=== PATIENT | female | born 1955 | race Caucasian/White ===

== ENCOUNTER → 2016-09-05 | Outpatient (REF) | payer MEDICARE ==
[~2016-09-05] MED LIST: ACET50TAOT PO; COZA50TA PO; FEXO180T58 PO; FLON1SPR; FLUO20CA9 PO; INSUHUMDS SC; INSULANT SC; LOSA25TA8 PO; METO-207 PO; MONT10TA2 PO; OMEP20CA3 PO; RISP1TAB3 PO; SENN1TAB2 PO; XARE15TA PO
[2016-09-05 18:28] LABS: CREATININE FOR GFR 1.52 MG/DL (0.55-1.02); MEAN CORPUSCULAR HEMOGLOBIN 30.1 pg (27.0-33.0); MEAN CORPUSCULAR HGB CONC 32.6 g/dl (32.0-36.5); MEAN CORPUSCULAR VOLUME 92.5 fl (80.0-96.0); POTASSIUM SERUM 4.3 MEQ/L (3.5-5.1); WHITE BLOOD COUNT 10.7 K/mm3 (4.0-10.0)
== END ==
LOC: M SFHCLERA 10:57
PROVIDERS: ATTEND Family Medicine
DX: R04.0 Epistaxis (principal)

== ENCOUNTER 2016-10-30 09:52 | Emergency (ER) | payer MEDICARE ==
--- NOTE | 2016-10-30 11:39 | EDDOCDS ---
Physician Documentation [facility] Name: Sussy Plaza Age: 61 yrs Sex: Female : 1955 Arrival Date: 10/30/2016 Time: 09:52 Bed Private MD: Jason Vargas MD Disposition: 10/30/16 10:19 Discharged to Home/Self Care. Impression: Cutaneous abscess of groin - right. - Condition is Stable. - Discharge Instructions: Abscess, Heat Therapy, Hypertension. - Prescriptions for Doxycycline Hyclate 100 mg Oral Tablet - take 1 tablet by ORAL route every 12 hours; 20 tablet. - Medication Reconciliation, Local Pharmacy Hours form. - Follow up: Jason Vargas; When: 1 - 2 days; Reason: Recheck today's complaints. Follow up: Emergency Department; When: As needed; Reason: Fever > 102F, Worsening of conditions. - Problem is new. - Symptoms have improved. - Notes: apply warm compresses, take antibiotic as prescribed. call to arrange follow up appointment with your physician for recheck in 48 hrs. return to ER if you develop fevers, vomiting or worsening condition. watch your blood pressure carefully. have it rechecked at your follow up appointment. return to ER if you develop headache, blurry vision or chest pain. avoid high sodium intake Historical: - Allergies: Amoxicillin; Erythromycin; PENICILLINS; SHELLFISH; - Home Meds: 1. Xarelto 15 mg oral tab daily (Last dose: 10/30/2016 08:00) 2. omeprazole 20 mg Oral cpDR 1 cap once daily (Last dose: 10/30/2016 08:00) 3. Risperdal 1 mg Oral tab 1 tab 2 times per day (Last dose: 10/30/2016 08:00) 4. fluoxetine 40 mg oral cap 1 cap once daily (Last dose: 10/30/2016 08:00) 5. montelukast 5 mg oral chew 1 tabs once daily (Last dose: 10/30/2016 08:00) 6. losartan 25 mg oral tab 1 tab once daily (Last dose: 10/30/2016 08:00) 7. Lantus 100 unit/mL Sub-Q soln 60 unit daily (Last dose: 10/29/2016) 8. Humalog 100 unit/mL Sub-Q crtg 5 unit three times a day 50 units this morning (Last dose: 10/30/2016 08:00) - PMHx: Bipolar disorder; Diabetes - NIDDM: controlled; DVT; CHF; Atrial Fib; - PSHx: Tonsillectomy; Aneurysm Repair, Brain; ; - Social history: Smoking status: Patient states was never smoker of tobacco. No barriers to communication noted, The patient speaks fluent Cape Verdean, Speaks appropriately for age. - Family history: Not pertinent. - : The pt / caregiver states he / she is on anticoagulants: Xarelto Home medication list is obtained from the patient. - Exposure Risk Screening:: None identified. Vital Signs: 10/30 09:53 BP 186 / 80; Pulse 86; Resp 18; Temp 98.5(O); Pulse Ox 98% on R/A; Weight 119.75 kg / nb2 264 lbs (R); Height 5 ft. 6 in. (167.64 cm) (R); Pain 0/10; 10:37 BP 198 / 96 RA Sitting (man/lg); Pulse 89; Resp 18; Temp 99.1(O); Pulse Ox 97% on R/A; kpj 11:10 BP 180 / 78; Pulse 72; Resp 18; Temp 97.6(T); Pulse Ox 98% on R/A; ar3 09:53 Body Mass Index 42.61 (119.75 kg, 167.64 cm) nb2 MDM: 10:18 Wound Culture & GS - All Other Sources Ordered. EDMS 10:38 Financial registration complete. mm15 10:59 Vital Signs ordered. ar2 11:05 [facility] Payment Agreement was scanned into [employer] and attached to record. mm15 Signatures: Dispatcher [employer] EDMS Vasiliy Beach PA-C PA-C ar2 Blanca Jiménez RN RN Uriel Estrella mm15 The chart was reviewed and I authenticate all verbal orders and agree with the evaluation and treatment provided.Attachments: 11:05 [facility] Payment Agreement mm15 MTDD
--- NOTE | 2016-10-30 11:40 | EDDOCDS ---
Nurse's Notes [facility] Name: Sussy Plaza Age: 61 yrs Sex: Female : 1955 Arrival Date: 10/30/2016 Time: 09:52 Bed PR2 / Private MD: Jason Vargas MD Diagnosis: Cutaneous abscess of groin-right Presentation: 10/30 09:59 Presenting complaint: Patient states: cyst on right lower abdomen. pt states she dsf noticed it yesterday. Adult Sepsis Screening: The patient does not have new or worsening altered mentation. Patient's respiratory rate is less than 22. Systolic blood pressure is greater than 100. Patient has a qSOFA score of 0- Negative Sepsis Screen. Suicide/Homicide risk assessment- the patient denies having any suicidal and/or homicidal ideations and does not present with any other emotional, behavioral or mental health complaints. Status: Patient is not a student services representative or dependent. Transition of care: patient was not received from another setting of care. 09:59 Acuity: CHACHO Level 4 dsf 09:59 Method Of Arrival: Walkin/Carried/Asstd dsf Triage Assessment: 10:03 General: Appears in no apparent distress, Behavior is appropriate for age, cooperative. dsf Pain: Location: right lower abdominal fold Pain currently is 4 out of 10 on a pain scale. Quality of pain is described as burning, tender. HIV screening NA for this visit Offered previously. Derm: Reports cyst to right lower abdominal fold. Historical: - Allergies: Amoxicillin; Erythromycin; PENICILLINS; SHELLFISH; - Home Meds: 1. Xarelto 15 mg oral tab daily (Last dose: 10/30/2016 08:00) 2. omeprazole 20 mg Oral cpDR 1 cap once daily (Last dose: 10/30/2016 08:00) 3. Risperdal 1 mg Oral tab 1 tab 2 times per day (Last dose: 10/30/2016 08:00) 4. fluoxetine 40 mg oral cap 1 cap once daily (Last dose: 10/30/2016 08:00) 5. montelukast 5 mg oral chew 1 tabs once daily (Last dose: 10/30/2016 08:00) 6. losartan 25 mg oral tab 1 tab once daily (Last dose: 10/30/2016 08:00) 7. Lantus 100 unit/mL Sub-Q soln 60 unit daily (Last dose: 10/29/2016) 8. Humalog 100 unit/mL Sub-Q crtg 5 unit three times a day 50 units this morning (Last dose: 10/30/2016 08:00) - PMHx: Bipolar disorder; Diabetes - NIDDM: controlled; DVT; CHF; Atrial Fib; - PSHx: Tonsillectomy; Aneurysm Repair, Brain; ; - Social history: Smoking status: Patient states was never smoker of tobacco. No barriers to communication noted, The patient speaks fluent Yi, Speaks appropriately for age. - Family history: Not pertinent. - : The pt / caregiver states he / she is on anticoagulants: Xarelto Home medication list is obtained from the patient. - Exposure Risk Screening:: None identified. Screenin:37 Screening information is obtained from the patient. Fall risk: No risks identified. dsf Assistance ADL's: requires no assistance with activities of daily living. Abuse/DV Screen: The patient / caregiver reports he/she is: not in a situation that causes fear, pain or injury. Nutritional screening: No deficits noted. Advance Directives: Currently, there is no health care proxy. home support is adequate. Assessment: 10:40 General: abscess to right lower abdominal fold draining blood and some yellow dsf discharge. Culture obtained and sent . 11:37 General: Appears in no apparent distress, Behavior is appropriate for age, cooperative. dsf Neurological: Level of Consciousness is awake, alert. Cardiovascular: Capillary refill < 3 seconds. Respiratory: Airway is patent Respiratory effort is even, unlabored, Respiratory pattern is regular, symmetrical. Derm: Skin is pink, warm & dry. Vital Signs: 09:53 BP 186 / 80; Pulse 86; Resp 18; Temp 98.5(O); Pulse Ox 98% on R/A; Weight 119.75 kg nb2 (R); Height 5 ft. 6 in. (167.64 cm) (R); Pain 0/10; 10:37 BP 198 / 96 RA Sitting (man/lg); Pulse 89; Resp 18; Temp 99.1(O); Pulse Ox 97% on R/A; kpj 11:10 BP 180 / 78; Pulse 72; Resp 18; Temp 97.6(T); Pulse Ox 98% on R/A; ar3 09:53 Body Mass Index 42.61 (119.75 kg, 167.64 cm) nb2 Vitals: 09:53 Log In Time: October 30, 2016 at 09:40. 2 ED Course: 09:53 Patient visited by Charissa Wade. nb2 09:53 Jason Vargas is Private Physician. nb2 09:53 Patient moved to Waiting nb2 09:57 Patient visited by Charissa Wade. nb2 09:57 Patient moved to Pre RCE nb2 09:59 Triage Initiated dsf 10:04 Vasiliy Beach PA-C is PHCP. ar2 10:04 Arturo Alfaro MD is Attending Physician. ar2 10:04 Patient visited by Vasiliy Beach PA-C. ar2 10:04 Patient moved to Triage 1 dsf 10:19 Jason Vargas is Referral Physician. ar2 10:40 Wound Culture & GS - All Other Sources Sent. ar3 10:44 Patient moved to PR2 / dls 11:01 Patient visited by Blanca Jiménez RN. dsf 11:05 [facility] Payment Agreement was scanned into [employer] and attached to record. mm15 11:10 Patient visited by Dot Durant PCA. ar3 11:37 The patient / caregiver is instructed regarding the plan of care and ED course. dsf 11:37 No IV's were initiated during this patient's visit. No procedures done that require dsf assistance. Order Results: There are currently no results for this order. Outcome: 10:19 Discharge ordered by Provider. ar2 11:37 Discharge Assessment: Patient awake, alert and oriented x 3. No cognitive and/or dsf functional deficits noted. Patient verbalized understanding of disposition instructions. patient administered narcotics - no. The following High Risk Discharge criteria are identified: None. Discharged to home ambulatory. Condition: stable. Discharge instructions given to patient, Instructed on discharge instructions, follow up and referral plans. medication usage, Use of warm compresses to the affected area, Demonstrated understanding of instructions, medications, Pt was receptive of discharge instructions/ teaching. Prescriptions given X 1. No special radiology studies were completed. Property sent home with patient. 11:38 Patient left the ED. dsf Signatures: Kirstin Vega RN RN Marnie Mei RN RN dls Vasiliy Beach, PA-Carmelo PA-C ar2 Dot Durant, STORE KEEPER STORE KEEPER ar3 Blanca Jiménez,RN RN Uriel Estrella mm15 Charissa Wade nb2 MTDD
--- NOTE | 2016-11-01 12:39 | EDDOCDS ---
Nurse's Notes [facility] Name: Sussy Plaza Age: 61 yrs Sex: Female : 1955 Arrival Date: 10/30/2016 Time: 09:52 Bed PR2 / Private MD: Jason Vargas MD Diagnosis: Cutaneous abscess of groin-right Presentation: 10/30 09:59 Presenting complaint: Patient states: cyst on right lower abdomen. pt states she dsf noticed it yesterday. Adult Sepsis Screening: The patient does not have new or worsening altered mentation. Patient's respiratory rate is less than 22. Systolic blood pressure is greater than 100. Patient has a qSOFA score of 0- Negative Sepsis Screen. Suicide/Homicide risk assessment- the patient denies having any suicidal and/or homicidal ideations and does not present with any other emotional, behavioral or mental health complaints. Status: Patient is not a government services professional or dependent. Transition of care: patient was not received from another setting of care. 09:59 Acuity: CHACHO Level 4 dsf 09:59 Method Of Arrival: Walkin/Carried/Asstd dsf Triage Assessment: 10:03 General: Appears in no apparent distress, Behavior is appropriate for age, cooperative. dsf Pain: Location: right lower abdominal fold Pain currently is 4 out of 10 on a pain scale. Quality of pain is described as burning, tender. HIV screening NA for this visit Offered previously. Derm: Reports cyst to right lower abdominal fold. Historical: - Allergies: Amoxicillin; Erythromycin; PENICILLINS; SHELLFISH; - Home Meds: 1. Xarelto 15 mg oral tab daily (Last dose: 10/30/2016 08:00) 2. omeprazole 20 mg Oral cpDR 1 cap once daily (Last dose: 10/30/2016 08:00) 3. Risperdal 1 mg Oral tab 1 tab 2 times per day (Last dose: 10/30/2016 08:00) 4. fluoxetine 40 mg oral cap 1 cap once daily (Last dose: 10/30/2016 08:00) 5. montelukast 5 mg oral chew 1 tabs once daily (Last dose: 10/30/2016 08:00) 6. losartan 25 mg oral tab 1 tab once daily (Last dose: 10/30/2016 08:00) 7. Lantus 100 unit/mL Sub-Q soln 60 unit daily (Last dose: 10/29/2016) 8. Humalog 100 unit/mL Sub-Q crtg 5 unit three times a day 50 units this morning (Last dose: 10/30/2016 08:00) - PMHx: Bipolar disorder; Diabetes - NIDDM: controlled; DVT; CHF; Atrial Fib; - PSHx: Tonsillectomy; Aneurysm Repair, Brain; ; - Social history: Smoking status: Patient states was never smoker of tobacco. No barriers to communication noted, The patient speaks fluent Wolof, Speaks appropriately for age. - Family history: Not pertinent. - : The pt / caregiver states he / she is on anticoagulants: Xarelto Home medication list is obtained from the patient. - Exposure Risk Screening:: None identified. Screenin:37 Screening information is obtained from the patient. Fall risk: No risks identified. dsf Assistance ADL's: requires no assistance with activities of daily living. Abuse/DV Screen: The patient / caregiver reports he/she is: not in a situation that causes fear, pain or injury. Nutritional screening: No deficits noted. Advance Directives: Currently, there is no health care proxy. home support is adequate. Assessment: 10:40 General: abscess to right lower abdominal fold draining blood and some yellow dsf discharge. Culture obtained and sent . 11:37 General: Appears in no apparent distress, Behavior is appropriate for age, cooperative. dsf Neurological: Level of Consciousness is awake, alert. Cardiovascular: Capillary refill < 3 seconds. Respiratory: Airway is patent Respiratory effort is even, unlabored, Respiratory pattern is regular, symmetrical. Derm: Skin is pink, warm & dry. Vital Signs: 09:53 BP 186 / 80; Pulse 86; Resp 18; Temp 98.5(O); Pulse Ox 98% on R/A; Weight 119.75 kg nb2 (R); Height 5 ft. 6 in. (167.64 cm) (R); Pain 0/10; 10:37 BP 198 / 96 RA Sitting (man/lg); Pulse 89; Resp 18; Temp 99.1(O); Pulse Ox 97% on R/A; kpj 11:10 BP 180 / 78; Pulse 72; Resp 18; Temp 97.6(T); Pulse Ox 98% on R/A; ar3 09:53 Body Mass Index 42.61 (119.75 kg, 167.64 cm) nb2 Vitals: 09:53 Log In Time: October 30, 2016 at 09:40. 2 ED Course: 09:53 Patient visited by Charissa Wade. nb2 09:53 Jason Vargas is Private Physician. nb2 09:53 Patient moved to Waiting nb2 09:57 Patient visited by Charissa Wade. nb2 09:57 Patient moved to Pre RCE nb2 09:59 Triage Initiated dsf 10:04 Vasiliy Beach PA-C is PHCP. ar2 10:04 Arturo Alfaro MD is Attending Physician. ar2 10:04 Patient visited by Vasiliy Beach PA-C. ar2 10:04 Patient moved to Triage 1 dsf 10:19 Jason Vargas is Referral Physician. ar2 10:40 Wound Culture & GS - All Other Sources Sent. ar3 10:44 Patient moved to PR dls 11:01 Patient visited by Blanca Jiménez RN. dsf 11:05 [facility] Payment Agreement was scanned into [employer] and attached to record. mm15 11:10 Patient visited by Dot Durant PCA. ar3 11:37 The patient / caregiver is instructed regarding the plan of care and ED course. dsf 11:37 No IV's were initiated during this patient's visit. No procedures done that require dsf assistance. 12:29 Patient name changed from Dorathia\S\\S\Mela\S\ to Dorathia\S\ \S\Mela. EDMS Order Results: Lab Order: Wound Culture & GS - All Other Sources; SPEC'M 10/30/16 10:40 Test: GRAM STAIN; Value: GRAM STAIN RESULT; Status: F Test: GRAM STAIN; Value: NO CELLS SEEN; Status: F Test: GRAM STAIN; Value: NO ORGANISMS SEEN; Status: F Test: WOUND CULTURE; Value: <EXTERNAL COMMENT eCWMed> FULL REPORT IN LAB NOTES (eCW and Medent).; Status: F Test: WOUND CULTURE; Value: ORGANISM 1: STAPHYLOCOCCUS AUREUS; Status: F Test: WOUND CULTURE; Value: STAPHYLOCOCCUS AUREUS; Status: F Test: WOUND CULTURE; Value: QUANTITY OF GROWTH HEAVY; Status: F Test: WOUND CULTURE; Value: GRAM POS SENSI - VITEK 67; Status: F Test: WOUND CULTURE; Value: Method: VIT2; Status: F Test: WOUND CULTURE; Value: TETRACYCLINE <=1 S; Status: F Test: WOUND CULTURE; Value: PENICILLIN G >=0.5 R; Status: F Test: WOUND CULTURE; Value: TRIMETHOPRIM/SULFAMETHOXAZOLE <=10 S; Status: F Test: WOUND CULTURE; Value: ERYTHROMYCIN >=8 R; Status: F Test: WOUND CULTURE; Value: GENTAMICIN <=0.5 S; Status: F Test: WOUND CULTURE; Value: CLINDAMYCIN <=0.25 S; Status: F Test: WOUND CULTURE; Value: OXACILLIN 0.5 S; Status: F Test: WOUND CULTURE; Value: VANCOMYCIN <=0.5 S; Status: F Test: WOUND CULTURE; Value: LINEZOLID (ZYVOX) 2 S; Status: F Outcome: 10:19 Discharge ordered by Provider. ar2 11:37 Discharge Assessment: Patient awake, alert and oriented x 3. No cognitive and/or dsf functional deficits noted. Patient verbalized understanding of disposition instructions. patient administered narcotics - no. The following High Risk Discharge criteria are identified: None. Discharged to home ambulatory. Condition: stable. Discharge instructions given to patient, Instructed on discharge instructions, follow up and referral plans. medication usage, Use of warm compresses to the affected area, Demonstrated understanding of instructions, medications, Pt was receptive of discharge instructions/ teaching. Prescriptions given X 1. No special radiology studies were completed. Property sent home with patient. 11:38 Patient left the ED. dsf Signatures: Dispatcher [employer] EDMI Kirstin Vega RN RN kpj Scott, Debra, RN RN dls Robertshaw, Aaron, PA-C PAAndriy ar2 Dot Durant PCA MUD LOGGER ar3 Blanca Jiménez RN RN dsf McGrath, Marlynn mm15 Charissa Wade nb2 Chart Complete MTDD
--- NOTE | 2016-11-01 12:39 | EDDOCDS ---
Physician Documentation [facility] Name: Sussy Plaza Age: 61 yrs Sex: Female : 1955 Arrival Date: 10/30/2016 Time: 09:52 Bed Private MD: Jason Vargas MD Disposition: 10/30/16 10:19 Discharged to Home/Self Care. Impression: Cutaneous abscess of groin - right. - Condition is Stable. - Discharge Instructions: Abscess, Heat Therapy, Hypertension. - Prescriptions for Doxycycline Hyclate 100 mg Oral Tablet - take 1 tablet by ORAL route every 12 hours; 20 tablet. - Medication Reconciliation, Local Pharmacy Hours form. - Follow up: Jason Vargas; When: 1 - 2 days; Reason: Recheck today's complaints. Follow up: Emergency Department; When: As needed; Reason: Fever > 102F, Worsening of conditions. - Problem is new. - Symptoms have improved. - Notes: apply warm compresses, take antibiotic as prescribed. call to arrange follow up appointment with your physician for recheck in 48 hrs. return to ER if you develop fevers, vomiting or worsening condition. watch your blood pressure carefully. have it rechecked at your follow up appointment. return to ER if you develop headache, blurry vision or chest pain. avoid high sodium intake Historical: - Allergies: Amoxicillin; Erythromycin; PENICILLINS; SHELLFISH; - Home Meds: 1. Xarelto 15 mg oral tab daily (Last dose: 10/30/2016 08:00) 2. omeprazole 20 mg Oral cpDR 1 cap once daily (Last dose: 10/30/2016 08:00) 3. Risperdal 1 mg Oral tab 1 tab 2 times per day (Last dose: 10/30/2016 08:00) 4. fluoxetine 40 mg oral cap 1 cap once daily (Last dose: 10/30/2016 08:00) 5. montelukast 5 mg oral chew 1 tabs once daily (Last dose: 10/30/2016 08:00) 6. losartan 25 mg oral tab 1 tab once daily (Last dose: 10/30/2016 08:00) 7. Lantus 100 unit/mL Sub-Q soln 60 unit daily (Last dose: 10/29/2016) 8. Humalog 100 unit/mL Sub-Q crtg 5 unit three times a day 50 units this morning (Last dose: 10/30/2016 08:00) - PMHx: Bipolar disorder; Diabetes - NIDDM: controlled; DVT; CHF; Atrial Fib; - PSHx: Tonsillectomy; Aneurysm Repair, Brain; ; - Social history: Smoking status: Patient states was never smoker of tobacco. No barriers to communication noted, The patient speaks fluent Faroese, Speaks appropriately for age. - Family history: Not pertinent. - : The pt / caregiver states he / she is on anticoagulants: Xarelto Home medication list is obtained from the patient. - Exposure Risk Screening:: None identified. Vital Signs: 10/30 09:53 BP 186 / 80; Pulse 86; Resp 18; Temp 98.5(O); Pulse Ox 98% on R/A; Weight 119.75 kg / nb2 264 lbs (R); Height 5 ft. 6 in. (167.64 cm) (R); Pain 0/10; 10:37 BP 198 / 96 RA Sitting (man/lg); Pulse 89; Resp 18; Temp 99.1(O); Pulse Ox 97% on R/A; kpj 11:10 BP 180 / 78; Pulse 72; Resp 18; Temp 97.6(T); Pulse Ox 98% on R/A; ar3 09:53 Body Mass Index 42.61 (119.75 kg, 167.64 cm) nb2 MDM: 10:18 Wound Culture & GS - All Other Sources Ordered. EDMS 10:38 Financial registration complete. mm15 10:59 Vital Signs ordered. ar2 11:05 [facility] Payment Agreement was scanned into [employer] and attached to record. mm15 Signatures: Dispatcher [employer] EDMS Vasiliy Beach PA-C PA-C ar2 Blanca Jiménez RN RN Uriel Estrella mm15 The chart was reviewed and I authenticate all verbal orders and agree with the evaluation and treatment provided.Attachments: 11:05 [facility] Payment Agreement mm15 Chart Complete MTDD
--- NOTE | 2016-11-01 12:39 | EDDOCDS ---
Physician Documentation [facility] Name: Sussy Plaza Age: 61 yrs Sex: Female : 1955 Arrival Date: 10/30/2016 Time: 09:52 Bed Private MD: Jason Vargas MD Disposition: 10/30/16 10:19 Discharged to Home/Self Care. Impression: Cutaneous abscess of groin - right. - Condition is Stable. - Discharge Instructions: Abscess, Heat Therapy, Hypertension. - Prescriptions for Doxycycline Hyclate 100 mg Oral Tablet - take 1 tablet by ORAL route every 12 hours; 20 tablet. - Medication Reconciliation, Local Pharmacy Hours form. - Follow up: Jason Vargas; When: 1 - 2 days; Reason: Recheck today's complaints. Follow up: Emergency Department; When: As needed; Reason: Fever > 102F, Worsening of conditions. - Problem is new. - Symptoms have improved. - Notes: apply warm compresses, take antibiotic as prescribed. call to arrange follow up appointment with your physician for recheck in 48 hrs. return to ER if you develop fevers, vomiting or worsening condition. watch your blood pressure carefully. have it rechecked at your follow up appointment. return to ER if you develop headache, blurry vision or chest pain. avoid high sodium intake Historical: - Allergies: Amoxicillin; Erythromycin; PENICILLINS; SHELLFISH; - Home Meds: 1. Xarelto 15 mg oral tab daily (Last dose: 10/30/2016 08:00) 2. omeprazole 20 mg Oral cpDR 1 cap once daily (Last dose: 10/30/2016 08:00) 3. Risperdal 1 mg Oral tab 1 tab 2 times per day (Last dose: 10/30/2016 08:00) 4. fluoxetine 40 mg oral cap 1 cap once daily (Last dose: 10/30/2016 08:00) 5. montelukast 5 mg oral chew 1 tabs once daily (Last dose: 10/30/2016 08:00) 6. losartan 25 mg oral tab 1 tab once daily (Last dose: 10/30/2016 08:00) 7. Lantus 100 unit/mL Sub-Q soln 60 unit daily (Last dose: 10/29/2016) 8. Humalog 100 unit/mL Sub-Q crtg 5 unit three times a day 50 units this morning (Last dose: 10/30/2016 08:00) - PMHx: Bipolar disorder; Diabetes - NIDDM: controlled; DVT; CHF; Atrial Fib; - PSHx: Tonsillectomy; Aneurysm Repair, Brain; ; - Social history: Smoking status: Patient states was never smoker of tobacco. No barriers to communication noted, The patient speaks fluent Tongan, Speaks appropriately for age. - Family history: Not pertinent. - : The pt / caregiver states he / she is on anticoagulants: Xarelto Home medication list is obtained from the patient. - Exposure Risk Screening:: None identified. Vital Signs: 10/30 09:53 BP 186 / 80; Pulse 86; Resp 18; Temp 98.5(O); Pulse Ox 98% on R/A; Weight 119.75 kg / nb2 264 lbs (R); Height 5 ft. 6 in. (167.64 cm) (R); Pain 0/10; 10:37 BP 198 / 96 RA Sitting (man/lg); Pulse 89; Resp 18; Temp 99.1(O); Pulse Ox 97% on R/A; kpj 11:10 BP 180 / 78; Pulse 72; Resp 18; Temp 97.6(T); Pulse Ox 98% on R/A; ar3 09:53 Body Mass Index 42.61 (119.75 kg, 167.64 cm) nb2 MDM: 10:18 Wound Culture & GS - All Other Sources Ordered. EDMS 10:38 Financial registration complete. mm15 10:59 Vital Signs ordered. ar2 11:05 [facility] Payment Agreement was scanned into [employer] and attached to record. mm15 Signatures: Dispatcher [employer] EDMS Vasiliy Beach PA-C PA-C ar2 Blanca Jiménez RN RN Uriel Estrella mm15 The chart was reviewed and I authenticate all verbal orders and agree with the evaluation and treatment provided.Attachments: 11:05 [facility] Payment Agreement mm15 Chart Complete MTDD
--- NOTE | 2016-11-02 10:17 | EDDOCDS ---
Physician Documentation [facility] Name: Sussy Plaza Age: 61 yrs Sex: Female : 1955 Arrival Date: 10/30/2016 Time: 09:52 Bed Private MD: Jason Vargas MD Disposition: 10/30/16 10:19 Discharged to Home/Self Care. Impression: Cutaneous abscess of groin - right. - Condition is Stable. - Discharge Instructions: Abscess, Heat Therapy, Hypertension. - Prescriptions for Doxycycline Hyclate 100 mg Oral Tablet - take 1 tablet by ORAL route every 12 hours; 20 tablet. - Medication Reconciliation, Local Pharmacy Hours form. - Follow up: Jason Vargas; When: 1 - 2 days; Reason: Recheck today's complaints. Follow up: Emergency Department; When: As needed; Reason: Fever > 102F, Worsening of conditions. - Problem is new. - Symptoms have improved. - Notes: apply warm compresses, take antibiotic as prescribed. call to arrange follow up appointment with your physician for recheck in 48 hrs. return to ER if you develop fevers, vomiting or worsening condition. watch your blood pressure carefully. have it rechecked at your follow up appointment. return to ER if you develop headache, blurry vision or chest pain. avoid high sodium intake Historical: - Allergies: Amoxicillin; Erythromycin; PENICILLINS; SHELLFISH; - Home Meds: 1. Xarelto 15 mg oral tab daily (Last dose: 10/30/2016 08:00) 2. omeprazole 20 mg Oral cpDR 1 cap once daily (Last dose: 10/30/2016 08:00) 3. Risperdal 1 mg Oral tab 1 tab 2 times per day (Last dose: 10/30/2016 08:00) 4. fluoxetine 40 mg oral cap 1 cap once daily (Last dose: 10/30/2016 08:00) 5. montelukast 5 mg oral chew 1 tabs once daily (Last dose: 10/30/2016 08:00) 6. losartan 25 mg oral tab 1 tab once daily (Last dose: 10/30/2016 08:00) 7. Lantus 100 unit/mL Sub-Q soln 60 unit daily (Last dose: 10/29/2016) 8. Humalog 100 unit/mL Sub-Q crtg 5 unit three times a day 50 units this morning (Last dose: 10/30/2016 08:00) - PMHx: Bipolar disorder; Diabetes - NIDDM: controlled; DVT; CHF; Atrial Fib; - PSHx: Tonsillectomy; Aneurysm Repair, Brain; ; - Social history: Smoking status: Patient states was never smoker of tobacco. No barriers to communication noted, The patient speaks fluent [place] Of [place], Speaks appropriately for age. - Family history: Not pertinent. - : The pt / caregiver states he / she is on anticoagulants: Xarelto Home medication list is obtained from the patient. - Exposure Risk Screening:: None identified. Vital Signs: 10/30 09:53 BP 186 / 80; Pulse 86; Resp 18; Temp 98.5(O); Pulse Ox 98% on R/A; Weight 119.75 kg / nb2 264 lbs (R); Height 5 ft. 6 in. (167.64 cm) (R); Pain 0/10; 10:37 BP 198 / 96 RA Sitting (man/lg); Pulse 89; Resp 18; Temp 99.1(O); Pulse Ox 97% on R/A; kpj 11:10 BP 180 / 78; Pulse 72; Resp 18; Temp 97.6(T); Pulse Ox 98% on R/A; ar3 09:53 Body Mass Index 42.61 (119.75 kg, 167.64 cm) nb2 MDM: 10:18 Wound Culture & GS - All Other Sources Ordered. EDMS 10:38 Financial registration complete. mm15 10:59 Vital Signs ordered. ar2 11:05 [facility] Payment Agreement was scanned into [employer] and attached to record. mm15 Signatures: Dispatcher [employer] EDMS Vasiliy Beach PA-C PA-C ar2 Blanca Jiménez RN RN Uriel Estrella mm15 The chart was reviewed and I authenticate all verbal orders and agree with the evaluation and treatment provided.Attachments: 11:05 [facility] Payment Agreement mm15 MTDD
--- NOTE | 2016-11-02 10:18 | EDDOCDS ---
Physician Documentation [facility] Name: Sussy Plaza Age: 61 yrs Sex: Female : 1955 Arrival Date: 10/30/2016 Time: 09:52 Bed Private MD: Jason Vargas MD Disposition: 10/30/16 10:19 Discharged to Home/Self Care. Impression: Cutaneous abscess of groin - right. - Condition is Stable. - Discharge Instructions: Abscess, Heat Therapy, Hypertension. - Prescriptions for Doxycycline Hyclate 100 mg Oral Tablet - take 1 tablet by ORAL route every 12 hours; 20 tablet. - Medication Reconciliation, Local Pharmacy Hours form. - Follow up: Jason Vargas; When: 1 - 2 days; Reason: Recheck today's complaints. Follow up: Emergency Department; When: As needed; Reason: Fever > 102F, Worsening of conditions. - Problem is new. - Symptoms have improved. - Notes: apply warm compresses, take antibiotic as prescribed. call to arrange follow up appointment with your physician for recheck in 48 hrs. return to ER if you develop fevers, vomiting or worsening condition. watch your blood pressure carefully. have it rechecked at your follow up appointment. return to ER if you develop headache, blurry vision or chest pain. avoid high sodium intake Historical: - Allergies: Amoxicillin; Erythromycin; PENICILLINS; SHELLFISH; - Home Meds: 1. Xarelto 15 mg oral tab daily (Last dose: 10/30/2016 08:00) 2. omeprazole 20 mg Oral cpDR 1 cap once daily (Last dose: 10/30/2016 08:00) 3. Risperdal 1 mg Oral tab 1 tab 2 times per day (Last dose: 10/30/2016 08:00) 4. fluoxetine 40 mg oral cap 1 cap once daily (Last dose: 10/30/2016 08:00) 5. montelukast 5 mg oral chew 1 tabs once daily (Last dose: 10/30/2016 08:00) 6. losartan 25 mg oral tab 1 tab once daily (Last dose: 10/30/2016 08:00) 7. Lantus 100 unit/mL Sub-Q soln 60 unit daily (Last dose: 10/29/2016) 8. Humalog 100 unit/mL Sub-Q crtg 5 unit three times a day 50 units this morning (Last dose: 10/30/2016 08:00) - PMHx: Bipolar disorder; Diabetes - NIDDM: controlled; DVT; CHF; Atrial Fib; - PSHx: Tonsillectomy; Aneurysm Repair, Brain; ; - Social history: Smoking status: Patient states was never smoker of tobacco. No barriers to communication noted, The patient speaks fluent Maldivian, Speaks appropriately for age. - Family history: Not pertinent. - : The pt / caregiver states he / she is on anticoagulants: Xarelto Home medication list is obtained from the patient. - Exposure Risk Screening:: None identified. Vital Signs: 10/30 09:53 BP 186 / 80; Pulse 86; Resp 18; Temp 98.5(O); Pulse Ox 98% on R/A; Weight 119.75 kg / nb2 264 lbs (R); Height 5 ft. 6 in. (167.64 cm) (R); Pain 0/10; 10:37 BP 198 / 96 RA Sitting (man/lg); Pulse 89; Resp 18; Temp 99.1(O); Pulse Ox 97% on R/A; kpj 11:10 BP 180 / 78; Pulse 72; Resp 18; Temp 97.6(T); Pulse Ox 98% on R/A; ar3 09:53 Body Mass Index 42.61 (119.75 kg, 167.64 cm) nb2 MDM: 10:18 Wound Culture & GS - All Other Sources Ordered. EDMS 10:38 Financial registration complete. mm15 10:59 Vital Signs ordered. ar2 11:05 [facility] Payment Agreement was scanned into [employer] and attached to record. mm15 Signatures: Dispatcher [employer] EDMS Vasiliy Beach PA-C PA-C ar2 Blanca Jiménez RN RN Uriel Estrella mm15 The chart was reviewed and I authenticate all verbal orders and agree with the evaluation and treatment provided.Attachments: 11:05 [facility] Payment Agreement mm15 Chart Complete MTDD
--- NOTE | 2016-11-02 10:18 | EDDOCDS ---
Nurse's Notes [facility] Name: Sussy Plaza Age: 61 yrs Sex: Female : 1955 Arrival Date: 10/30/2016 Time: 09:52 Bed PR2 / Private MD: Jason Vargas MD Diagnosis: Cutaneous abscess of groin-right Presentation: 10/30 09:59 Presenting complaint: Patient states: cyst on right lower abdomen. pt states she dsf noticed it yesterday. Adult Sepsis Screening: The patient does not have new or worsening altered mentation. Patient's respiratory rate is less than 22. Systolic blood pressure is greater than 100. Patient has a qSOFA score of 0- Negative Sepsis Screen. Suicide/Homicide risk assessment- the patient denies having any suicidal and/or homicidal ideations and does not present with any other emotional, behavioral or mental health complaints. Status: Patient is not a representative personal service or dependent. Transition of care: patient was not received from another setting of care. 09:59 Acuity: CHACHO Level 4 dsf 09:59 Method Of Arrival: Walkin/Carried/Asstd dsf Triage Assessment: 10:03 General: Appears in no apparent distress, Behavior is appropriate for age, cooperative. dsf Pain: Location: right lower abdominal fold Pain currently is 4 out of 10 on a pain scale. Quality of pain is described as burning, tender. HIV screening NA for this visit Offered previously. Derm: Reports cyst to right lower abdominal fold. Historical: - Allergies: Amoxicillin; Erythromycin; PENICILLINS; SHELLFISH; - Home Meds: 1. Xarelto 15 mg oral tab daily (Last dose: 10/30/2016 08:00) 2. omeprazole 20 mg Oral cpDR 1 cap once daily (Last dose: 10/30/2016 08:00) 3. Risperdal 1 mg Oral tab 1 tab 2 times per day (Last dose: 10/30/2016 08:00) 4. fluoxetine 40 mg oral cap 1 cap once daily (Last dose: 10/30/2016 08:00) 5. montelukast 5 mg oral chew 1 tabs once daily (Last dose: 10/30/2016 08:00) 6. losartan 25 mg oral tab 1 tab once daily (Last dose: 10/30/2016 08:00) 7. Lantus 100 unit/mL Sub-Q soln 60 unit daily (Last dose: 10/29/2016) 8. Humalog 100 unit/mL Sub-Q crtg 5 unit three times a day 50 units this morning (Last dose: 10/30/2016 08:00) - PMHx: Bipolar disorder; Diabetes - NIDDM: controlled; DVT; CHF; Atrial Fib; - PSHx: Tonsillectomy; Aneurysm Repair, Brain; ; - Social history: Smoking status: Patient states was never smoker of tobacco. No barriers to communication noted, The patient speaks fluent Welsh, Speaks appropriately for age. - Family history: Not pertinent. - : The pt / caregiver states he / she is on anticoagulants: Xarelto Home medication list is obtained from the patient. - Exposure Risk Screening:: None identified. Screenin:37 Screening information is obtained from the patient. Fall risk: No risks identified. dsf Assistance ADL's: requires no assistance with activities of daily living. Abuse/DV Screen: The patient / caregiver reports he/she is: not in a situation that causes fear, pain or injury. Nutritional screening: No deficits noted. Advance Directives: Currently, there is no health care proxy. home support is adequate. Assessment: 10:40 General: abscess to right lower abdominal fold draining blood and some yellow dsf discharge. Culture obtained and sent . 11:37 General: Appears in no apparent distress, Behavior is appropriate for age, cooperative. dsf Neurological: Level of Consciousness is awake, alert. Cardiovascular: Capillary refill < 3 seconds. Respiratory: Airway is patent Respiratory effort is even, unlabored, Respiratory pattern is regular, symmetrical. Derm: Skin is pink, warm & dry. Vital Signs: 09:53 BP 186 / 80; Pulse 86; Resp 18; Temp 98.5(O); Pulse Ox 98% on R/A; Weight 119.75 kg nb2 (R); Height 5 ft. 6 in. (167.64 cm) (R); Pain 0/10; 10:37 BP 198 / 96 RA Sitting (man/lg); Pulse 89; Resp 18; Temp 99.1(O); Pulse Ox 97% on R/A; kpj 11:10 BP 180 / 78; Pulse 72; Resp 18; Temp 97.6(T); Pulse Ox 98% on R/A; ar3 09:53 Body Mass Index 42.61 (119.75 kg, 167.64 cm) nb2 Vitals: 09:53 Log In Time: October 30, 2016 at 09:40. 2 ED Course: 09:53 Patient visited by Charissa Wade. nb2 09:53 Jason Vargas is Private Physician. nb2 09:53 Patient moved to Waiting nb2 09:57 Patient visited by Charissa Wade. nb2 09:57 Patient moved to Pre RCE nb2 09:59 Triage Initiated dsf 10:04 Vasiliy Beach PA-C is PHCP. ar2 10:04 Arturo Alfaro MD is Attending Physician. ar2 10:04 Patient visited by Vasiliy Beach PA-C. ar2 10:04 Patient moved to Triage 1 dsf 10:19 Jason Vargas is Referral Physician. ar2 10:40 Wound Culture & GS - All Other Sources Sent. ar3 10:44 Patient moved to PR dls 11:01 Patient visited by Blanca Jiménez RN. dsf 11:05 [facility] Payment Agreement was scanned into [employer] and attached to record. mm15 11:10 Patient visited by Dot Durant PCA. ar3 11:37 The patient / caregiver is instructed regarding the plan of care and ED course. dsf 11:37 No IV's were initiated during this patient's visit. No procedures done that require dsf assistance. 12:29 Patient name changed from Dorathia\S\\S\Mela\S\ to Dorathia\S\ \S\Mela. EDMS Order Results: Lab Order: Wound Culture & GS - All Other Sources; SPEC'M 10/30/16 10:40 Test: GRAM STAIN; Value: GRAM STAIN RESULT; Status: F Test: GRAM STAIN; Value: NO CELLS SEEN; Status: F Test: GRAM STAIN; Value: NO ORGANISMS SEEN; Status: F Test: WOUND CULTURE; Value: <EXTERNAL COMMENT eCWMed> FULL REPORT IN LAB NOTES (eCW and Medent).; Status: F Test: WOUND CULTURE; Value: ORGANISM 1: STAPHYLOCOCCUS AUREUS; Status: F Test: WOUND CULTURE; Value: STAPHYLOCOCCUS AUREUS; Status: F Test: WOUND CULTURE; Value: QUANTITY OF GROWTH HEAVY; Status: F Test: WOUND CULTURE; Value: GRAM POS SENSI - VITEK 67; Status: F Test: WOUND CULTURE; Value: Method: VIT2; Status: F Test: WOUND CULTURE; Value: TETRACYCLINE <=1 S; Status: F Test: WOUND CULTURE; Value: PENICILLIN G >=0.5 R; Status: F Test: WOUND CULTURE; Value: TRIMETHOPRIM/SULFAMETHOXAZOLE <=10 S; Status: F Test: WOUND CULTURE; Value: ERYTHROMYCIN >=8 R; Status: F Test: WOUND CULTURE; Value: GENTAMICIN <=0.5 S; Status: F Test: WOUND CULTURE; Value: CLINDAMYCIN <=0.25 S; Status: F Test: WOUND CULTURE; Value: OXACILLIN 0.5 S; Status: F Test: WOUND CULTURE; Value: VANCOMYCIN <=0.5 S; Status: F Test: WOUND CULTURE; Value: LINEZOLID (ZYVOX) 2 S; Status: F Outcome: 10:19 Discharge ordered by Provider. ar2 11:37 Discharge Assessment: Patient awake, alert and oriented x 3. No cognitive and/or dsf functional deficits noted. Patient verbalized understanding of disposition instructions. patient administered narcotics - no. The following High Risk Discharge criteria are identified: None. Discharged to home ambulatory. Condition: stable. Discharge instructions given to patient, Instructed on discharge instructions, follow up and referral plans. medication usage, Use of warm compresses to the affected area, Demonstrated understanding of instructions, medications, Pt was receptive of discharge instructions/ teaching. Prescriptions given X 1. No special radiology studies were completed. Property sent home with patient. 11:38 Patient left the ED. dsf Addendum: 11/02/2016 10:16 Narrative: Urine culture results reviewed with Dr. Dobbs and no change in treatment kcs needed. Signatures: Dispatcher [employer] Ashlee Hi RN RN Kirstin Clarke RN RN kpj Scott, Debra, RN RN dls Robertshaw, Aaron, PA-C PA-C ar2 Dot Durant PCA LONG TERM ar3 Blanca Jiménez RN RN dsf Uriel Calvillo mm15 Charissa Wade2 Chart Complete MTDD
--- NOTE | 2016-11-02 10:18 | EDDOCDS ---
Physician Documentation [facility] Name: Sussy Plaza Age: 61 yrs Sex: Female : 1955 Arrival Date: 10/30/2016 Time: 09:52 Bed Private MD: Jason Vargas MD Disposition: 10/30/16 10:19 Discharged to Home/Self Care. Impression: Cutaneous abscess of groin - right. - Condition is Stable. - Discharge Instructions: Abscess, Heat Therapy, Hypertension. - Prescriptions for Doxycycline Hyclate 100 mg Oral Tablet - take 1 tablet by ORAL route every 12 hours; 20 tablet. - Medication Reconciliation, Local Pharmacy Hours form. - Follow up: Jason Vargas; When: 1 - 2 days; Reason: Recheck today's complaints. Follow up: Emergency Department; When: As needed; Reason: Fever > 102F, Worsening of conditions. - Problem is new. - Symptoms have improved. - Notes: apply warm compresses, take antibiotic as prescribed. call to arrange follow up appointment with your physician for recheck in 48 hrs. return to ER if you develop fevers, vomiting or worsening condition. watch your blood pressure carefully. have it rechecked at your follow up appointment. return to ER if you develop headache, blurry vision or chest pain. avoid high sodium intake Historical: - Allergies: Amoxicillin; Erythromycin; PENICILLINS; SHELLFISH; - Home Meds: 1. Xarelto 15 mg oral tab daily (Last dose: 10/30/2016 08:00) 2. omeprazole 20 mg Oral cpDR 1 cap once daily (Last dose: 10/30/2016 08:00) 3. Risperdal 1 mg Oral tab 1 tab 2 times per day (Last dose: 10/30/2016 08:00) 4. fluoxetine 40 mg oral cap 1 cap once daily (Last dose: 10/30/2016 08:00) 5. montelukast 5 mg oral chew 1 tabs once daily (Last dose: 10/30/2016 08:00) 6. losartan 25 mg oral tab 1 tab once daily (Last dose: 10/30/2016 08:00) 7. Lantus 100 unit/mL Sub-Q soln 60 unit daily (Last dose: 10/29/2016) 8. Humalog 100 unit/mL Sub-Q crtg 5 unit three times a day 50 units this morning (Last dose: 10/30/2016 08:00) - PMHx: Bipolar disorder; Diabetes - NIDDM: controlled; DVT; CHF; Atrial Fib; - PSHx: Tonsillectomy; Aneurysm Repair, Brain; ; - Social history: Smoking status: Patient states was never smoker of tobacco. No barriers to communication noted, The patient speaks fluent Brazilian, Speaks appropriately for age. - Family history: Not pertinent. - : The pt / caregiver states he / she is on anticoagulants: Xarelto Home medication list is obtained from the patient. - Exposure Risk Screening:: None identified. Vital Signs: 10/30 09:53 BP 186 / 80; Pulse 86; Resp 18; Temp 98.5(O); Pulse Ox 98% on R/A; Weight 119.75 kg / nb2 264 lbs (R); Height 5 ft. 6 in. (167.64 cm) (R); Pain 0/10; 10:37 BP 198 / 96 RA Sitting (man/lg); Pulse 89; Resp 18; Temp 99.1(O); Pulse Ox 97% on R/A; kpj 11:10 BP 180 / 78; Pulse 72; Resp 18; Temp 97.6(T); Pulse Ox 98% on R/A; ar3 09:53 Body Mass Index 42.61 (119.75 kg, 167.64 cm) nb2 MDM: 10:18 Wound Culture & GS - All Other Sources Ordered. EDMS 10:38 Financial registration complete. mm15 10:59 Vital Signs ordered. ar2 11:05 [facility] Payment Agreement was scanned into [employer] and attached to record. mm15 Signatures: Dispatcher [employer] EDMS Vasiliy Beach PA-C PA-C ar2 Blanca Jiménez RN RN Uriel Estrella mm15 The chart was reviewed and I authenticate all verbal orders and agree with the evaluation and treatment provided.Attachments: 11:05 [facility] Payment Agreement mm15 Chart Complete MTDD
--- NOTE | 2016-11-02 10:30 | EDDOCDS ---
Physician Documentation [facility] Name: Sussy Plaza Age: 61 yrs Sex: Female : 1955 Arrival Date: 10/30/2016 Time: 09:52 Bed Private MD: Jason Vargas MD Disposition: 10/30/16 10:19 Discharged to Home/Self Care. Impression: Cutaneous abscess of groin - right. - Condition is Stable. - Discharge Instructions: Abscess, Heat Therapy, Hypertension. - Prescriptions for Doxycycline Hyclate 100 mg Oral Tablet - take 1 tablet by ORAL route every 12 hours; 20 tablet. - Medication Reconciliation, Local Pharmacy Hours form. - Follow up: Jason Vargas; When: 1 - 2 days; Reason: Recheck today's complaints. Follow up: Emergency Department; When: As needed; Reason: Fever > 102F, Worsening of conditions. - Problem is new. - Symptoms have improved. - Notes: apply warm compresses, take antibiotic as prescribed. call to arrange follow up appointment with your physician for recheck in 48 hrs. return to ER if you develop fevers, vomiting or worsening condition. watch your blood pressure carefully. have it rechecked at your follow up appointment. return to ER if you develop headache, blurry vision or chest pain. avoid high sodium intake Historical: - Allergies: Amoxicillin; Erythromycin; PENICILLINS; SHELLFISH; - Home Meds: 1. Xarelto 15 mg oral tab daily (Last dose: 10/30/2016 08:00) 2. omeprazole 20 mg Oral cpDR 1 cap once daily (Last dose: 10/30/2016 08:00) 3. Risperdal 1 mg Oral tab 1 tab 2 times per day (Last dose: 10/30/2016 08:00) 4. fluoxetine 40 mg oral cap 1 cap once daily (Last dose: 10/30/2016 08:00) 5. montelukast 5 mg oral chew 1 tabs once daily (Last dose: 10/30/2016 08:00) 6. losartan 25 mg oral tab 1 tab once daily (Last dose: 10/30/2016 08:00) 7. Lantus 100 unit/mL Sub-Q soln 60 unit daily (Last dose: 10/29/2016) 8. Humalog 100 unit/mL Sub-Q crtg 5 unit three times a day 50 units this morning (Last dose: 10/30/2016 08:00) - PMHx: Bipolar disorder; Diabetes - NIDDM: controlled; DVT; CHF; Atrial Fib; - PSHx: Tonsillectomy; Aneurysm Repair, Brain; ; - Social history: Smoking status: Patient states was never smoker of tobacco. No barriers to communication noted, The patient speaks fluent Monegasque, Speaks appropriately for age. - Family history: Not pertinent. - : The pt / caregiver states he / she is on anticoagulants: Xarelto Home medication list is obtained from the patient. - Exposure Risk Screening:: None identified. Vital Signs: 10/30 09:53 BP 186 / 80; Pulse 86; Resp 18; Temp 98.5(O); Pulse Ox 98% on R/A; Weight 119.75 kg / nb2 264 lbs (R); Height 5 ft. 6 in. (167.64 cm) (R); Pain 0/10; 10:37 BP 198 / 96 RA Sitting (man/lg); Pulse 89; Resp 18; Temp 99.1(O); Pulse Ox 97% on R/A; kpj 11:10 BP 180 / 78; Pulse 72; Resp 18; Temp 97.6(T); Pulse Ox 98% on R/A; ar3 09:53 Body Mass Index 42.61 (119.75 kg, 167.64 cm) nb2 MDM: 10:18 Wound Culture & GS - All Other Sources Ordered. EDMS 10:38 Financial registration complete. mm15 10:59 Vital Signs ordered. ar2 11:05 [facility] Payment Agreement was scanned into [employer] and attached to record. mm15 Signatures: Dispatcher [employer] EDMS Vasiliy Beach PA-C PA-C ar2 Blanca Jiménez RN RN Uriel Estrella mm15 The chart was reviewed and I authenticate all verbal orders and agree with the evaluation and treatment provided.Attachments: 11:05 [facility] Payment Agreement mm15 Chart Complete MTDD
--- NOTE | 2016-11-02 10:30 | EDDOCDS ---
Physician Documentation [facility] Name: Sussy Plaza Age: 61 yrs Sex: Female : 1955 Arrival Date: 10/30/2016 Time: 09:52 Bed Private MD: Jason Vargas MD Disposition: 10/30/16 10:19 Discharged to Home/Self Care. Impression: Cutaneous abscess of groin - right. - Condition is Stable. - Discharge Instructions: Abscess, Heat Therapy, Hypertension. - Prescriptions for Doxycycline Hyclate 100 mg Oral Tablet - take 1 tablet by ORAL route every 12 hours; 20 tablet. - Medication Reconciliation, Local Pharmacy Hours form. - Follow up: Jason Vargas; When: 1 - 2 days; Reason: Recheck today's complaints. Follow up: Emergency Department; When: As needed; Reason: Fever > 102F, Worsening of conditions. - Problem is new. - Symptoms have improved. - Notes: apply warm compresses, take antibiotic as prescribed. call to arrange follow up appointment with your physician for recheck in 48 hrs. return to ER if you develop fevers, vomiting or worsening condition. watch your blood pressure carefully. have it rechecked at your follow up appointment. return to ER if you develop headache, blurry vision or chest pain. avoid high sodium intake Historical: - Allergies: Amoxicillin; Erythromycin; PENICILLINS; SHELLFISH; - Home Meds: 1. Xarelto 15 mg oral tab daily (Last dose: 10/30/2016 08:00) 2. omeprazole 20 mg Oral cpDR 1 cap once daily (Last dose: 10/30/2016 08:00) 3. Risperdal 1 mg Oral tab 1 tab 2 times per day (Last dose: 10/30/2016 08:00) 4. fluoxetine 40 mg oral cap 1 cap once daily (Last dose: 10/30/2016 08:00) 5. montelukast 5 mg oral chew 1 tabs once daily (Last dose: 10/30/2016 08:00) 6. losartan 25 mg oral tab 1 tab once daily (Last dose: 10/30/2016 08:00) 7. Lantus 100 unit/mL Sub-Q soln 60 unit daily (Last dose: 10/29/2016) 8. Humalog 100 unit/mL Sub-Q crtg 5 unit three times a day 50 units this morning (Last dose: 10/30/2016 08:00) - PMHx: Bipolar disorder; Diabetes - NIDDM: controlled; DVT; CHF; Atrial Fib; - PSHx: Tonsillectomy; Aneurysm Repair, Brain; ; - Social history: Smoking status: Patient states was never smoker of tobacco. No barriers to communication noted, The patient speaks fluent Jamaican, Speaks appropriately for age. - Family history: Not pertinent. - : The pt / caregiver states he / she is on anticoagulants: Xarelto Home medication list is obtained from the patient. - Exposure Risk Screening:: None identified. Vital Signs: 10/30 09:53 BP 186 / 80; Pulse 86; Resp 18; Temp 98.5(O); Pulse Ox 98% on R/A; Weight 119.75 kg / nb2 264 lbs (R); Height 5 ft. 6 in. (167.64 cm) (R); Pain 0/10; 10:37 BP 198 / 96 RA Sitting (man/lg); Pulse 89; Resp 18; Temp 99.1(O); Pulse Ox 97% on R/A; kpj 11:10 BP 180 / 78; Pulse 72; Resp 18; Temp 97.6(T); Pulse Ox 98% on R/A; ar3 09:53 Body Mass Index 42.61 (119.75 kg, 167.64 cm) nb2 MDM: 10:18 Wound Culture & GS - All Other Sources Ordered. EDMS 10:38 Financial registration complete. mm15 10:59 Vital Signs ordered. ar2 11:05 [facility] Payment Agreement was scanned into Instant [employer] and attached to record. mm15 Signatures: Dispatcher [employer] EDMS Vasiliy Beach PA-C PA-C ar2 Blanca Jiménez RN RN Uriel Estrella mm15 The chart was reviewed and I authenticate all verbal orders and agree with the evaluation and treatment provided.Attachments: 11:05 [facility] Payment Agreement mm15 Chart Complete MTDD
--- NOTE | 2016-11-02 10:31 | EDDOCDS ---
Nurse's Notes [facility] Name: Sussy Plaza Age: 61 yrs Sex: Female : 1955 Arrival Date: 10/30/2016 Time: 09:52 Bed PR2 / Private MD: Jason Vargas MD Diagnosis: Cutaneous abscess of groin-right Presentation: 10/30 09:59 Presenting complaint: Patient states: cyst on right lower abdomen. pt states she dsf noticed it yesterday. Adult Sepsis Screening: The patient does not have new or worsening altered mentation. Patient's respiratory rate is less than 22. Systolic blood pressure is greater than 100. Patient has a qSOFA score of 0- Negative Sepsis Screen. Suicide/Homicide risk assessment- the patient denies having any suicidal and/or homicidal ideations and does not present with any other emotional, behavioral or mental health complaints. Status: Patient is not a chief service dispatcher or dependent. Transition of care: patient was not received from another setting of care. 09:59 Acuity: CHACHO Level 4 dsf 09:59 Method Of Arrival: Walkin/Carried/Asstd dsf Triage Assessment: 10:03 General: Appears in no apparent distress, Behavior is appropriate for age, cooperative. dsf Pain: Location: right lower abdominal fold Pain currently is 4 out of 10 on a pain scale. Quality of pain is described as burning, tender. HIV screening NA for this visit Offered previously. Derm: Reports cyst to right lower abdominal fold. Historical: - Allergies: Amoxicillin; Erythromycin; PENICILLINS; SHELLFISH; - Home Meds: 1. Xarelto 15 mg oral tab daily (Last dose: 10/30/2016 08:00) 2. omeprazole 20 mg Oral cpDR 1 cap once daily (Last dose: 10/30/2016 08:00) 3. Risperdal 1 mg Oral tab 1 tab 2 times per day (Last dose: 10/30/2016 08:00) 4. fluoxetine 40 mg oral cap 1 cap once daily (Last dose: 10/30/2016 08:00) 5. montelukast 5 mg oral chew 1 tabs once daily (Last dose: 10/30/2016 08:00) 6. losartan 25 mg oral tab 1 tab once daily (Last dose: 10/30/2016 08:00) 7. Lantus 100 unit/mL Sub-Q soln 60 unit daily (Last dose: 10/29/2016) 8. Humalog 100 unit/mL Sub-Q crtg 5 unit three times a day 50 units this morning (Last dose: 10/30/2016 08:00) - PMHx: Bipolar disorder; Diabetes - NIDDM: controlled; DVT; CHF; Atrial Fib; - PSHx: Tonsillectomy; Aneurysm Repair, Brain; ; - Social history: Smoking status: Patient states was never smoker of tobacco. No barriers to communication noted, The patient speaks fluent Sami, Speaks appropriately for age. - Family history: Not pertinent. - : The pt / caregiver states he / she is on anticoagulants: Xarelto Home medication list is obtained from the patient. - Exposure Risk Screening:: None identified. Screenin:37 Screening information is obtained from the patient. Fall risk: No risks identified. dsf Assistance ADL's: requires no assistance with activities of daily living. Abuse/DV Screen: The patient / caregiver reports he/she is: not in a situation that causes fear, pain or injury. Nutritional screening: No deficits noted. Advance Directives: Currently, there is no health care proxy. home support is adequate. Assessment: 10:40 General: abscess to right lower abdominal fold draining blood and some yellow dsf discharge. Culture obtained and sent . 11:37 General: Appears in no apparent distress, Behavior is appropriate for age, cooperative. dsf Neurological: Level of Consciousness is awake, alert. Cardiovascular: Capillary refill < 3 seconds. Respiratory: Airway is patent Respiratory effort is even, unlabored, Respiratory pattern is regular, symmetrical. Derm: Skin is pink, warm & dry. Vital Signs: 09:53 BP 186 / 80; Pulse 86; Resp 18; Temp 98.5(O); Pulse Ox 98% on R/A; Weight 119.75 kg nb2 (R); Height 5 ft. 6 in. (167.64 cm) (R); Pain 0/10; 10:37 BP 198 / 96 RA Sitting (man/lg); Pulse 89; Resp 18; Temp 99.1(O); Pulse Ox 97% on R/A; kpj 11:10 BP 180 / 78; Pulse 72; Resp 18; Temp 97.6(T); Pulse Ox 98% on R/A; ar3 09:53 Body Mass Index 42.61 (119.75 kg, 167.64 cm) nb2 Vitals: 09:53 Log In Time: October 30, 2016 at 09:40. 2 ED Course: 09:53 Patient visited by Charissa Wade. nb2 09:53 Jason Vragas is Private Physician. nb2 09:53 Patient moved to Waiting nb2 09:57 Patient visited by Charissa Wade. nb2 09:57 Patient moved to Pre RCE nb2 09:59 Triage Initiated dsf 10:04 Vasiliy Beach PA-C is PHCP. ar2 10:04 Arturo Alfaro MD is Attending Physician. ar2 10:04 Patient visited by Vasiliy Beach PA-C. ar2 10:04 Patient moved to Triage 1 dsf 10:19 Jason Vargas is Referral Physician. ar2 10:40 Wound Culture & GS - All Other Sources Sent. ar3 10:44 Patient moved to PR dls 11:01 Patient visited by Blanca Jiménez RN. dsf 11:05 [facility] Payment Agreement was scanned into [employer] and attached to record. mm15 11:10 Patient visited by Dot Durant PCA. ar3 11:37 The patient / caregiver is instructed regarding the plan of care and ED course. dsf 11:37 No IV's were initiated during this patient's visit. No procedures done that require dsf assistance. 12:29 Patient name changed from Dorathia\S\\S\Mela\S\ to Dorathia\S\ \S\Mela. EDMS Order Results: Lab Order: Wound Culture & GS - All Other Sources; SPEC'M 10/30/16 10:40 Test: GRAM STAIN; Value: GRAM STAIN RESULT; Status: F Test: GRAM STAIN; Value: NO CELLS SEEN; Status: F Test: GRAM STAIN; Value: NO ORGANISMS SEEN; Status: F Test: WOUND CULTURE; Value: <EXTERNAL COMMENT eCWMed> FULL REPORT IN LAB NOTES (eCW and Medent).; Status: F Test: WOUND CULTURE; Value: ORGANISM 1: STAPHYLOCOCCUS AUREUS; Status: F Test: WOUND CULTURE; Value: STAPHYLOCOCCUS AUREUS; Status: F Test: WOUND CULTURE; Value: QUANTITY OF GROWTH HEAVY; Status: F Test: WOUND CULTURE; Value: GRAM POS SENSI - VITEK 67; Status: F Test: WOUND CULTURE; Value: Method: VIT2; Status: F Test: WOUND CULTURE; Value: TETRACYCLINE <=1 S; Status: F Test: WOUND CULTURE; Value: PENICILLIN G >=0.5 R; Status: F Test: WOUND CULTURE; Value: TRIMETHOPRIM/SULFAMETHOXAZOLE <=10 S; Status: F Test: WOUND CULTURE; Value: ERYTHROMYCIN >=8 R; Status: F Test: WOUND CULTURE; Value: GENTAMICIN <=0.5 S; Status: F Test: WOUND CULTURE; Value: CLINDAMYCIN <=0.25 S; Status: F Test: WOUND CULTURE; Value: OXACILLIN 0.5 S; Status: F Test: WOUND CULTURE; Value: VANCOMYCIN <=0.5 S; Status: F Test: WOUND CULTURE; Value: LINEZOLID (ZYVOX) 2 S; Status: F Outcome: 10:19 Discharge ordered by Provider. ar2 11:37 Discharge Assessment: Patient awake, alert and oriented x 3. No cognitive and/or dsf functional deficits noted. Patient verbalized understanding of disposition instructions. patient administered narcotics - no. The following High Risk Discharge criteria are identified: None. Discharged to home ambulatory. Condition: stable. Discharge instructions given to patient, Instructed on discharge instructions, follow up and referral plans. medication usage, Use of warm compresses to the affected area, Demonstrated understanding of instructions, medications, Pt was receptive of discharge instructions/ teaching. Prescriptions given X 1. No special radiology studies were completed. Property sent home with patient. 11:38 Patient left the ED. dsf Addendum: 11/02/2016 10:16 Narrative: Urine culture results reviewed with Dr. Dobbs and no change in treatment kcs needed. Signatures: Dispatcher [employer] Ashlee Hi RN RN Kirstin Clarke RN RN kpj Scott, Debra, RN RN dls Robertshaw, Aaron, PA-C PA-C ar2 Dot Durant PCA SECURE SOFTWARE ASSESSOR ar3 Blanca Jiménez RN RN dsf Uriel Calvillo mm15 Charissa Wade2 Chart Complete MTDD
== END 2016-10-30 11:38 | disposition home or self-care (01) ==
LOC: M ED 09:52
DX: L02.214 Cutaneous abscess of groin (principal); I10 Essential (primary) hypertension; F31.9 Bipolar disorder, unspecified; E11.9 Type 2 diabetes mellitus without complications; I50.9 Heart failure, unspecified; I48.91 Unspecified atrial fibrillation; Z86.73 Personal history of transient ischemic attack (TIA), and cerebral infarction without residual deficits; Z79.01 Long term (current) use of anticoagulants; Z79.4 Long term (current) use of insulin; Z79.899 Other long term (current) drug therapy; Z88.0 Allergy status to penicillin; Z88.1 Allergy status to other antibiotic agents; Z91.013 Allergy to seafood

== ENCOUNTER → 2016-11-02 | Outpatient (CLI) | payer MEDICARE ==
[~2016-11-02] MED LIST changes: +DOXY-278 PO
--- NOTE | 2016-11-02 11:47 | REP ---
RIGHT HIP: Three views of the right hip are performed. There is no evidence of acute fracture or dislocation. There are mild degenerative changes, with mild joint space narrowing, subchondral sclerosis, and spurring. IMPRESSION: Mild degenerative changes, right hip. Signed by Dany Downey MD 11/02/2016 03:54 P
--- NOTE | 2016-11-02 11:49 | REP ---
RIGHT FEMUR: AP and lateral views of the right femur are performed and demonstrate no evidence of acute fracture or dislocation. There are mild degenerative changes at the right hip as well as at the right knee joint with mild joint space narrowing, subchondral sclerosis and spurring. IMPRESSION: Mild degenerative changes right hip and knee joints. No other significant abnormal detected. Signed by Dany Downey MD 11/02/2016 03:54 P
== END ==
LOC: M LRY 10:15
PROVIDERS: ATTEND Family Medicine
DX: M25.551 Pain in right hip (principal)

== ENCOUNTER 2016-11-03 12:21 | Emergency (ER) | payer MEDICARE ==
[~2016-11-03] VITALS: Ht 167.6 cm; Wt 108.9 kg
[~2016-11-03 12:21] MED LIST changes: -DOXY-278 PO
[2016-11-03 12:22] VITALS: BP 224/90
[2016-11-03] MEDS ORDERED: INSULANT SC (12:52)
[2016-11-03] MEDS ORDERED: DOXY-278 PO (12:52)
[2016-11-03] MEDS ORDERED: ACETAMINOPHEN 325 MG/10.15 ML UDC PO ONE (14:15)
[2016-11-03] MEDS ORDERED: ACETAMINOPHEN SUSP 160 MG/5 ML UDC As Ordered ONE (14:32)
[2016-11-03] MEDS ORDERED: ACETAMINOPHEN SUSP 160 MG/5 ML UDC PO ONE (14:45)
[2016-11-03] MEDS ORDERED: NS 1,000 ML IV ONE (15:00)
--- NOTE | 2016-11-03 15:43 | REP ---
CT HEAD WITHOUT CONTRAST: HISTORY: Blurred vision left eye. The patient is status post right frontotemporal craniotomy. Aneurysm clip is present in the right sylvian fissure. There is dilatation of the sylvian fissure and cortical sulci of the anterior right temporal lobe. This represents encephalomalacia. There is no intraparenchymal hemorrhage, mass or midline shift. The ventricular system and cortical sulci as well as subarachnoid space in the posterior fossa are dilated consistent with minimal volume loss. There is no extracerebral collection. The visualized sinuses are clear. IMPRESSION: 1. Right temporal lobe encephalomalacia. 2. Minimal volume loss. Signed by Franck Hernandez MD 11/03/2016 03:47 P
[2016-11-03 15:48] LABS: VENOUS BASE EXCESS 2.1 (-2.0-2.0); VENOUS O2 SATURATION 85.2 % (60.0-80.0); VENOUS PARTIAL PRESSURE CO2 51.7 mmHg (38.0-50.0); VENOUS TOTAL CO2 30.1 MEQ/L (24.0-28.0)
[2016-11-03 15:49] LABS: BASO # 0.1 K/mm3 (0.0-0.2); BASO % 0.8 % (0.0-1.0); EOS # 0.2 K/mm3 (0.0-0.50); EOS % 2.3 % (0.0-3.0); LARGE UNSTAINED CELL # 0.2 K/mm3 (0.0-0.4); LARGE UNSTAINED CELL % 1.9 % (0.0-4.0); LYMPH # 2.5 K/mm3 (1.5-4.5); LYMPH % 22.1 % (24.0-44.0); MEAN CORPUSCULAR HEMOGLOBIN 30.2 pg (27.0-33.0); MEAN CORPUSCULAR HGB CONC 32.8 g/dl (32.0-36.5); MEAN CORPUSCULAR VOLUME 91.9 fl (80.0-96.0); MONO # 0.8 K/mm3 (0.0-0.8); MONO % 7.7 % (0.0-5.0); NEUTROPHILS # 6.6 K/mm3 (1.8-7.7); NEUTROPHILS % 65.2 % (36.0-66.0); PLATELET COUNT, AUTOMATED 319 k/mm3 (150-450); RED CELL DISTRIBUTION WIDTH 13.3 % (11.5-14.5); WHITE BLOOD COUNT 10.2 K/mm3 (4.0-10.0)
[2016-11-03 16:17] LABS: ALBUMIN 2.9 GM/DL (3.2-5.2); ALBUMIN/GLOBULIN RATIO 0.71 (1.00-1.93); ALKALINE PHOSPHATASE 170 U/L (45-117); ALT/SGPT 20 U/L (12-78); ANION GAP 11 MEQ/L (8-16); AST/SGOT 8 U/L (15-37); BILIRUBIN,DIRECT < 0.1 MG/DL (0.0-0.2); BILIRUBIN,TOTAL 0.3 MG/DL (0.2-1.0); BLOOD UREA NITROGEN 21 MG/DL (7-18); CALCIUM LEVEL 10.1 MG/DL (8.8-10.2); CARBON DIOXIDE LEVEL 28 MEQ/L (21-32); CHLORIDE LEVEL 98 MEQ/L (98-107); CREATININE FOR GFR 1.62 MG/DL (0.55-1.02); GLOMERULAR FILTRATION RATE 34.3 (>45); GLUCOSE, FASTING 218 MG/DL (80-110); POTASSIUM SERUM 4.1 MEQ/L (3.5-5.1); SODIUM LEVEL 137 MEQ/L (136-145)
[2016-11-03 16:29] LABS: OSMOLALITY SERUM 294 MOSM/KG (280-301)
--- NOTE | 2016-11-04 12:25 | ECGEPIP ---
Stationary ECG Study [facility] - ED Test Date: 2016-11-03 Pat Name: GAL COOMBS Department: Room: - Gender: F Ambulance Officer: abhinav : 1955 Requested By: BELINDA RUIZ PA-C. Order Number: [id number] Reading MD: Мария Wilburn Measurements Intervals [place] Rate: 84 P: 26 MO: 180 QRS: 12 QRSD: 101 T: 55 QT: 368 QTc: 437 Interpretive Statements SINUS RHYTHM SIMILAR 08/08/16 Electronically Signed On 11-04-2016 12:25:11 EST by Мария Wilburn
== END 2016-11-03 17:44 | disposition home or self-care (01) ==
LOC: M ED 15:51
DX: L03.314 Cellulitis of groin (principal); E11.65 Type 2 diabetes mellitus with hyperglycemia; E11.21 Type 2 diabetes mellitus with diabetic nephropathy; E11.22 Type 2 diabetes mellitus with diabetic chronic kidney disease; N18.9 Chronic kidney disease, unspecified; M32.9 Systemic lupus erythematosus, unspecified; F31.9 Bipolar disorder, unspecified; F41.9 Anxiety disorder, unspecified; L08.9 Local infection of the skin and subcutaneous tissue, unspecified; G47.9 Sleep disorder, unspecified; Z86.79 Personal history of other diseases of the circulatory system; Z79.899 Other long term (current) drug therapy; Z79.4 Long term (current) use of insulin; Z79.01 Long term (current) use of anticoagulants; Z88.0 Allergy status to penicillin; Z88.1 Allergy status to other antibiotic agents; Z91.013 Allergy to seafood

== ENCOUNTER → 2016-11-10 | Outpatient (CLI) | payer MEDICARE ==
[~2016-11-10] MED LIST changes: +DOXY-278 PO
--- NOTE | 2016-11-10 18:39 | REP ---
RIGHT FEMUR: REASON: Pain. COMPARISON: 11/02/2016 Today's examination shows no change from the prior examination. It should be stated that not all of the right femur was included on the three images of the right femur provided to review. Two lateral and one AP. IMPRESSION: Limited exam showing no fracture or significant change from the prior exam. Signed by Grant Koch DO 11/10/2016 07:04 P
--- NOTE | 2016-11-10 18:41 | REP ---
RIGHT HIP, TWO VIEWS: REASON: Pain. PRIORS: None. AP and frog lateral views of the right hip include the proximal femur to complete the right femur exam. Degenerative change is seen involving the hip. There is no acute fracture or dislocation. Signed by Grant Koch DO 11/10/2016 07:04 P
--- NOTE | 2016-11-10 18:42 | REP ---
RIGHT TIBIA FIBULA: REASON: Leg pain. No priors no trauma. The bones appear demineralized. There is no acute fracture or destructive osseous lesion. Degenerative changes are seen involving the knee and ankle. Signed by Grant Koch DO 11/10/2016 07:04 P
--- NOTE | 2016-11-13 12:42 | REP ---
REASON FOR EXAM: Pain. No priors for comparison. Five views of the right knee show tricompartmental marginal osteophytosis and tricompartmental narrowing, however, it should be stated that the examination was performed in a suboptimal fashion as the knee was not centered to the radiographic beam. This can cause exaggerated medial and lateral compartmental narrowing. There is no evidence of an acute fracture or dislocation. IMPRESSION: Chronic changes and limitations as described above. Signed by Grant Koch DO 11/13/2016 04:40 P
== END ==
LOC: M LRY 16:45
PROVIDERS: ATTEND Nurse Practitioner Family
DX: M79.604 Pain in right leg (principal)

== ENCOUNTER 2016-11-25 17:56 | Emergency (ER) | payer MEDICARE, MEDICAID ==
[~2016-11-25] VITALS: Ht 167.6 cm; Wt 127.0 kg
[2016-11-25] MEDS ORDERED: cloNIDine 0.2 MG TAB PO ONE (19:00)
[2016-11-25] MEDS ORDERED: traMADol 50 MG TAB PO ONE (19:15)
[2016-11-25] MEDS ORDERED: cloNIDine 0.1 MG TAB PO ONE (19:30)
[2016-11-25 19:43] VITALS: BP 184/84
[2016-11-25 20:11] LABS: BASO # 0.1 K/mm3 (0.0-0.2); BASO % 0.6 % (0.0-1.0); EOS # 0.4 K/mm3 (0.0-0.50); EOS % 4.1 % (0.0-3.0); LARGE UNSTAINED CELL # 0.2 K/mm3 (0.0-0.4); LARGE UNSTAINED CELL % 1.9 % (0.0-4.0); LYMPH % 22.1 % (24.0-44.0); MEAN CORPUSCULAR HEMOGLOBIN 29.1 pg (27.0-33.0); MEAN CORPUSCULAR HGB CONC 32.3 g/dl (32.0-36.5); MEAN CORPUSCULAR VOLUME 90.2 fl (80.0-96.0); MONO # 0.8 K/mm3 (0.0-0.8); MONO % 8.9 % (0.0-5.0); NEUTROPHILS # 5.5 K/mm3 (1.8-7.7); NEUTROPHILS % 62.5 % (36.0-66.0); PLATELET COUNT, AUTOMATED 319 k/mm3 (150-450); RED CELL DISTRIBUTION WIDTH 13.4 % (11.5-14.5); WHITE BLOOD COUNT 8.8 K/mm3 (4.0-10.0)
[2016-11-25 20:28] LABS: CALCIUM LEVEL 9.8 MG/DL (8.8-10.2); CREATININE FOR GFR 1.37 MG/DL (0.55-1.02); GLOMERULAR FILTRATION RATE 41.6 (>45); POTASSIUM SERUM 3.9 MEQ/L (3.5-5.1)
[2016-11-25 21:08] VITALS: BP 173/81
== END 2016-11-25 21:09 | disposition home or self-care (01) ==
LOC: M ED 19:11
DX: R04.0 Epistaxis (principal); E11.9 Type 2 diabetes mellitus without complications; D68.62 Lupus anticoagulant syndrome; F41.9 Anxiety disorder, unspecified; Z79.899 Other long term (current) drug therapy; Z79.4 Long term (current) use of insulin; Z79.01 Long term (current) use of anticoagulants; Z88.0 Allergy status to penicillin; Z88.1 Allergy status to other antibiotic agents; Z91.013 Allergy to seafood

== ENCOUNTER → 2016-12-06 | Outpatient (REF) | payer MEDICARE ==
[2016-12-06 11:22] LABS: MEAN CORPUSCULAR HEMOGLOBIN 28.8 pg (27.0-33.0); MEAN CORPUSCULAR HGB CONC 31.1 g/dl (32.0-36.5); MEAN CORPUSCULAR VOLUME 92.5 fl (80.0-96.0); RED CELL DISTRIBUTION WIDTH 13.5 % (11.5-14.5); WHITE BLOOD COUNT 7.5 K/mm3 (4.0-10.0)
[2016-12-06 12:03] LABS: ALBUMIN 3.3 GM/DL (3.2-5.2); ALBUMIN/GLOBULIN RATIO 0.89 (1.00-1.93); BILIRUBIN,TOTAL 0.4 MG/DL (0.2-1.0); CALCIUM LEVEL 10.2 MG/DL (8.8-10.2); CREATININE FOR GFR 1.49 MG/DL (0.55-1.02); GLOMERULAR FILTRATION RATE 37.7 (>45); POTASSIUM SERUM 4.2 MEQ/L (3.5-5.1)
== END ==
LOC: M SFHCLERA 08:45
PROVIDERS: ATTEND Family Medicine
DX: R04.0 Epistaxis (principal)

== ENCOUNTER 2017-01-18 04:22 | Inpatient (IN) | payer MEDICARE, MEDICAID ==
[~2017-01-18] VITALS: Ht 170.2 cm; Wt 118.3 kg
[2017-01-18] MEDS ORDERED: MORPHINE 2 MG/ML 1ML SYRINGE IV PRN (04:45)
[2017-01-18] MEDS ORDERED: ONDANSETRON 4MG/2ML VIAL (J2405) IV PRN (04:45)
[2017-01-18] MEDS ORDERED: GLUCOSE 4 GM CHEW TABLET PO PRN (04:45)
[2017-01-18] MEDS ORDERED: BISACODYL 5 MG TAB PO PRN (04:45)
[2017-01-18] MEDS ORDERED: DEXTROSE 50% 50 ML SYRINGE IV PRN (04:45)
[2017-01-18] MEDS ORDERED: GLUCAGON FOR INJ 1 MG VIAL (J1610) SC PRN (04:45)
[2017-01-18] MEDS ORDERED: PERCOCET 5MG/325MG TAB PO PRN (04:45)
[2017-01-18] MEDS ORDERED: MORPHINE 4 MG/ML 1ML SYRINGE IV ONE (05:00)
[2017-01-18] MEDS ORDERED: amLODIPine 5 MG TAB PO ONE ×2 (05:00→06:00)
--- NOTE | 2017-01-18 05:20 | REPUSA ---
CLINICAL HISTORY: Abdominal pain. TECHNIQUE: Realtime sonographic images were obtained in multiple projections. COMMENTS: The liver is of normal size, parenchyma demonstrates increased echogenicity. No discrete hepatic mass is seen. There is no intra or extrahepatic biliary ductal dilatation. CBD measures 5.4 mm. The gallbladder is physiologically distended without evidence of calculi. The gallbladder wall is not thickened measurin g 2.9 mm and there is no pericholecystic fluid. There is no abdominal ascites. The right kidney measures 11x4.1x4.5 cm, free of hydronephrosis. Echogenic foci are noted in the righ t kidney suggestive of calcified tiny nonobstructing stones versus vascular calcifications. IMPRESSION: Echogenic foci of the right kidney. Nonobstructing nephrolithiasis versus calcified vessels. Thank you for your kind referral of this patient.
[2017-01-18] MEDS: NS 1,000 ML IV SCH ×2 (05:34→14:36)
[2017-01-18] MEDS ORDERED: OMEP40CA2 PO (05:40)
[2017-01-18] MEDS ORDERED: LOSA50TA20 PO (05:40)
[2017-01-18] MEDS ORDERED: PREG25CA PO (05:40)
[2017-01-18] MEDS ORDERED: PROZ40CA PO (05:41)
[2017-01-18] MEDS: METOPROLOL TART 25 MG TABLET PO SCH ×3 (06:00→18:12)
[2017-01-18] MEDS ORDERED: PERCOCET 5MG/325MG TAB PO ONE (06:00)
[2017-01-18 06:12] LABS: MEAN CORPUSCULAR HEMOGLOBIN 29.6 pg (27.0-33.0); MEAN CORPUSCULAR HGB CONC 32.5 g/dl (32.0-36.5); MEAN CORPUSCULAR VOLUME 91.1 fl (80.0-96.0); PLATELET COUNT, AUTOMATED 235 k/mm3 (150-450); RED CELL DISTRIBUTION WIDTH 13.9 % (11.5-14.5); WHITE BLOOD COUNT 15.1 K/mm3 (4.0-10.0)
[2017-01-18 06:15] VITALS: BP 142/78
[2017-01-18 06:16] LABS: INR 1.73
--- NOTE | 2017-01-18 06:30 | ECGEPIP ---
Stationary ECG Study [facility] Test Date: 2017-01-18 Pat Name: GAL COOMBS Department: Room: - Gender: F Returned Item Clerk: DAVID : 1955 Requested By: YOUSUF Hackett Order Number: [id number] Reading MD: Anastacia Guerrero Measurements Intervals [place] Rate: 99 P: 9 TN: 173 QRS: 1 QRSD: 88 T: 34 QT: 338 QTc: 435 Interpretive Statements SINUS RHYTHM WITH OCCASIONAL SUPRAVENTRICULAR PREMATURE COMPLEXES [facility] C/W/11/17 Electronically Signed On 01-18-2017 6:30:18 EDT by Anastacia Guerrero
[2017-01-18 06:32] LABS: ERYTHROCYTE SEDIMENTATION RATE 47 mm/hr (0-30)
[2017-01-18 06:40] LABS: ALBUMIN 2.8 GM/DL (3.2-5.2); ALBUMIN/GLOBULIN RATIO 0.76 (1.00-1.93); ALT/SGPT 262 U/L (12-78); AMYLASE 1170 U/L (25-115); ANION GAP 10 MEQ/L (8-16); AST/SGOT 328 U/L (15-37); BILIRUBIN,TOTAL 3.8 MG/DL (0.2-1.0); BLOOD UREA NITROGEN 15 MG/DL (7-18); CALCIUM LEVEL 9.5 MG/DL (8.8-10.2); CARBON DIOXIDE LEVEL 25 MEQ/L (21-32); CHLORIDE LEVEL 98 MEQ/L (98-107); CHOLESTEROL LEVEL 136 MG/DL (<200); CREATININE FOR GFR 1.71 MG/DL (0.55-1.02); GLOMERULAR FILTRATION RATE 32.2 (>45); GLUCOSE, FASTING 385 MG/DL (80-110); MAGNESIUM LEVEL 2.1 MG/DL (1.8-2.4); POTASSIUM SERUM 4.6 MEQ/L (3.5-5.1); SODIUM LEVEL 133 MEQ/L (136-145); TOTAL PROTEIN 6.5 GM/DL (6.4-8.2); TRIGLYCERIDES LEVEL 115 MG/DL (<150)
[2017-01-18] MEDS ORDERED: LEVALBUTEROL 1.25 MG/0.5 ML CONCENTRATE NEB INH PRN (06:45)
[2017-01-18] MEDS ORDERED: LEVALBUTEROL 1.25 MG/0.5 ML CONCENTRATE NEB NEB ONE (06:45)
[2017-01-18] MEDS ORDERED: ALBUTEROL SULFATE 2.5 MG/0.5 ML INH NEB SOLN NEB PRN (06:45)
[2017-01-18 06:50] LABS: BANDS 2 % (< 11)
[2017-01-18 06:54] LABS: ALKALINE PHOSPHATASE 192 U/L (45-117)
[2017-01-18] MEDS ORDERED: HumaLOG INSULIN (NovoLOG) PER UNIT SC SCH ×2 (07:30→21:00)
[2017-01-18] MEDS ORDERED: ALBUTEROL SULFATE 2.5 MG/0.5 ML INH NEB SOLN NEB SCH (08:00)
--- NOTE | 2017-01-18 08:40 | REP ---
Clinical: Chest and abdominal pain . Comparison: 08/05/2016 . Technique: AP and lateral. Findings: The mediastinum and cardiac silhouette are normal. The lung cartwright are clear and without acute consolidation, effusion, or pneumothorax. The skeletal structures are intact and normal. Impression: 1. No acute cardiopulmonary process. Signed by Andrey Westfall MD 01/18/2017 08:31 A
--- NOTE | 2017-01-18 08:45 | REP ---
Clinical: Edema. Technique: Downey scale and color Doppler evaluation using linear high frequency transducer. Findings: Ultrasound examination of the right and left lower extremity deep venous structures from the common femoral vein to the popliteal vein demonstrates normal compressibility flow and wave patterns in response to respiration and augmentation. There is no evidence for deep venous thrombosis. Along the medial aspect of the left popliteal fossa is a complex fluid collection measuring 5.1 x 2.4 x 2.0 cm which may reflect complex Min's cyst. Along the lateral aspect of the right popliteal fossa is evidence for subcutaneous edema with two complex fluid collections measuring 1.9 x 0.7 x 1.0 cm and 1.1 x 0.5 x 0.6 cm. Incidental note is made of right groin lymph node measuring 2.1 x 0.6 x 1.2 cm along with partial duplication to the right mid superficial femoral vein. Impression: 1. No evidence for deep venous thrombosis. 2. Subcutaneous edema noted along with two ill-defined complex fluid collections in the right popliteal fossa and forming abscess/phlegmon cannot be excluded. 3. 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 Signed by Andrey Westfall MD 01/18/2017 08:37 A
[2017-01-18 08:47] VITALS: BP 155/86
[2017-01-18] MEDS: FLUoxetine 20 MG CAP PO SCH (09:53)
[2017-01-18] MEDS: PANTOPRAZOLE 40MG INJ (PROTONIX) (C9113) IV SCH (09:55)
[2017-01-18] MEDS: risperiDONE 1 MG TAB PO SCH ×2 (09:55→20:53)
[2017-01-18] MEDS: PREGABALIN 25 MG CAP (LYRICA) PO SCH ×2 (10:00→21:01)
[2017-01-18] MEDS: cloNIDine HCL 0.2 MG/24 HR PATCH TOP SCH (10:49)
--- NOTE | 2017-01-18 11:50 | REP ---
Ventilation-perfusion lung scan: History: Shortness of breath. History of DVT. Question pulmonary embolism. Comparison is made with today's chest x-ray. Technique: 1.0 mCi of technetium-99m DTPA is utilized as an aerosol for the ventilation study. This is followed by an intravenous injection of 5.5 mCi technetium 99m MAA for the perfusion study. Eight planar images are acquired for each of the two components of the exam. Scintigraphic findings: There is central bronchial deposition of inspired aerosol tracer bilaterally consistent with some degree of chronic obstructive airways disease. There is a perfusion defect visible on the RPO view in the right upper lobe distribution which is not matched by a corresponding ventilation defect. This is only seen on this single RPO view. No other perfusion defect is appreciated on the perfusion scan images. Impression: Single ventilation-perfusion mismatch in the periphery of the right upper lobe one view only. Otherwise negative perfusion scan. Low probability scan by revised PIOPED criteria. Signed by Matthew Lujan MD 01/18/2017 01:16 P
[2017-01-18 12:00] VITALS: BP 143/79
[2017-01-18] MEDS: HumaLOG INSULIN (NovoLOG) PER UNIT SC SCH ×2 (12:39→18:12)
--- NOTE | 2017-01-18 12:47 | ECGEPIP ---
Stationary ECG Study [facility] Test Date: 2017-01-18 Pat Name: GAL COOMBS Department: Room: [place] [address] Gender: F Director Of Procurement: AZAR : 1955 Requested By: YOUSUF Hackett Order Number: [id number] Reading MD: Anastacia Guerrero Measurements Intervals [place] Rate: 83 P: 18 HI: 189 QRS: 7 QRSD: 85 T: 32 QT: 356 QTc: 420 Interpretive Statements SINUS RHYTHM PACS ABSENT C/W 01/18/17 EARLIER Electronically Signed On 01-18-2017 12:47:45 EDT by Anastacia Guerrero
[2017-01-18 16:00] VITALS: BP 142/80
[2017-01-18 20:17] VITALS: BP 131/77
[2017-01-18] MEDS: MONTELUKAST 10 MG TAB PO SCH (20:53)
[2017-01-18] MEDS ORDERED: LEVEMIR (INSULIN DETEMIR) 1 UNITS/0.01ML SC SCH (21:00)
[2017-01-18] MEDS: SODIUM CHLORIDE NASAL 0.65% SPRAY BTL (OCEAN) SCH (21:01)
--- NOTE | 2017-01-18 22:24 | HPE ---
DATE OF ADMISSION: 01/18/2017 PRIMARY CARE PHYSICIAN: Dr. Jason Vargas MD. CHIEF COMPLAINT: Epigastric abdominal pain. HISTORY OF PRESENT ILLNESS: This is a 61-year-old female with history of type 2 diabetes, right lower extremity deep venous thrombosis (DVT), brain aneurysm with clipping 2012, bipolar disorder, manic depressive disorder, lupus, questionable chronic obstructive pulmonary disease (COPD), congestive heart failure (CHF), panic attacks, reflux disease, atrial fibrillation, right ankle fracture with rehabilitation 2016, on chronic Xarelto, presents to [facility] Emergency Room brought in by family with a four-hour history of midepigastric abdominal pain while watching television, accompanied with several episodes of nonbilious, nonprojectile vomiting, persistent nausea. The patient denies any radiation to the back. Rates this as 10 with no exacerbating or ameliorating factors. Denies any fevers, chills or any prior episode. Evaluation included CT abdomen and pelvis which showed minimal pancreatitis. No calcified gallstones. White count was normal. Urinalysis was unremarkable for urinary tract infection (UTI). Lipase level was 21,000 with total bilirubin of 2.0, AST 472, ALT of 210. She was given intravenous morphine, gastrointestinal (GI) cocktail and Zofran and was transferred from [facility] Room to [facility] for pancreatitis and possible GI consultation. The patient otherwise denied any chest pain, pressure, tightness, palpitations, lightheadedness. Decreased appetite due to severe pain and persistent nausea and vomiting. No weight loss or weight gain. No fever or chills. Denies diarrhea, constipation, dysuria, urgency, frequency. Hospitalist service was called for admission for pancreatitis. Further evaluation with ultrasound of the gallbladder. PAST MEDICAL HISTORY: 1. Atrial fibrillation. 2. DVT right lower extremity. 3. Bipolar disorder. 4. Type 2 diabetes. 5. Brain aneurysm 2013, with clipping. 6. Manic depressive disorder. 7. Lupus. 8. Questionable COPD. 9. CHF. 10. Panic attacks. 11. Reflux. 12. Hypertension. 13. Chronic pain. 14. Chronic kidney disease stage III, baseline creatinine of 1.3 to 1.6. PAST SURGICAL HISTORY: 1. Brain aneurysm clipping 2012. 2. Tonsillectomy age 25. 3. Bartholin cyst removal. 4. Tubal ligation. HOME MEDICATIONS: - Lantus insulin 60 units at bedtime - Senokot Plus 8.6/50 one tablet at bedtime as needed - Tylenol 1 gram as needed every six - Flonase one spray daily - omeprazole 40 mg daily - fexofenadine 180 mg daily - fluoxetine 20 mg every morning - Risperdal one tablet twice a day 1 mg - Prozac 40 mg every morning - Xarelto 15 mg daily - montelukast 5 mg at bedtime - losartan 50 mg daily - Lyrica 25 mg twice a day ALLERGIES: 1. PENICILLINS 2. AMOXICILLIN 3. ERYTHROMYCIN 4. SHELLFISH-DERIVED PRODUCTS SOCIAL HISTORY: Denies alcohol or drug use. Never smoked. Resides with her daughter, grandchild, and son-in-law. Retired. Uses two cups of caffeinated beverages. Ninth grade education. Lives in her daughter's home. FAMILY HISTORY: Denies. REVIEW OF SYSTEMS: 12-point system negative aside from positive findings in history of present illness. PHYSICAL EXAMINATION: VITAL SIGNS: Temperature 99.7, pulse 100, respiratory rate 22, blood pressure 177/77, 94% on two liters nasal cannula. GENERAL: She is awake, alert, and oriented times three. HEENT: Extraocular muscles intact. NECK: Appears to be no jugular venous distention, no thyromegaly, no cervical lymphadenopathy. Neck is supple. Full range of motion. HEART: S1, S2. Sinus rhythm. No murmurs, rubs, or gallops. LUNGS: Clear to auscultation. No wheezes, rales, or rhonchi. ABDOMEN: Positive bowel sounds. Soft. Tender in the mid-epigastric area. No rebound, guarding. Negative Alejandre sign. No hepatomegaly. BACK: No costovertebral angle tenderness. EXTREMITIES: No cyanosis or clubbing. IMAGING: EKG at [facility] January 17, 2017, at 1942: No acute ischemia. Sinus rhythm. Ventricular rate of 93. Normal P axis. Normal QRS complex. Chest x-ray at [facility]: No acute disease, but slightly widened mediastinum. Normal lung markings. Normal heart size. No infiltrate, no fracture , no bony lesions. CT abdomen and pelvis at [facility] without intravenous (IV) contrast: Unremarkable liver. Slight motion artifact in the upper abdomen and margins of the gallbladder are somewhat indistinct. No calcified stones. No ductal dilatation. Slight induration around the pancreatic head. Fat around the pancreatic body and tail is within normal. No ductal dilatation. Unremarkable spleen. No splenomegaly. Unremarkable adrenals, kidneys and ureters. No obstructing stones or hydronephrosis. No obstruction in the stomach and bowel with no mucosal thickening. Normal appendix. Bladder unremarkable with no stones. Facet arthropathy of the lower lumbar spine. No acute fracture or dislocation. Minimal fat-filled umbilical hernia. No abdominal aortic aneurysm. No enlarged lymph nodes. Otherwise negative CT abdomen and pelvis with slight peripancreatic induration about the head consistent with minimal pancreatitis. Indistinct margination of the gallbladder attributed to some motion artifact. However, pericholecystic edema and cholecystitis is not excluded. LABORATORY DATA: From [facility] Emergency Room: Urinalysis hazy, dark, yellow. Specific gravity 1.01, leukocyte esterase trace, negative nitrite, pH of 7.5, negative protein, 4+ glucose, negative ketones, normal urobilinogen, negative bilirubin, trace blood, 1-3 RBC, 1-3 WBC, 3+ epithelial cells. No crystals, 1+ bacteria. No mucus. White count 8.3, hemoglobin 13, hematocrit 42, platelet count 214. 92% neutrophils. INR 1.15, PT 11.3, PTT 22.1. Sodium 138, potassium 4.3, chloride 99, bicarbonate 28, BUN 14, creatinine 1.6, glucose 267, total bilirubin 2.0, total protein of 7.1, albumin 3.5, AST 472, ALT 210, alkaline phosphatase 242. Magnesium 1.3. Troponin less than 0.017. Lipase 21,164. ASSESSMENT AND PLAN: This is a 61-year-old female with of right lower extremity deep venous thrombosis, atrial fibrillation on chronic Xarelto, type 2 diabetes, brain aneurysm in 2013, with clipping, bipolar disorder, manic depressive, lupus, questionable chronic obstructive pulmonary disease, no prior history of smoking, congestive heart failure, panic attacks, reflux with allergies to PENICILLIN, AMOXICILLIN, ERYTHROMYCIN, AND SHELL FISH causing nausea, vomiting, tonsillectomy, chronic pain, who presents to [facility] Emergency Room with four-hour of midepigastric pain with no radiation, found to have a lipase level of 21,164. CT abdomen and pelvis showed minimal pancreatitis. The patient was transferred to [facility] for further management and evaluation. She will be admitted as an inpatient to [facility] as an inpatient for two midnights for the following issues: 1. Acute acalculous cholecystitis. The patient will be kept nothing by mouth with intravenous fluids. Pain control with intravenous (IV) morphine, oral Percocet. Obtain ultrasound of the gallbladder to rule out obstructive stones. No empiric antibiotics since the patient is afebrile with no white count. Surgical consultation if positive gallstones or if the patient worsens clinically with fevers, increasing pain, and worsening leukocytosis. 2. History of atrial fibrillation, currently sinus rhythm on chronic Xarelto. No rate control medication on the home medication list. Will monitor for now. Will hold the patient's Xarelto for now, awaiting results of the ultrasound for possible surgical intervention should gallstones be noted. 3. Hypertension uncontrolled secondary to pain. Due to worsening creatinine, we will hold on patient's angiotension-converting enzyme (HENRI) inhibitor losartan. Will give Norvasc, hydralazine and nitrates if needed. If pulse permits, may start on low-dose beta blockade. 4. History of right lower extremity deep venous thrombosis (DVT), on chronic Xarelto which will be held for now due to possibility of surgical intervention should the ultrasound show gallstones. 5. Type 2 diabetes. Nothing by mouth status due to pancreatitis. Sliding scale insulin, hyperglycemic protocol. 6. Bipolar disorder. Continue on fluoxetine. 7. Reflux. Continue on IV Protonix. 8. DVT prophylaxis with compression stockings. 9. Low magnesium. Replete if needed. The patient will be signed out to [facility], Dr. Zuly Nagel, at 7 a.m. on 01/18/2017. DIRK
[2017-01-19] VITALS (7 sets, daily range): BP systolic 134–169; BP diastolic 60–89
[2017-01-19] MEDS: METOPROLOL TART 25 MG TABLET PO SCH ×3 (00:14→13:01)
[2017-01-19] MEDS: HumaLOG INSULIN (NovoLOG) PER UNIT SC SCH ×5 (00:17→22:19)
[2017-01-19 05:19] LABS: BASO % 0.3 % (0.0-1.0); EOS # 0.3 K/mm3 (0.0-0.50); EOS % 3.2 % (0.0-3.0); LARGE UNSTAINED CELL # 0.1 K/mm3 (0.0-0.4); LARGE UNSTAINED CELL % 1.4 % (0.0-4.0); LYMPH # 1.1 K/mm3 (1.5-4.5); LYMPH % 12.3 % (24.0-44.0); MEAN CORPUSCULAR HEMOGLOBIN 29.3 pg (27.0-33.0); MEAN CORPUSCULAR HGB CONC 31.6 g/dl (32.0-36.5); MEAN CORPUSCULAR VOLUME 92.8 fl (80.0-96.0); MONO # 0.7 K/mm3 (0.0-0.8); MONO % 7.8 % (0.0-5.0); NEUTROPHILS # 6.8 K/mm3 (1.8-7.7); NEUTROPHILS % 75.1 % (36.0-66.0); PLATELET COUNT, AUTOMATED 207 k/mm3 (150-450); RED CELL DISTRIBUTION WIDTH 13.9 % (11.5-14.5)
[2017-01-19 05:49] LABS: ALBUMIN 2.3 GM/DL (3.2-5.2); ALBUMIN/GLOBULIN RATIO 0.59 (1.00-1.93); BILIRUBIN,TOTAL 2.8 MG/DL (0.2-1.0); CALCIUM LEVEL 9.1 MG/DL (8.8-10.2); CREATININE FOR GFR 1.5 MG/DL (0.55-1.02); GLOMERULAR FILTRATION RATE 37.5 (>45); POTASSIUM SERUM 4.4 MEQ/L (3.5-5.1); TOTAL PROTEIN 6.2 GM/DL (6.4-8.2)
[2017-01-19] MEDS: PREGABALIN 25 MG CAP (LYRICA) PO SCH ×3 (09:00→22:18)
[2017-01-19] MEDS: NYSTATIN 100,000 UNITS/GM TOPICAL PWD 15 GM TOP SCH ×2 (09:00→09:04)
[2017-01-19] MEDS: risperiDONE 1 MG TAB PO SCH ×2 (09:02→22:18)
[2017-01-19] MEDS: FLUoxetine 20 MG CAP PO SCH (09:03)
[2017-01-19] MEDS: RIVAROXABAN 15 MG TAB (XARELTO) PO SCH (09:03)
[2017-01-19] MEDS: amLODIPine 10 MG TAB PO SCH (09:04)
[2017-01-19] MEDS: SODIUM CHLORIDE NASAL 0.65% SPRAY BTL (OCEAN) SCH ×2 (09:04→22:20)
[2017-01-19] MEDS: PANTOPRAZOLE 40MG INJ (PROTONIX) (C9113) IV SCH (09:04)
[2017-01-19] MEDS ORDERED: GLUCOSE 4 GM CHEW TABLET PO PRN (11:30)
[2017-01-19] MEDS ORDERED: GLUCAGON FOR INJ 1 MG VIAL (J1610) SC PRN (11:30)
[2017-01-19] MEDS ORDERED: DEXTROSE 50% 50 ML SYRINGE IV PRN (11:30)
[2017-01-19] MEDS: ACETAMINOPHEN TAB 650MG DOSE (2X325MG) PO PRN (12:57)
--- NOTE | 2017-01-19 15:24 | IPNPDOC ---
Subjective Date Seen The patient was seen on 01/19/17. Subjective Chief Complaint/HPI The patient is a 61-year-old female admitted with a reason for visit of Acute Pancreatitis. General: Denies: Chills, Night Sweats Constitutional: Denies: Chills, Fever Eyes: Denies: Pain, Vision change ENT: Denies: Head Aches, Ear Pain Skin: Denies: Rash, Lesions Pulmonary: Denies: Dyspnea Cardiovascular: Denies: Chest Pain, Palpitations Gastrointestinal: Denies: Nausea, Vomiting Genitourinary: Denies: Dysuria, Frequency Hematologic: Denies: Bruising, Bleeding Excessively Objective Physical Examination General Exam: Positive: Alert, Cooperative, No Acute Distress, Other (Morbidly obese) ENT Exam: Positive: Atraumatic, Mucous membr. moist/pink Neck Exam: Negative: JVD Chest Exam: Positive: Clear to auscultation, Normal air movement Heart Exam: Positive: Rate Normal, Normal S1, Normal S2 Abdomen Exam: Positive: Soft, Negative: Tenderness Extremity Exam: Negative: Tenderness, Swelling Assessment /Plan Plan/VTE VTE Prophylaxis Ordered?: Yes Plan/Urinary Catheter Reason for insertion/continuin: Critical Pt monitoring Plan Acute Pancreatitis Ultrasound of the gallbladder negative for any gallstones, or signs of cholecystitis Status post IV fluid hydration Patient advanced to carbohydrate consistent diet today Patient states that abdominal pain has resolved We will continue to monitor the patient's status Lactic acidosis likely 2/2 above, resolved Status was IV fluid hydration Chronic kidney disease stage III Serum creatinine appears to be at baseline History of atrial fibrillation Rate controlled Continue Xarelto Transaminitis Likely secondary to fatty liver as noted on ultrasound We will continue to monitor Mild to moderate pulmonary hypertension likely secondary to obesity 2-D echocardiogram 08/2016 noted NAKUL protocol Hypertension, controlled Continue current regimen History of right lower extremity deep venous thrombosis (DVT) Continue Xarelto Type 2 diabetes Continue Levemir, insulin sliding scale Bipolar disorder Continue fluoxetine. Reflux Continue Protonix DVT prophylaxis Already on Xarelto Disposition-patient's diet advanced today, we will monitor her progression. PT evaluation ordered. VS, I&O, 24H, Fishbone Vital Signs/I&O Vital Signs Date Time Temp Pulse Resp B/P (MAP) Pulse Ox O2 Delivery O2 Flow Rate FiO2 01/19/17 13:02 97.2 72 20 139/74 (95) 95 Room Air 01/19/17 06:47 2.0 I&O- Last 24 Hours up to 6 AM 01/19/17 06:00 Intake Total 300 ml Output Total 925 ml Balance -625 ml Laboratory Data 24H LABS Laboratory Tests 2 01/18/17 15:54: Lactic Acid Followup at 4 Hours 1.9 01/18/17 16:09: Bedside Glucose (Misc Panel) 239H 01/18/17 18:03: Bedside Glucose (Misc Panel) 227H 01/18/17 20:41: Bedside Glucose (Misc Panel) 216H 01/19/17 00:13: Bedside Glucose (Misc Panel) 166H 01/19/17 00:22: Urine Appearance HAZY, Urine Color CRISSY, Urine pH 5.0, Urine Specific [place] 1.018, Urine Protein 1+H, Urine Glucose (UA) NEGATIVE, Urine Ketones NEGATIVE, Urine Urobilinogen 2.0H, Urine Bilirubin 1+H, Urine Leukocyte Esterase NEGATIVE , Urine Blood 3+H, Urine Nitrite NEGATIVE, Urine WBC (Auto) 15H, Urine RBC (Auto ) TNTCH, Urine Hyaline Casts (Auto) 0, Urine Bacteria (Auto) NEGATIVE, Urine Squamous Epithelial Cells 1, Urine Amorphous Sediment SMALLH, Urine Mucus (Auto ) SMALL, Urine Sperm (Auto) 01/19/17 04:41: White Blood Count 9.0, Red Blood Count 3.93L, Hemoglobin 11.5L, Hematocrit 36.5 , Mean Corpuscular Volume 92.8, Mean Corpuscular Hemoglobin 29.3, Mean Corpuscular Hemoglobin Concent 31.6L, Red Cell Distribution Width 13.9, Platelet Count 207, Neutrophils (%) (Auto) 75.1H, Lymphocytes (%) (Auto) 12.3L, Monocytes (%) (Auto) 7.8H, Eosinophils (%) (Auto) 3.2H, Basophils (%) (Auto) 0.3 , Neutrophils # (Auto) 6.8, Lymphocytes # (Auto) 1.1L, Monocytes # (Auto) 0.7, Eosinophils # (Auto) 0.3, Basophils # (Auto) 0.0, Large Unclassified Cells % 1.4 , Large Unclassified Cells # 0.1, Anion Gap 6L, Glomerular Filtration Rate 37.5L , Blood Urea Nitrogen 19H, Creatinine 1.50H, Sodium Level 135L, Potassium Level 4.4, Chloride Level 102, Carbon Dioxide Level 27, Calcium Level 9.1, Aspartate Amino Transf (AST/SGOT) 108H, Alanine Aminotransferase (ALT/SGPT) 153H, Alkaline Phosphatase 178H, Total Bilirubin 2.8H, Total Protein 6.2L, Albumin 2.3L, Albumin/Globulin Ratio 0.59L, Amylase Level 294H, Lipase 3995H 01/19/17 05:10: Bedside Glucose (Misc Panel) 122H CBC/BMP Laboratory Tests 01/19/17 04:41 Red Blood Count 3.93 L, Mean Corpuscular Volume 92.8, Mean Corpuscular Hemoglobin 29.3, Mean Corpuscular Hemoglobin Concent 31.6 L, Red Cell Distribution Width 13.9, Neutrophils (%) (Auto) 75.1 H, Lymphocytes (%) (Auto) 12.3 L, Monocytes (%) (Auto) 7.8 H, Eosinophils (%) (Auto) 3.2 H, Basophils (%) (Auto) 0.3, Neutrophils # (Auto) 6.8, Lymphocytes # (Auto) 1.1 L, Monocytes # ( Auto) 0.7, Eosinophils # (Auto) 0.3, Basophils # (Auto) 0.0, Calcium Level 9.1, Aspartate Amino Transf (AST/SGOT) 108 H, Alanine Aminotransferase (ALT/SGPT) 153 H, Alkaline Phosphatase 178 H, Total Bilirubin 2.8 H, Total Protein 6.2 L, Albumin 2.3 L Microbiology Microbiology 01/18/17 Blood Culture - Preliminary, Resulted No growth after 24 hours . All specim... 01/19/17 Urine Culture, Received Pending MICHAEL STEWART MD January 19, 2017 15:24
[2017-01-19] MEDS ORDERED: LEVEMIR (INSULIN DETEMIR) 1 UNITS/0.01ML SC SCH (21:00)
[2017-01-19] MEDS: MONTELUKAST 10 MG TAB PO SCH (22:18)
[2017-01-20 06:00] VITALS: BP 161/83
[2017-01-20] MEDS: HumaLOG INSULIN (NovoLOG) PER UNIT SC SCH ×4 (07:30→22:23)
[2017-01-20] MEDS: RIVAROXABAN 15 MG TAB (XARELTO) PO SCH (09:18)
[2017-01-20] MEDS: risperiDONE 1 MG TAB PO SCH ×2 (09:18→22:24)
[2017-01-20] MEDS: PREGABALIN 25 MG CAP (LYRICA) PO SCH ×2 (09:18→22:24)
[2017-01-20 09:42] LABS: MEAN CORPUSCULAR HEMOGLOBIN 29.3 pg (27.0-33.0); MEAN CORPUSCULAR HGB CONC 32.3 g/dl (32.0-36.5); MEAN CORPUSCULAR VOLUME 90.7 fl (80.0-96.0); RED CELL DISTRIBUTION WIDTH 13.8 % (11.5-14.5); WHITE BLOOD COUNT 6.6 K/mm3 (4.0-10.0)
[2017-01-20 09:55] LABS: ALBUMIN 2.4 GM/DL (3.2-5.2); ALBUMIN/GLOBULIN RATIO 0.69 (1.00-1.93); BILIRUBIN,TOTAL 2.3 MG/DL (0.2-1.0); CALCIUM LEVEL 9.4 MG/DL (8.8-10.2); CREATININE FOR GFR 1.36 MG/DL (0.55-1.02); GLOMERULAR FILTRATION RATE 41.9 (>45); POTASSIUM SERUM 4.4 MEQ/L (3.5-5.1); TOTAL PROTEIN 5.9 GM/DL (6.4-8.2)
[2017-01-20] MEDS: amLODIPine 10 MG TAB PO SCH (12:11)
[2017-01-20] MEDS: PANTOPRAZOLE 40MG TAB (PROTONIX) PO SCH (12:11)
[2017-01-20] MEDS: FLUoxetine 20 MG CAP PO SCH (12:11)
[2017-01-20] MEDS: SODIUM CHLORIDE NASAL 0.65% SPRAY BTL (OCEAN) SCH ×2 (12:12→22:24)
[2017-01-20] MEDS: NYSTATIN 100,000 UNITS/GM TOPICAL PWD 15 GM TOP SCH (12:13)
--- NOTE | 2017-01-20 14:18 | IPNPDOC ---
Subjective Date Seen The patient was seen on 01/20/17. Subjective Chief Complaint/HPI The patient is a 61-year-old female admitted with a reason for visit of Acute Pancreatitis. General: Denies: Chills, Night Sweats Constitutional: Denies: Chills, Fever Eyes: Denies: Pain, Vision change ENT: Denies: Head Aches, Ear Pain Skin: Denies: Rash, Lesions Pulmonary: Denies: Dyspnea, Cough Cardiovascular: Denies: Chest Pain, Palpitations Gastrointestinal: Denies: Nausea, Vomiting Genitourinary: Denies: Dysuria, Frequency Hematologic: Denies: Bruising, Bleeding Excessively Objective Physical Examination General Exam: Positive: Alert, Cooperative, No Acute Distress, Other (Morbidly obese) ENT Exam: Positive: Atraumatic, Mucous membr. moist/pink Neck Exam: Negative: JVD Chest Exam: Positive: Clear to auscultation, Normal air movement Heart Exam: Positive: Rate Normal, Normal S1, Normal S2 Abdomen Exam: Positive: Soft, Negative: Tenderness Extremity Exam: Negative: Tenderness, Swelling Assessment /Plan Plan/VTE VTE Prophylaxis Ordered?: Yes Plan/Urinary Catheter Reason for insertion/continuin: Critical Pt monitoring Plan Acute Pancreatitis Ultrasound of the gallbladder negative for any gallstones, or signs of cholecystitis Status post IV fluid hydration Patient tolerating PO diet without any complaints Patient's LFTs trending downward We will continue to monitor the patient's status Lactic acidosis likely 2/2 above, resolved Status was IV fluid hydration Chronic kidney disease stage III Serum creatinine appears to be at baseline History of atrial fibrillation Rate controlled Continue Xarelto Transaminitis Trending downward Likely secondary to fatty liver as noted on ultrasound We will continue to monitor Mild to moderate pulmonary hypertension likely secondary to obesity 2-D echocardiogram 08/2016 noted NAKUL protocol Hypertension, controlled Continue current regimen History of right lower extremity deep venous thrombosis (DVT) Continue Xarelto Type 2 diabetes Continue Levemir, insulin sliding scale Bipolar disorder Continue fluoxetine. Reflux Continue Protonix DVT prophylaxis Already on Xarelto Disposition-Patient tolerating diet well. Physical Therapy Optimization. Anticipate D/C in the next 24-48 hrs VS, I&O, 24H, Fishbone Vital Signs/I&O Vital Signs Date Time Temp Pulse Resp B/P (MAP) Pulse Ox O2 Delivery O2 Flow Rate FiO2 01/20/17 12:11 70 161/83 01/20/17 06:00 98.0 20 97 Room Air 01/19/17 06:47 2.0 I&O- Last 24 Hours up to 6 AM 01/20/17 06:00 Intake Total 1620 ml Output Total 3525 ml Balance -1905 ml Laboratory Data 24H LABS Laboratory Tests 2 01/19/17 17:09: Bedside Glucose (Misc Panel) 244H 01/19/17 17:47: Bedside Glucose (Misc Panel) 276H 01/19/17 20:34: Bedside Glucose (Misc Panel) 291H 01/20/17 06:10: Bedside Glucose (Misc Panel) 266H 01/20/17 09:15: Anion Gap 8, Glomerular Filtration Rate 41.9L, Blood Urea Nitrogen 18, Creatinine 1.36H, Sodium Level 134L, Potassium Level 4.4, Chloride Level 100, Carbon Dioxide Level 26, Calcium Level 9.4, Aspartate Amino Transf (AST/SGOT) 51H, Alanine Aminotransferase (ALT/SGPT) 112H, Alkaline Phosphatase 328H, Total Bilirubin 2.3H, Total Protein 5.9L, Albumin 2.4L, Albumin/Globulin Ratio 0.69L 01/20/17 11:34: Bedside Glucose (Misc Panel) 217H CBC/BMP Laboratory Tests 01/20/17 09:15 Red Blood Count 4.00, Mean Corpuscular Volume 90.7, Mean Corpuscular Hemoglobin 29.3, Mean Corpuscular Hemoglobin Concent 32.3, Red Cell Distribution Width 13.8 , Calcium Level 9.4, Aspartate Amino Transf (AST/SGOT) 51 H, Alanine Aminotransferase (ALT/SGPT) 112 H, Alkaline Phosphatase 328 H, Total Bilirubin 2.3 H, Total Protein 5.9 L, Albumin 2.4 L Microbiology Microbiology 01/18/17 Blood Culture - Preliminary, Resulted No Growth after 48 hours. All Specime... 01/19/17 Urine Culture - Final, Complete MICHAEL STEWART MD January 20, 2017 14:18
[2017-01-20 22:00] VITALS: BP 161/79
[2017-01-20] MEDS: LEVEMIR (INSULIN DETEMIR) 1 UNITS/0.01ML SC SCH (22:24)
[2017-01-20] MEDS: MONTELUKAST 10 MG TAB PO SCH (22:24)
[2017-01-21 06:00] VITALS: BP 144/83
[2017-01-21 06:44] LABS: MEAN CORPUSCULAR HEMOGLOBIN 29.5 pg (27.0-33.0); MEAN CORPUSCULAR HGB CONC 32.8 g/dl (32.0-36.5); MEAN CORPUSCULAR VOLUME 89.8 fl (80.0-96.0); RED CELL DISTRIBUTION WIDTH 13.9 % (11.5-14.5); WHITE BLOOD COUNT 5.2 K/mm3 (4.0-10.0)
[2017-01-21 07:00] LABS: ALBUMIN 2.2 GM/DL (3.2-5.2); ALBUMIN/GLOBULIN RATIO 0.63 (1.00-1.93); BILIRUBIN,TOTAL 1.6 MG/DL (0.2-1.0); CALCIUM LEVEL 9.1 MG/DL (8.8-10.2); CREATININE FOR GFR 1.21 MG/DL (0.55-1.02); POTASSIUM SERUM 3.9 MEQ/L (3.5-5.1); TOTAL PROTEIN 5.7 GM/DL (6.4-8.2)
[2017-01-21] MEDS: cloNIDine HCL 0.2 MG/24 HR PATCH TOP SCH (08:28)
[2017-01-21] MEDS: FLUoxetine 20 MG CAP PO SCH (08:28)
[2017-01-21] MEDS: SODIUM CHLORIDE NASAL 0.65% SPRAY BTL (OCEAN) SCH ×2 (08:29→23:20)
[2017-01-21] MEDS: PREGABALIN 25 MG CAP (LYRICA) PO SCH ×2 (08:29→23:19)
[2017-01-21] MEDS: amLODIPine 10 MG TAB PO SCH (08:29)
[2017-01-21] MEDS: risperiDONE 1 MG TAB PO SCH ×2 (08:29→23:19)
[2017-01-21] MEDS: RIVAROXABAN 15 MG TAB (XARELTO) PO SCH (08:29)
[2017-01-21] MEDS: PANTOPRAZOLE 40MG TAB (PROTONIX) PO SCH (08:29)
[2017-01-21] MEDS: HumaLOG INSULIN (NovoLOG) PER UNIT SC SCH ×4 (08:30→23:20)
[2017-01-21] MEDS: NYSTATIN 100,000 UNITS/GM TOPICAL PWD 15 GM TOP SCH (08:30)
[2017-01-21 14:00] VITALS: BP 182/79
--- NOTE | 2017-01-21 15:25 | IPNPDOC ---
Subjective Date Seen The patient was seen on 01/21/17. Subjective Chief Complaint/HPI The patient is a 61-year-old female admitted with a reason for visit of Acute Pancreatitis. General: Denies: Chills, Night Sweats Constitutional: Denies: Chills, Fever Eyes: Denies: Pain, Vision change ENT: Denies: Head Aches, Ear Pain Skin: Denies: Rash, Lesions Pulmonary: Denies: Dyspnea, Cough Cardiovascular: Denies: Chest Pain, Palpitations Gastrointestinal: Denies: Nausea, Vomiting, Abdominal Pain Genitourinary: Denies: Dysuria, Frequency Hematologic: Denies: Bruising, Bleeding Excessively Objective Physical Examination General Exam: Positive: Alert, Cooperative, No Acute Distress, Other (Morbidly obese) ENT Exam: Positive: Atraumatic, Mucous membr. moist/pink Neck Exam: Negative: JVD Chest Exam: Positive: Clear to auscultation, Normal air movement Heart Exam: Positive: Rate Normal, Normal S1, Normal S2 Abdomen Exam: Positive: Soft, Negative: Tenderness Extremity Exam: Negative: Tenderness, Swelling Assessment /Plan Plan/VTE VTE Prophylaxis Ordered?: Yes Plan/Urinary Catheter Reason for insertion/continuin: Critical Pt monitoring Plan Acute Pancreatitis Ultrasound of the gallbladder negative for any gallstones, or signs of cholecystitis or choledocholithiasis Status post IV fluid hydration Patient tolerating PO diet without any complaints Patient's LFTs trending downward We will continue to monitor the patient's status Lactic acidosis likely 2/2 above, resolved Status was IV fluid hydration Chronic kidney disease stage III Serum creatinine appears to be at baseline History of atrial fibrillation Rate controlled Continue Xarelto Transaminitis Trending downward Likely secondary to fatty liver as noted on ultrasound We will continue to monitor Mild to moderate pulmonary hypertension likely secondary to obesity 2-D echocardiogram 08/2016 noted NAKUL protocol Hypertension, controlled Continue current regimen History of right lower extremity deep venous thrombosis (DVT) Continue Xarelto Type 2 diabetes Continue Levemir, insulin sliding scale Bipolar disorder Continue fluoxetine. Reflux Continue Protonix DVT prophylaxis Already on Xarelto Disposition-Patient tolerating diet well. Physical Therapy Optimization. Anticipate D/C in the next 24-48 hrs pending clinical improvement VS, I&O, 24H, Fishbone Vital Signs/I&O Vital Signs Date Time Temp Pulse Resp B/P (MAP) Pulse Ox O2 Delivery O2 Flow Rate FiO2 01/21/17 08:29 74 144/83 01/21/17 06:00 97.5 18 93 Room Air 01/19/17 06:47 2.0 I&O- Last 24 Hours up to 6 AM 01/21/17 06:00 Intake Total 1260 ml Output Total 3400 ml Balance -2140 ml Laboratory Data 24H LABS Laboratory Tests 2 01/20/17 16:47: Bedside Glucose (Misc Panel) 269H 01/20/17 20:26: Bedside Glucose (Misc Panel) 358H 01/21/17 06:14: Anion Gap 8, Glomerular Filtration Rate 48.0, Blood Urea Nitrogen 18, Creatinine 1.21H, Sodium Level 138, Potassium Level 3.9, Chloride Level 104, Carbon Dioxide Level 26, Calcium Level 9.1, Aspartate Amino Transf (AST/SGOT) 49H, Alanine Aminotransferase (ALT/SGPT) 95H, Alkaline Phosphatase 392H, Total Bilirubin 1.6H, Total Protein 5.7L, Albumin 2.2L, Albumin/Globulin Ratio 0.63L 01/21/17 11:12: Bedside Glucose (Misc Panel) 254H CBC/BMP Laboratory Tests 01/21/17 06:14 Red Blood Count 3.93 L, Mean Corpuscular Volume 89.8, Mean Corpuscular Hemoglobin 29.5, Mean Corpuscular Hemoglobin Concent 32.8, Red Cell Distribution Width 13.9, Calcium Level 9.1, Aspartate Amino Transf (AST/SGOT) 49 H, Alanine Aminotransferase (ALT/SGPT) 95 H, Alkaline Phosphatase 392 H, Total Bilirubin 1.6 H, Total Protein 5.7 L, Albumin 2.2 L Microbiology Microbiology 01/18/17 Blood Culture - Preliminary, Resulted No Growth after 72 hours. All specime... 01/19/17 Urine Culture - Final, Complete MICHAEL STEWART MD January 21, 2017 15:25
[2017-01-21] MEDS: ACETAMINOPHEN TAB 650MG DOSE (2X325MG) PO PRN (15:52)
[2017-01-21 22:00] VITALS: BP 150/62
[2017-01-21] MEDS: MONTELUKAST 10 MG TAB PO SCH (23:19)
[2017-01-21] MEDS: LEVEMIR (INSULIN DETEMIR) 1 UNITS/0.01ML SC SCH (23:20)
[2017-01-22 06:00] VITALS: BP 150/80
[2017-01-22 06:46] LABS: MEAN CORPUSCULAR HEMOGLOBIN 29.6 pg (27.0-33.0); MEAN CORPUSCULAR HGB CONC 32.8 g/dl (32.0-36.5); MEAN CORPUSCULAR VOLUME 90.3 fl (80.0-96.0); WHITE BLOOD COUNT 5.6 K/mm3 (4.0-10.0)
[2017-01-22 06:59] LABS: ALBUMIN 2.3 GM/DL (3.2-5.2); ALBUMIN/GLOBULIN RATIO 0.53 (1.00-1.93); BILIRUBIN,TOTAL 1.2 MG/DL (0.2-1.0); CALCIUM LEVEL 9.6 MG/DL (8.8-10.2); CREATININE FOR GFR 1.28 MG/DL (0.55-1.02); TOTAL PROTEIN 6.6 GM/DL (6.4-8.2)
[2017-01-22] MEDS: ACETAMINOPHEN TAB 650MG DOSE (2X325MG) PO PRN ×2 (08:33→19:53)
[2017-01-22] MEDS: RIVAROXABAN 15 MG TAB (XARELTO) PO SCH (08:33)
[2017-01-22] MEDS: HumaLOG INSULIN (NovoLOG) PER UNIT SC SCH ×4 (08:33→21:58)
[2017-01-22] MEDS: PANTOPRAZOLE 40MG TAB (PROTONIX) PO SCH (08:33)
[2017-01-22] MEDS: amLODIPine 10 MG TAB PO SCH (08:33)
[2017-01-22] MEDS: NYSTATIN 100,000 UNITS/GM TOPICAL PWD 15 GM TOP SCH (08:34)
[2017-01-22] MEDS: risperiDONE 1 MG TAB PO SCH ×2 (08:34→21:59)
[2017-01-22] MEDS: SODIUM CHLORIDE NASAL 0.65% SPRAY BTL (OCEAN) SCH ×2 (08:34→22:00)
[2017-01-22] MEDS: PREGABALIN 25 MG CAP (LYRICA) PO SCH ×2 (08:34→21:59)
[2017-01-22] MEDS: FLUoxetine 20 MG CAP PO SCH (08:34)
[2017-01-22 14:00] VITALS: BP 177/81
--- NOTE | 2017-01-22 16:50 | IPNPDOC ---
Subjective Date Seen The patient was seen on 01/22/17. Subjective Chief Complaint/HPI The patient is a 61-year-old female admitted with a reason for visit of Acute Pancreatitis. General: Denies: Chills, Night Sweats Constitutional: Denies: Chills, Fever Eyes: Denies: Pain, Vision change ENT: Denies: Head Aches, Ear Pain Skin: Denies: Rash, Lesions Pulmonary: Denies: Dyspnea, Cough Cardiovascular: Denies: Chest Pain, Palpitations Gastrointestinal: Denies: Nausea, Vomiting Genitourinary: Denies: Dysuria, Frequency Hematologic: Denies: Bruising, Bleeding Excessively Objective Physical Examination General Exam: Positive: Alert, Cooperative, No Acute Distress, Other (Morbidly obese) ENT Exam: Positive: Atraumatic, Mucous membr. moist/pink Neck Exam: Negative: JVD Chest Exam: Positive: Clear to auscultation, Normal air movement Heart Exam: Positive: Rate Normal, Normal S1, Normal S2 Abdomen Exam: Positive: Soft, Negative: Tenderness Extremity Exam: Negative: Tenderness, Swelling Assessment /Plan Plan/VTE VTE Prophylaxis Ordered?: Yes Plan/Urinary Catheter Reason for insertion/continuin: Critical Pt monitoring Plan Acute Pancreatitis Ultrasound of the gallbladder negative for any gallstones, or signs of cholecystitis or choledocholithiasis Status post IV fluid hydration Patient tolerating PO diet without any complaints Patient's LFTs trending downward We will continue to monitor the patient's status Lactic acidosis likely 2/2 above, resolved Status was IV fluid hydration Chronic kidney disease stage III Serum creatinine appears to be at baseline History of atrial fibrillation Rate controlled Continue Xarelto Transaminitis Trending downward Likely secondary to fatty liver as noted on ultrasound We will continue to monitor Mild to moderate pulmonary hypertension likely secondary to obesity 2-D echocardiogram 08/2016 noted NAKUL protocol Hypertension, controlled Continue current regimen History of right lower extremity deep venous thrombosis (DVT) Continue Xarelto Type 2 diabetes Continue Levemir, insulin sliding scale Bipolar disorder Continue fluoxetine. Reflux Continue Protonix DVT prophylaxis Already on Xarelto Disposition-Patient tolerating diet well. Physical Therapy Optimization. Anticipate D/C in the next 24hrs pending clinical improvement VS, I&O, 24H, Fishbone Vital Signs/I&O Vital Signs Date Time Temp Pulse Resp B/P (MAP) Pulse Ox O2 Delivery O2 Flow Rate FiO2 01/22/17 14:00 98.6 95 16 177/81 (113) 95 Room Air 01/19/17 06:47 2.0 I&O- Last 24 Hours up to 6 AM 01/22/17 05:59 Intake Total 1800 ml Output Total 3700 ml Balance -1900 ml Laboratory Data 24H LABS Laboratory Tests 2 01/21/17 20:38: Bedside Glucose (Misc Panel) 352H 01/22/17 05:57: Anion Gap 8, Glomerular Filtration Rate 45.0, Blood Urea Nitrogen 17, Creatinine 1.28H, Sodium Level 136, Potassium Level 4.0, Chloride Level 102, Carbon Dioxide Level 26, Calcium Level 9.6, Aspartate Amino Transf (AST/SGOT) 56H, Alanine Aminotransferase (ALT/SGPT) 96H, Alkaline Phosphatase 443H, Total Bilirubin 1.2H, Total Protein 6.6, Albumin 2.3L, Albumin/Globulin Ratio 0.53L 01/22/17 11:49: Bedside Glucose (Misc Panel) 239H CBC/BMP Laboratory Tests 01/22/17 05:57 Red Blood Count 4.11, Mean Corpuscular Volume 90.3, Mean Corpuscular Hemoglobin 29.6, Mean Corpuscular Hemoglobin Concent 32.8, Red Cell Distribution Width 14.0 , Calcium Level 9.6, Aspartate Amino Transf (AST/SGOT) 56 H, Alanine Aminotransferase (ALT/SGPT) 96 H, Alkaline Phosphatase 443 H, Total Bilirubin 1.2 H, Total Protein 6.6, Albumin 2.3 L Microbiology Microbiology 01/18/17 Blood Culture - Preliminary, Resulted No Growth after 72 hours. All specime... 01/19/17 Urine Culture - Final, Complete MICHAEL STEWART MD January 22, 2017 16:50
[2017-01-22] MEDS: LEVEMIR (INSULIN DETEMIR) 1 UNITS/0.01ML SC SCH (21:59)
[2017-01-22] MEDS: MONTELUKAST 10 MG TAB PO SCH (21:59)
[2017-01-22 22:00] VITALS: BP 171/87
[2017-01-23 06:00] VITALS: BP 190/85
[2017-01-23 06:36] LABS: MEAN CORPUSCULAR HEMOGLOBIN 29.1 pg (27.0-33.0); MEAN CORPUSCULAR HGB CONC 32.2 g/dl (32.0-36.5); MEAN CORPUSCULAR VOLUME 90.3 fl (80.0-96.0); RED CELL DISTRIBUTION WIDTH 14.4 % (11.5-14.5)
[2017-01-23 06:54] LABS: ALBUMIN 2.3 GM/DL (3.2-5.2); ALBUMIN/GLOBULIN RATIO 0.55 (1.00-1.93); BILIRUBIN,TOTAL 0.9 MG/DL (0.2-1.0); CALCIUM LEVEL 9.5 MG/DL (8.8-10.2); CREATININE FOR GFR 1.35 MG/DL (0.55-1.02); GLOMERULAR FILTRATION RATE 42.3 (>45); POTASSIUM SERUM 4.1 MEQ/L (3.5-5.1); TOTAL PROTEIN 6.5 GM/DL (6.4-8.2)
[2017-01-23] MEDS: risperiDONE 1 MG TAB PO SCH (07:53)
[2017-01-23] MEDS: RIVAROXABAN 15 MG TAB (XARELTO) PO SCH (07:53)
[2017-01-23] MEDS: PREGABALIN 25 MG CAP (LYRICA) PO SCH (07:54)
[2017-01-23] MEDS: FLUoxetine 20 MG CAP PO SCH (07:54)
[2017-01-23] MEDS: PANTOPRAZOLE 40MG TAB (PROTONIX) PO SCH (07:54)
[2017-01-23 07:55] VITALS: BP 190/85
[2017-01-23] MEDS: SODIUM CHLORIDE NASAL 0.65% SPRAY BTL (OCEAN) SCH (07:55)
[2017-01-23] MEDS: amLODIPine 10 MG TAB PO SCH (07:55)
[2017-01-23] MEDS: HumaLOG INSULIN (NovoLOG) PER UNIT SC SCH ×2 (07:55→12:53)
[2017-01-23] MEDS: NYSTATIN 100,000 UNITS/GM TOPICAL PWD 15 GM TOP SCH (07:56)
[2017-01-23] MEDS ORDERED: AMLO10TA2 PO (09:54)
--- NOTE | 2017-01-23 12:44 | DS.PDOC ---
Discharge Summary General Date of Admission January 18, 2017 at 05:15 Date of Discharge 01/23/17 Discharge Summary PROCEDURES PERFORMED DURING STAY: None. ADMITTING DIAGNOSES: 1. . Pancreatitis DISCHARGE DIAGNOSES: 1. . Pancreatitis COMPLICATIONS/CHIEF COMPLAINT: Acute Pancreatitis. HISTORY OF PRESENT ILLNESS: . History of female with past medical history of type 2 diabetes, right lower extremity DVT, brain aneurysm with clipping in 2012, bipolar disorder, manic depressive disorder, lupus, congestive heart failure, GERD, atrial fibrillation on Xarelto, and anxiety presented to ER with chief complaint of epigastric abdominal pain. The patient was transferred from [facility] emergency room for treatment of pancreatitis and possible GI consultation. The patient had been reporting decreased appetite due to severe pain and persistent nausea and vomiting. The patient about any fevers, chills, chest pain, shortness of breath , diarrhea, constipation, dysuria, or any increased frequency. The patient was admitted to the hospital service with a diagnosis of pancreatitis under the hospitalist service. During hospitalization the patient was started on IV fluid hydration and kept nothing by mouth initially. An ultrasound of the gallbladder no intraorbital extrahepatic biliary ductal dilatation, the gallbladder was noted to be physiologically distended without any evidence of calculi or any pericholecystic fluid. The patient was subsequent started on a by mouth diet. The patient tolerated this well and denied any acute complaints of abdominal pain or any more nausea or vomiting. The patient's LFTs trended down appropriately. However they do have some baseline elevation likely secondary to fatty liver. The patient was seen by physical therapy and has been cleared to return home. At this time, the patient has been advised to follow-up with her primary care physician within one week. The patient is also been advised to return to the ER if her symptoms were to return and worsen. DISCHARGE MEDICATIONS: Please see below. ALLERGIES: Please see below. PHYSICAL EXAMINATION ON DISCHARGE: VITAL SIGNS: Please see below. General Exam: Positive: Alert, Cooperative, No Acute Distress, Other (Morbidly obese) ENT Exam: Positive: Atraumatic, Mucous membr. moist/pink Neck Exam: Negative: JVD Chest Exam: Positive: Clear to auscultation, Normal air movement Heart Exam: Positive: Rate Normal, Normal S1, Normal S2 Abdomen Exam: Positive: Soft, Negative: Tenderness Extremity Exam: Negative: Tenderness, Swelling LABORATORY DATA: Please see below. IMAGING: CLINICAL HISTORY: Abdominal pain. TECHNIQUE: Realtime sonographic images were obtained in multiple projections. COMMENTS: The liver is of normal size, parenchyma demonstrates increased echogenicity. No discrete hepatic mass is seen. There is no intra or extrahepatic biliary ductal dilatation. CBD measures 5.4 mm. The gallbladder is physiologically distended without evidence of calculi. The gallbladder wall is not thickened measuring 2.9 mm and there is no pericholecystic fluid. There is no abdominal ascites. The right kidney measures 11x4.1x4.5 cm, free of hydronephrosis. Echogenic foci are noted in the right kidney suggestive of calcified tiny nonobstructing stones versus vascular calcifications. IMPRESSION: Echogenic foci of the right kidney. Nonobstructing nephrolithiasis versus calcified vessels. PROGNOSIS: Medically stable ACTIVITY: As tolerated. DIET: . Carb consistent diet DISCHARGE PLAN: DISPOSITION: . Home DISCHARGE INSTRUCTIONS: 1. . Follow-up with primary care physician within one week 2. . Return to ER if symptoms return or worsen DISCHARGE CONDITION: Stable. TIME SPENT ON DISCHARGE: Greater than 30 minutes. Vital Signs/I&Os Vital Signs Date Time Temp Pulse Resp B/P (MAP) Pulse Ox O2 Delivery O2 Flow Rate FiO2 01/23/17 07:55 81 190/85 01/23/17 06:00 97.7 14 95 Room Air 01/19/17 06:47 2.0 I&O- Last 24 Hours up to 6 AM 01/23/17 06:00 Intake Total 2220 ml Output Total 3400 ml Balance -1180 ml Laboratory Data Labs 24H Laboratory Tests 2 01/22/17 16:57: Bedside Glucose (Misc Panel) 346H 01/22/17 20:16: Bedside Glucose (Misc Panel) 376H 01/23/17 06:10: Anion Gap 8, Glomerular Filtration Rate 42.3L, Blood Urea Nitrogen 18, Creatinine 1.35H, Sodium Level 136, Potassium Level 4.1, Chloride Level 102, Carbon Dioxide Level 26, Calcium Level 9.5, Aspartate Amino Transf (AST/SGOT) 86H, Alanine Aminotransferase (ALT/SGPT) 113H, Alkaline Phosphatase 437H, Total Bilirubin 0.9, Total Protein 6.5, Albumin 2.3L, Albumin/Globulin Ratio 0.55L 01/23/17 11:30: Bedside Glucose (Misc Panel) 284H CBC/BMP Laboratory Tests 01/23/17 06:10 Red Blood Count 4.19, Mean Corpuscular Volume 90.3, Mean Corpuscular Hemoglobin 29.1, Mean Corpuscular Hemoglobin Concent 32.2, Red Cell Distribution Width 14.4 , Calcium Level 9.5, Aspartate Amino Transf (AST/SGOT) 86 H, Alanine Aminotransferase (ALT/SGPT) 113 H, Alkaline Phosphatase 437 H, Total Bilirubin 0.9, Total Protein 6.5, Albumin 2.3 L FSBS Laboratory Tests Test 01/22/17 16:57 01/22/17 20:16 01/23/17 11:30 Range/Units Bedside Glucose (Misc Panel) 346 376 284 80-115 MG/DL Microbiology Microbiology 01/18/17 Blood Culture - Final, Complete NO GROWTH AFTER 5 DAYS 01/19/17 Urine Culture - Final, Complete Discharge Medications Scheduled (Risperidone) 1 Mg Tab, 1 MG PO BID, (Reported) Amlodipine Besylate (Amlodipine Besylate) 10 Mg Tab, 10 MG PO DAILY Fexofenadine Hydrochloride (Fexofenadine HCl) 180 Mg Tab, 180 MG PO DAILY, ( Reported) Fluoxetine HCl (Prozac) 40 Mg Cap, 40 MG PO DAILY, (Reported) Insulin Glargine (Lantus) 1 Units/0.01 Ml Susp, 60 UNITS SC QHS, (Reported) Insulin Human Lispro (Humalog) 1 Units/0.01 Ml Inj, UNITS SC TID, (Reported) SLIDING SCALE Losartan Potassium (Losartan Potassium) 50 Mg Tab, 50 MG PO DAILY, (Reported) Montelukast Sodium (Montelukast Sodium) 10 Mg Tab, 10 MG PO QHS, (Reported) Omeprazole (Omeprazole) 40 Mg Cap, 40 MG PO DAILY, (Reported) Pregabalin (Lyrica) 25 Mg Cap, 25 MG PO BID, (Reported) Rivaroxaban (Xarelto) 15 Mg Tab, 15 MG PO DAILY, (Reported) Scheduled PRN (Senna Plus 8.6-50 mg) 1 Tab Tab, 2 TAB PO DAILY PRN for CONSTIPATION, ( Reported) Acetaminophen (Acetaminophen) 500 Mg Tab, 500 MG PO Q4H PRN for PAIN, (Reported) Allergies Coded Allergies: Erythromycin (Verified Allergy, Unknown, 08/05/16) VOMIT Penicillins (Verified Allergy, Unknown, 08/05/16) Shellfish Allergy (Verified Allergy, Unknown, 08/05/16) Amoxicillin (Unverified Adverse Reaction, Mild, VOMIT, 01/18/17) MICHAEL STEWART MD January 23, 2017 12:44
[2017-01-23 12:53] VITALS: BP 140/84
== END 2017-01-23 14:15 | disposition home or self-care (01) | DRG 439 ==
LOC: EDBD 04:22 → M ED 05:13 → M ED INP 05:15 → M MSPAV 06:02 → M PCU 08:21 → M MS5PR 01-19 17:40
PROVIDERS: ADMIT General Practice; ATTEND Internal Medicine
DX: K85.90 Acute pancreatitis without necrosis or infection, unspecified (principal); I13.0 Hypertensive heart and chronic kidney disease with heart failure and stage 1 through stage 4 chronic kidney disease, or unspecified chronic kidney disease; Z68.41 Body mass index [BMI] 40.0-44.9, adult; I27.2 Other secondary pulmonary hypertension; N18.3 Chronic kidney disease, stage 3 (moderate); I50.9 Heart failure, unspecified; M32.9 Systemic lupus erythematosus, unspecified; I48.91 Unspecified atrial fibrillation; F41.0 Panic disorder [episodic paroxysmal anxiety]; R79.89 Other specified abnormal findings of blood chemistry; K76.0 Fatty (change of) liver, not elsewhere classified; E66.9 Obesity, unspecified; E11.9 Type 2 diabetes mellitus without complications; K21.9 Gastro-esophageal reflux disease without esophagitis; F31.9 Bipolar disorder, unspecified; Z79.4 Long term (current) use of insulin; Z79.01 Long term (current) use of anticoagulants; Z79.899 Other long term (current) drug therapy; Z88.0 Allergy status to penicillin; Z88.1 Allergy status to other antibiotic agents; Z91.013 Allergy to seafood; Z86.718 Personal history of other venous thrombosis and embolism; Z98.51 Tubal ligation status

== ENCOUNTER → 2017-01-30 | Outpatient (REF) | payer MEDICARE ==
[~2017-01-30] MED LIST changes: +AMLO10TA2 PO; +LOSA50TA20 PO; +OMEP40CA2 PO; +PREG25CA PO; +PROZ40CA PO
[2017-01-30 17:31] LABS: MEAN CORPUSCULAR HEMOGLOBIN 29.3 pg (27.0-33.0); MEAN CORPUSCULAR HGB CONC 32.3 g/dl (32.0-36.5); MEAN CORPUSCULAR VOLUME 90.7 fl (80.0-96.0); RED CELL DISTRIBUTION WIDTH 14.2 % (11.5-14.5); WHITE BLOOD COUNT 10.6 K/mm3 (4.0-10.0)
[2017-01-30 18:29] LABS: ALBUMIN 3.1 GM/DL (3.2-5.2); ALBUMIN/GLOBULIN RATIO 0.86 (1.00-1.93); BILIRUBIN,TOTAL 0.5 MG/DL (0.2-1.0); CALCIUM LEVEL 9.4 MG/DL (8.8-10.2); CREATININE FOR GFR 1.48 MG/DL (0.55-1.02); POTASSIUM SERUM 4.4 MEQ/L (3.5-5.1); TOTAL PROTEIN 6.7 GM/DL (6.4-8.2)
== END ==
LOC: M SFHCLERA 14:38
PROVIDERS: ATTEND Family Medicine
DX: K85.90 Acute pancreatitis without necrosis or infection, unspecified (principal)

== ENCOUNTER → 2017-02-15 | Outpatient (REF) | payer MEDICARE ==
[2017-02-15 20:36] LABS: MEAN CORPUSCULAR HEMOGLOBIN 30.2 pg (27.0-33.0); MEAN CORPUSCULAR HGB CONC 33.3 g/dl (32.0-36.5); MEAN CORPUSCULAR VOLUME 90.9 fl (80.0-96.0); RED CELL DISTRIBUTION WIDTH 14.5 % (11.5-14.5)
[2017-02-15 20:50] LABS: ALBUMIN 3.3 GM/DL (3.2-5.2); ALBUMIN/GLOBULIN RATIO 0.94 (1.00-1.93); BILIRUBIN,TOTAL 0.6 MG/DL (0.2-1.0); CALCIUM LEVEL 10.2 MG/DL (8.8-10.2); CREATININE FOR GFR 1.49 MG/DL (0.55-1.02); GLOMERULAR FILTRATION RATE 37.7 (>45); POTASSIUM SERUM 4.7 MEQ/L (3.5-5.1); TOTAL PROTEIN 6.8 GM/DL (6.4-8.2)
== END | disposition home or self-care (01) ==
LOC: M SFHCLERA 14:53
PROVIDERS: ATTEND Family Medicine
DX: K85.90 Acute pancreatitis without necrosis or infection, unspecified (principal)

== ENCOUNTER 2017-02-25 20:03 | Emergency (ER) | payer MEDICARE, MEDICAID ==
[~2017-02-25] VITALS: Ht 167.6 cm; Wt 109.1 kg
[2017-02-25 20:03] VITALS: BP 132/77
[2017-02-25] MEDS: CLINDAMYCIN 150 MG CAP PO ONE (20:35)
[2017-02-25] MEDS ORDERED: CLEO300C2 PO (20:36)
== END 2017-02-25 20:54 | disposition home or self-care (01) ==
LOC: M ED 20:49
DX: L02.31 Cutaneous abscess of buttock (principal); E10.9 Type 1 diabetes mellitus without complications; I50.9 Heart failure, unspecified; N18.9 Chronic kidney disease, unspecified; M32.9 Systemic lupus erythematosus, unspecified; Z79.01 Long term (current) use of anticoagulants

== ENCOUNTER → 2017-03-07 | Outpatient (REF) | payer MEDICARE ==
[~2017-03-07] MED LIST changes: +CLEO300C2 PO; +FLUO20CA19 PO; -FLUO20CA9 PO; -METO-207 PO; +METO1TAB7 PO
[2017-03-07 11:53] LABS: MEAN CORPUSCULAR HEMOGLOBIN 29.6 pg (27.0-33.0); MEAN CORPUSCULAR HGB CONC 32.4 g/dl (32.0-36.5); MEAN CORPUSCULAR VOLUME 91.4 fl (80.0-96.0); RED CELL DISTRIBUTION WIDTH 14.2 % (11.5-14.5); WHITE BLOOD COUNT 8.6 K/mm3 (4.0-10.0)
[2017-03-07 12:24] LABS: ANISOCYTOSIS 1+; EOSINOPHILS 1 % (0-5)
[2017-03-07 13:30] LABS: ALBUMIN 3.8 GM/DL (3.2-5.2); ALBUMIN/GLOBULIN RATIO 0.88 (1.00-1.93); BILIRUBIN,TOTAL 0.3 MG/DL (0.2-1.0); CALCIUM LEVEL 10.6 MG/DL (8.8-10.2); CREATININE FOR GFR 1.63 MG/DL (0.55-1.02); POTASSIUM SERUM 4.3 MEQ/L (3.5-5.1); TOTAL PROTEIN 8.1 GM/DL (6.4-8.2)
== END ==
LOC: M SFHCLERA 08:07
PROVIDERS: ATTEND Family Medicine
DX: L02.91 Cutaneous abscess, unspecified (principal); L03.317 Cellulitis of buttock

== ENCOUNTER → 2017-03-12 | Outpatient (REF) | payer MEDICARE, MEDICAID | LOC: M SFHCWOUN 15:06 | PROVIDERS: ATTEND Surgery | DX: L89.153 Pressure ulcer of sacral region, stage 3 (principal); E11.622 Type 2 diabetes mellitus with other skin ulcer; Z53.8 Procedure and treatment not carried out for other reasons ==

== ENCOUNTER → 2017-03-14 | Outpatient (REF) | payer MEDICARE, MEDICAID | LOC: M SFHCWOUN 12:52 | PROVIDERS: ATTEND Surgery | DX: L02.31 Cutaneous abscess of buttock (principal) ==

== ENCOUNTER → 2017-03-16 | Outpatient (CLI) | payer MEDICARE, MEDICAID | LOC: M LAB 12:22 | PROVIDERS: ATTEND Surgery | DX: E11.622 Type 2 diabetes mellitus with other skin ulcer (principal) ==

== ENCOUNTER → 2017-06-28 | Outpatient (REF) | payer MEDICARE, MEDICAID | LOC: M SFHCLERA 07:52 | PROVIDERS: ATTEND Family Medicine | DX: R20.9 Unspecified disturbances of skin sensation (principal); N18.9 Chronic kidney disease, unspecified; E08.610 Diabetes mellitus due to underlying condition with diabetic neuropathic arthropathy ==

== ENCOUNTER → 2017-08-15 | Outpatient (REF) | payer MEDICARE, MEDICAID ==
[2017-08-15 11:09] LABS: MEAN CORPUSCULAR HEMOGLOBIN 31.2 pg (27.0-33.0); MEAN CORPUSCULAR HGB CONC 33.4 g/dl (32.0-36.5); MEAN CORPUSCULAR VOLUME 93.3 fl (80.0-96.0); PLATELET COUNT, AUTOMATED 343 10^3/uL (150-450); RED CELL DISTRIBUTION WIDTH 13.2 % (11.5-14.5); WHITE BLOOD COUNT 9.8 10^3/uL (4.0-10.0)
[2017-08-15 11:33] LABS: ALBUMIN 3.4 GM/DL (3.2-5.2); ALBUMIN/GLOBULIN RATIO 0.85 (1.00-1.93); BILIRUBIN,TOTAL 0.3 MG/DL (0.2-1.0); CALCIUM LEVEL 9.7 MG/DL (8.8-10.2); CREATININE FOR GFR 1.28 MG/DL (0.55-1.02); POTASSIUM SERUM 4.4 MEQ/L (3.5-5.1); TOTAL PROTEIN 7.4 GM/DL (6.4-8.2)
== END ==
LOC: M SFHCLERA 08:48
PROVIDERS: ATTEND Family Medicine
DX: E11.65 Type 2 diabetes mellitus with hyperglycemia (principal)

== ENCOUNTER → 2017-10-17 | Outpatient (CLI) | payer MEDICARE, MEDICAID ==
[2017-10-17 11:18] LABS: ESTIMATED AVERAGE GLUCOSE 223 MG/DL (60-110); HEMOGLOBIN A1c 9.4 %
[2017-10-17 11:47] LABS: BLOOD UREA NITROGEN 25 MG/DL (7-18)
[2017-10-17 11:47] LABS: CREATININE FOR GFR 1.56 MG/DL (0.55-1.30); GLOMERULAR FILTRATION RATE 35.7 (>45); TOTAL PROTEIN 7.4 GM/DL (6.4-8.2)
[2017-10-17 11:48] LABS: FOLATE 8.7 NG/ML; VITAMIN B12 LEVEL 571 PG/ML
[2017-10-17 13:00] LABS: ALBUMIN 3.97 GM/DL (3.29-5.55); ALBUMIN % 53.7 % (55.8-66.1); ALPHA-1-GLOBULIN % 4.4 % (2.9-4.9); ALPHA-1-GLOBULINS 0.33 GM/DL (0.17-0.41); ALPHA-2-GLOBULINS 1.04 GM/DL (0.42-0.99); BETA-1-GLOBULINS 0.58 GM/DL (0.28-0.60); BETA-1-GLOBULINS % 7.9 % (4.7-7.2); BETA-2-GLOBULINS 0.52 GM/DL (0.19-0.55); GAMMA GLOBULINS 0.96 GM/DL (0.65-1.58)
[2017-10-19 00:06] LABS: COPPER PLASMA 106 ug/dL (72-166)
[2017-10-19 08:26] LABS: CERULOPLASMIN 31.8 mg/dL (19.0-39.0)
== END ==
LOC: M LAB 09:42
DX: I10 Essential (primary) hypertension (principal); E11.40 Type 2 diabetes mellitus with diabetic neuropathy, unspecified; E53.8 Deficiency of other specified B group vitamins
CPT/HCPCS: 82525

== ENCOUNTER → 2017-11-07 | Outpatient (CLI) | payer MEDICARE, MEDICAID ==
[~2017-11-07] MED LIST changes: -ACET50TAOT PO; -AMLO10TA2 PO; -CLEO300C2 PO; -COZA50TA PO; -DOXY-278 PO; -FEXO180T58 PO; -FLON1SPR; -FLUO20CA19 PO; -INSUHUMDS SC; -INSULANT SC; +ISOVUE-370 76% 100ML VIAL (Q9967) As Ordered; -LOSA25TA8 PO; -LOSA50TA20 PO; -METO1TAB7 PO; -MONT10TA2 PO; -OMEP20CA3 PO; -OMEP40CA2 PO; -PREG25CA PO; -PROZ40CA PO; -RISP1TAB3 PO; -SENN1TAB2 PO; -XARE15TA PO
== END ==
LOC: M RAD 17:37
DX: I67.1 Cerebral aneurysm, nonruptured (principal)
CPT/HCPCS: Q9967

== ENCOUNTER → 2018-01-30 | Outpatient (REF) | payer MEDICARE, MEDICAID | LOC: M SFHCLERA 09:39 | DX: Z53.21 Procedure and treatment not carried out due to patient leaving prior to being seen by health care provider (principal) ==

== ENCOUNTER → 2018-09-25 | Outpatient (REF) | payer MEDICARE, MEDICAID ==
[~2018-09-25] MED LIST changes: +ACET500T15 PO; +AMLO10TA5 PO; +CLEO300C2 PO; +COZA50TA PO; +DOXY-350 PO; +FEXO180T58 PO; +FLON1SPR; +FLUO20CA19 PO; +INSUHUMDS SC; +INSULANT SC; -ISOVUE-370 76% 100ML VIAL (Q9967) As Ordered; +LOSA25TA14 PO; +LOSA50TA88 PO; +METO1TAB7 PO; +MONT10TA2 PO; +OMEP20CA3 PO; +OMEP40CA2 PO; +PREG25CA PO; +PROZ40CA PO; +RISP1TAB3 PO; +SENN1TAB2 PO; +XARE15TA PO
== END ==
LOC: M SFHCLERA 10:25
PROVIDERS: ATTEND Family Medicine
DX: E11.65 Type 2 diabetes mellitus with hyperglycemia (principal); Z53.8 Procedure and treatment not carried out for other reasons

== ENCOUNTER → 2018-11-25 | Outpatient (REF) | payer MEDICARE, MEDICAID ==
[~2018-11-25] MED LIST changes: -SENN1TAB2 PO; +SENN1TAB40 PO
[2018-11-25 17:22] LABS: BASO # 0.1 10^3/uL (0.0-0.2); BASO % 0.7 % (0.0-1.0); EOS # 0.1 10^3/uL (0.0-0.50); EOS % 0.4 % (0.0-3.0); HEMATOCRIT 45.9 % (36.0-47.0); LYMPH # 1.7 10^3/uL (1.5-4.5); MEAN CORPUSCULAR HEMOGLOBIN 31.1 pg (27.0-33.0); MEAN CORPUSCULAR HGB CONC 32.7 g/dl (32.0-36.5); MONO # 0.7 10^3/uL (0.0-0.8); NEUTROPHILS # 9.6 10^3/uL (1.8-7.7); NEUTROPHILS % 78.5 % (36.0-66.0); PLATELET COUNT, AUTOMATED 344 10^3/uL (150-450); RED BLOOD COUNT 4.83 10^6/uL (4.00-5.40); WHITE BLOOD COUNT 12.2 10^3/uL (4.0-10.0)
[2018-11-25 17:34] LABS: ALBUMIN 3.5 GM/DL (3.2-5.2); BILIRUBIN,TOTAL 0.5 MG/DL (0.2-1.0); CALCIUM LEVEL 9.9 MG/DL (8.8-10.2); CHOLESTEROL RISK RATIO 2.796 (<5); CREATININE FOR GFR 1.55 MG/DL (0.55-1.30); GLOMERULAR FILTRATION RATE 35.8 (>45); POTASSIUM SERUM 4.6 MEQ/L (3.5-5.1); THYROID STIMULATING HORMONE 2.63 uIU/ML (0.358-3.740); TOTAL PROTEIN 7.2 GM/DL (6.4-8.2)
[2018-11-25 17:46] LABS: CREATININE, URINE 37.4 MG/DL; HEMOGLOBIN A1c 8.3 %; MALB URINE SIEMENS 14.4 MG/L; MAU/CREAT RATIO 38.5 MCG/MG (0.0-30.0)
== END ==
LOC: M SFHCLERA 12:09
PROVIDERS: ATTEND Family Medicine
DX: I10 Essential (primary) hypertension (principal); E08.610 Diabetes mellitus due to underlying condition with diabetic neuropathic arthropathy
CPT/HCPCS: 80053; 80061; 82043; 83036; 84443; 85025; G0463

== ENCOUNTER → 2019-02-12 | Outpatient (REF) | payer MEDICARE, MEDICAID ==
[2019-02-12 20:07] LABS: CALCIUM LEVEL 9.7 MG/DL (8.8-10.2); CREATININE FOR GFR 1.49 MG/DL (0.55-1.30); GLOMERULAR FILTRATION RATE 37.5 (>45); POTASSIUM SERUM 4.4 MEQ/L (3.5-5.1)
[2019-02-12 20:13] LABS: BASO # 0.1 10^3/uL (0.0-0.2); BASO % 0.7 % (0.0-1.0); EOS # 0.2 10^3/uL (0.0-0.50); EOS % 1.7 % (0.0-3.0); HEMATOCRIT 45.5 % (36.0-47.0); LYMPH # 2.3 10^3/uL (1.5-4.5); LYMPH % 22.3 % (24.0-44.0); MEAN CORPUSCULAR HEMOGLOBIN 31.6 pg (27.0-33.0); MEAN CORPUSCULAR VOLUME 95.8 fl (80.0-96.0); MONO # 0.9 10^3/uL (0.0-0.8); MONO % 8.8 % (0.0-5.0); NEUTROPHILS # 6.9 10^3/uL (1.8-7.7); NEUTROPHILS % 66.1 % (36.0-66.0); PLATELET COUNT, AUTOMATED 305 10^3/uL (150-450); RED BLOOD COUNT 4.75 10^6/uL (4.00-5.40); WHITE BLOOD COUNT 10.4 10^3/uL (4.0-10.0)
[2019-02-12 20:19] LABS: HEMOGLOBIN A1c 9.3 %
== END ==
LOC: M SFHCLERA 16:09
PROVIDERS: ATTEND Family Medicine
DX: D72.829 Elevated white blood cell count, unspecified (principal); N18.3 Chronic kidney disease, stage 3 (moderate); E08.610 Diabetes mellitus due to underlying condition with diabetic neuropathic arthropathy

== ENCOUNTER → 2019-02-19 | Outpatient (CLI) | payer MEDICARE ==
--- NOTE | 2019-02-28 12:10 | REPMRS ---
Patient History The patient states she has not had a clinical breast exam in over a year. Patient is postmenopausal. No known family history of cancer. Right breast lumpectomy 10 years ago-benign Digital Mammo Screening Bilat: February 19, 2019 - Exam #: [id number] Bilateral CC and MLO view(s) were taken. Technologist: Gill Hagan, Technologist Prior study comparison: July 16, 2013, bilateral screening mammogram, performed at [facility]. FINDINGS: There are scattered fibroglandular densities. There are well-circumscribed and benign nodules projecting bilaterally. These are unchanged. There has been some involutional change in the breast parenchyma bilaterally since prior study. There has been no other change in the appearance of the mammogram from the prior studies. There is a mild amount of scattered fibroglandular density which is fairly symmetric. There is no interval development of dominant mass, architectural distortion, or grouped microcalcification suggestive of malignancy. 3-D tomosynthesis shows no additional findings. Assessment: BI-RADS/ACR category 2 mammogram. Benign Findings. Recommendation Routine screening mammogram of both breasts in 1 year (for women over age 40). This patient's Lifetime Breast Cancer Risk is estimated at 6.4 %. This mammogram was interpreted with the aid of an FDA-approved computer-aided dectection system. Electronically Signed By: Ap Lujan MD 02/28/19 [id number]
== END ==
LOC: M RAD 13:08
PROVIDERS: ATTEND Family Medicine
DX: Z12.31 Encounter for screening mammogram for malignant neoplasm of breast (principal); Z78.0 Asymptomatic menopausal state; Z86.018 Personal history of other benign neoplasm

== ENCOUNTER 2019-03-21 21:53 | Inpatient (IN) | payer MEDICARE, SELFPAY ==
[~2019-03-21] VITALS: Ht 167.6 cm; Wt 94.5 kg
[~2019-03-21 21:53] MED LIST changes: +OMEP1CAP73 PO; -OMEP20CA3 PO; -OMEP40CA2 PO; +OMEP40CA97 PO; +SENN-53 PO; -SENN1TAB40 PO
--- NOTE | 2019-03-21 22:14 | REPVR ---
EXAM: CT Head Without Contrast EXAM DATE/TIME: 03/21/2019 10:04 PM CLINICAL HISTORY: 63 years old, female; Speech disturbance; Additional info: Neuro symptoms TECHNIQUE: Imaging protocol: Computed tomography images of the head without contrast. Radiation optimization: All CT scans at this facility use at least one of these dose optimization techniques: automated exposure control; mA and/or kV adjustment per patient size (includes targeted exams where dose is matched to clinical indication); or iterative reconstruction. Other technique: STROKE PROTOCOL was implemented. COMPARISON: No relevant prior studies available. FINDINGS: Brain: Postoperative encephalomalacia in the right temporal lobe. There is mild parenchymal volume loss. White matter changes are demonstrated in the subcortical, centrum semiovale and periventricular white matter consistent with small vessel white matter angiopathic gliosis. Small lacunar infarcts in the basal ganglia and subcortical white matter. Mild cerebellar atrophy. Ventricles: Normal. No ventriculomegaly. Bones/joints: Status post right frontotemporal craniotomy. Hyperostosis frontalis interna. Sinuses: Visualized sinuses are unremarkable. No fluid levels. Mastoid air cells: Visualized mastoid air cells are well aerated. No mastoid effusion. Soft tissues: Unremarkable. IMPRESSION: There is mild parenchymal volume loss. White matter changes are demonstrated in the subcortical, centrum semiovale and periventricular white matter consistent with small vessel white matter angiopathic gliosis. ASSESSMENT: ASPECTS ([facility] Stroke Program Early CT Score) is 10. Electronically signed by: Diogenes Gonzales On 03/21/2019 22:13:43 PM
[2019-03-21] MEDS ORDERED: ISOVUE-370 76% 100ML VIAL (Q9967) As Ordered ONE (22:41)
[2019-03-21 22:53] LABS: BASO # 0.1 10^3/uL (0.0-0.2); BASO % 0.9 % (0.0-1.0); EOS # 0.2 10^3/uL (0.0-0.50); EOS % 1.9 % (0.0-3.0); HEMATOCRIT 41.1 % (36.0-47.0); HEMOGLOBIN 14.2 g/dl (12.0-15.5); LYMPH # 2.8 10^3/uL (1.5-4.5); LYMPH % 35.3 % (24.0-44.0); MEAN CORPUSCULAR HEMOGLOBIN 31.6 pg (27.0-33.0); MEAN CORPUSCULAR HGB CONC 34.5 g/dl (32.0-36.5); MEAN CORPUSCULAR VOLUME 91.5 fl (80.0-96.0); MONO # 0.9 10^3/uL (0.0-0.8); NEUTROPHILS % 50.6 % (36.0-66.0); PLATELET COUNT, AUTOMATED 285 10^3/uL (150-450); RED BLOOD COUNT 4.49 10^6/uL (4.00-5.40); WHITE BLOOD COUNT 7.9 10^3/uL (4.0-10.0)
[2019-03-21 23:04] LABS: INR 1.85; PARTIAL THROMBOPLASTIN TIME 32.9 SECONDS (25.0-38.4); PROTHROMBIN TIME 21.1 SECONDS (11.8-14.0)
--- NOTE | 2019-03-21 23:16 | REPVR ---
EXAM: CT Angiography Neck With Contrast EXAM DATE/TIME: 03/21/2019 10:57 PM CLINICAL HISTORY: 63 years old, female; Speech disturbance; Dysarthria and anarthria; Additional info: Cute dysarthria/ h/o aneursym with similar symptoms TECHNIQUE: Imaging protocol: Axial computed tomographic angiography images of the neck with intravenous contrast using CT angiography protocol. Coronal and sagittal reformatted images were created and reviewed. 3D rendering: MIP reconstructed images were created and reviewed. Radiation optimization: All CT scans at this facility use at least one of these dose optimization techniques: automated exposure control; mA and/or kV adjustment per patient size (includes targeted exams where dose is matched to clinical indication); or iterative reconstruction. Contrast material: ISOVUE 370; Contrast volume: 100 ml; Contrast route: IV; COMPARISON: No relevant prior studies available. FINDINGS: VASCULATURE: Right common carotid artery: Unremarkable. No stenosis. No dissection or occlusion. Right internal carotid artery: Unremarkable extracranial segment. No stenosis. No dissection or occlusion. Right external carotid artery: Unremarkable. No occlusion or stenosis of the origin. Right vertebral artery: Dominant right vertebral artery. Left common carotid artery: Unremarkable. No stenosis. No dissection or occlusion. Left internal carotid artery: Unremarkable extracranial segment. No stenosis. No dissection or occlusion. Left external carotid artery: Unremarkable. No occlusion or stenosis of the origin. Left vertebral artery: Hypoplastic left vertebral artery. Other vasculature: Mild atherosclerotic changes in the brachycephalic artery without significant stenosis. NECK: Bones/joints: Degenerative spondylosis cervical spine. Soft tissues: Normal. No significant soft tissue swelling. IMPRESSION: 1. No significant stenosis in either internal carotid artery. 2. Hypoplastic left vertebral artery. Dominant right vertebral artery. COMMENT: Reference per NASCET criteria for degree of stenosis: Mild: less than 50% stenosis. Moderate: 50-69% stenosis. Severe: 70-94% stenosis. Near occlusion: 95-99% stenosis. Electronically signed by: Diogenes Gonzales On 03/21/2019 23:16:07 PM
[2019-03-21 23:21] LABS: ALBUMIN 3.1 GM/DL (3.2-5.2); ALT/SGPT 16 U/L (12-78); BILIRUBIN,DIRECT 0.1 MG/DL (0.0-0.2); BILIRUBIN,TOTAL 0.4 MG/DL (0.2-1.0); CK-MB VALUE MASS 2.9 NG/ML (<3.6); CPK CREATINE PHOSPHOKINASE 58 U/L (26-192); LIPASE 909 U/L (73-393); TOTAL PROTEIN 6.4 GM/DL (6.4-8.2); TROPONIN I < 0.02 NG/ML (< 0.10)
--- NOTE | 2019-03-21 23:29 | REPVR ---
EXAM: CT Angiography Head With Contrast EXAM DATE/TIME: 03/21/2019 10:57 PM CLINICAL HISTORY: 63 years old, female; Speech disturbance; Dysarthria and anarthria; Additional info: Cute dysarthria/ h/o aneursym with similar symptoms TECHNIQUE: Imaging protocol: Computed tomographic angiography images of the head with intravenous contrast using CT angiography protocol. Coronal and sagittal reformatted images were created and reviewed. 3D rendering: MIP reconstructed images were created and reviewed. Radiation optimization: All CT scans at this facility use at least one of these dose optimization techniques: automated exposure control; mA and/or kV adjustment per patient size (includes targeted exams where dose is matched to clinical indication); or iterative reconstruction. Contrast material: ISOVUE 370; Contrast volume: 100 ml; Contrast route: IV; COMPARISON: CT Head without contrast 03/21/2019 10:03 PM FINDINGS: Right internal carotid artery: Atherosclerotic changes demonstrated in the right intracranial carotid artery. No significant stenosis. Right anterior cerebral artery: Unremarkable. No occlusion or significant stenosis. No aneurysm. Right middle cerebral artery: Post aneurysm clipping. No visible aneurysm demonstrated. Otherwise unremarkable. No occlusion or significant stenosis. Right posterior cerebral artery: Unremarkable. No occlusion or significant stenosis. No aneurysm. Right vertebral artery: Dominant right vertebral artery. Left internal carotid artery: Atherosclerotic changes demonstrated in the left intracranial carotid artery. No significant stenosis. Left anterior cerebral artery: Unremarkable. No occlusion or significant stenosis. No aneurysm. Left middle cerebral artery: Unremarkable. No occlusion or significant stenosis. No aneurysm. Left posterior cerebral artery: Persistent origin left posterior cerebral artery with contribution from the basilar tip is well. Left vertebral artery: Hypoplastic V3 and V4 segments left vertebral artery. Basilar artery: Tortuous basilar artery. HEAD: Sinuses: Postsurgical changes in the middle cranial fossa status post right temporoparietal craniotomy and status post placement of a vascular clip at the distal right middle cerebral artery. Beam hardening artifact partially obscures visualization. No aneurysm visible. IMPRESSION: 1. Atherosclerotic changes demonstrated in the right intracranial carotid artery. No significant stenosis. 2. Atherosclerotic changes demonstrated in the left intracranial carotid artery. No significant stenosis. 3. Postsurgical changes in the middle cranial fossa on the right status post placement of a vascular clip. Beam hardening artifact partially obscures visualization. No aneurysm visible. 4. Hypoplastic left vertebral artery. Dominant right vertebral artery. Electronically signed by: Diogenes Gonzales On 03/21/2019 23:28:57 PM
[2019-03-22] MEDS ORDERED: ASPIRIN 81 MG CHEW TABLET PO ONE
[2019-03-22] MEDS ORDERED: ACET-908 PO (00:16)
[2019-03-22] MEDS ORDERED: AMLO10TA5 PO (00:16)
[2019-03-22] MEDS ORDERED: ATOR1TAB21 PO (00:21)
[2019-03-22] MEDS ORDERED: NYST1POW9 TOP (00:21)
[2019-03-22] MEDS ORDERED: INSUH10VL SC (00:21)
[2019-03-22] MEDS ORDERED: BASA100I SC (00:24)
[2019-03-22] MEDS ORDERED: KCL 20MEQ IN 100ML SWI (KRUN) 20 MEQ in IV 1 EA IV ONE ×2 (00:45)
[2019-03-22] MEDS ORDERED: NYSTATIN 100,000 UNITS/GM TOPICAL PWD 15 GM TOP PRN (00:45)
--- NOTE | 2019-03-22 00:52 | HPEPDOC ---
General Date of Admission 03/22/19 Date of Service: Mar 22, 2019 Attending Physician: DEN LEMA MD Chief Complaint The patient is a 63-year-old female admitted with a reason for visit of Neuro Is curtis. Source: Family Exam Limitations: Garbled speech Timing/Duration: Other (since 8:30 PM) History of Present Illness 63 years old white female lives with her daughter was brought in because she was found to have a follow minutes speaking and swallowing while eating dinner at 8:30 PM last night. History was obtained from patient's daughter at the bedside. Patient is unable to give me history. Secondary to her physical impairment. She tries to speak but is still speech is not understandable. Patient does have a history of dementia, but no chest pain, no shortness of breath, no dizziness, syncope, etc. Home Medications Scheduled Amlodipine Besylate (Amlodipine Besylate) 10 Mg Tablet, 10 MG PO QPM, (Reported) Atorvastatin Calcium (Atorvastatin Calcium) 20 Mg Tablet, 20 MG PO QPM, (Reported) Fluoxetine HCl (Prozac) 40 Mg Cap, 40 MG PO QPM, (Reported) Insulin Glargine,Hum.rec.anlog (Basaglar Kwikpen U-100) 100 Unit/1 Ml Insuln.pen, 60 UNITS SC QPM, (Reported) Insulin Human Lispro (Novolog) 100 Unit/1 Ml Vial, 15 UNITS SC TID, (Reported) Losartan Potassium (Losartan Potassium) 50 Mg Tab, 50 MG PO QPM, (Reported) Pregabalin (Lyrica) 25 Mg Cap, 25 MG PO BID, (Reported) Risperidone (Risperidone) 1 Mg Tab, 1 MG PO BID, (Reported) Rivaroxaban (Xarelto) 15 Mg Tab, 15 MG PO QPM, (Reported) Scheduled PRN Acetaminophen (Acetaminophen) 325 Mg Tablet, 650 MG PO Q4H PRN for PAIN, (Reported) Nystatin (Nystatin Powder) 15 Gm Powder, 1 DOSE TOP DAILY PRN for RASH, (Reported) APPLY UNDER BREASTS Allergies Coded Allergies: Penicillins (Verified Allergy, Unknown, 03/21/19) erythromycin base (Verified Allergy, Unknown, 03/21/19) shellfish derived (Verified Allergy, Unknown, 03/21/19) amoxicillin (Verified Adverse Reaction, Unknown, vomiting, 03/21/19) Past Medical History Medical History Diabetes mellitus, neuropathy of feet, status post , status post tubal ligation, Bartholin's cyst surgery, 2 C-sections also clipping of brain aneurysm 2012. Also history of bipolar disorder, manic depressive, A. fib and dementia Surgical History As above Social History * Smoker: Denies Alcohol: Denies Drugs: denies A-FIB/CHADSVASC A-FIB History Current/History of A-Fib/PAF?: Yes Current PO Anticoag Therapy: Yes Review of Systems Constitutional: Reports: Other (unable to obtained review of systems secondary to patient's disability at present time) Physical Examination General Exam: Positive: Alert, Cooperative Eye Exam: Positive: PERRLA, Conjunctiva & lids normal, EOMI ENT Exam: Positive: Atraumatic, Mucous membr. moist/pink Chest Exam: Positive: Clear to auscultation, Normal air movement Heart Exam: Positive: Rate Normal, Normal S1, Normal S2 Abdomen Exam: Positive: Normal bowel sounds, Soft Extremity Exam: Positive: Normal pulses Skin Exam: Positive: Nl turgor and temperature Neuro Exam: Positive: Strength at 5/5 X4 ext, Sensation Intact, Other (, space of aphasia noted on examination) Vital Signs Vital Signs Date Time Temp Pulse Resp B/P (MAP) Pulse Ox O2 Delivery O2 Flow Rate FiO2 03/21/19 23:45 125/81 (96) 03/21/19 23:38 59 16 98 Room Air 03/21/19 21:54 98.0 Laboratory Data Labs 24H Laboratory Tests 2 03/21/19 22:33: Immature Granulocyte % (Auto) 0.3, White Blood Count 7.9, Red Blood Count 4.49, Hemoglobin 14.2, Hematocrit 41.1, Mean Corpuscular Volume 91.5, Mean Corpuscular Hemoglobin 31.6, Mean Corpuscular Hemoglobin Concent 34.5, Red Cell Distribution Width 12.1, Platelet Count 285, Neutrophils (%) (Auto) 50.6, Lymphocytes (%) (Auto) 35.3, Monocytes (%) (Auto) 11.0H, Eosinophils (%) (Auto) 1.9, Basophils (%) (Auto) 0.9, Neutrophils # (Auto) 4.0, Lymphocytes # (Auto) 2.8, Monocytes # (Auto) 0.9H, Eosinophils # (Auto) 0.2, Basophils # (Auto) 0.1, Nucleated Red Blood Cells % (auto) 0.0, Prothrombin Time 21.1H, Prothromb Time International Ratio 1.85, Activated Partial Thromboplast Time 32.9, Aspartate Amino Transf (AST/SGOT) 9, Alanine Aminotransferase (ALT/SGPT) 16, Alkaline Phosphatase 113, Total Bilirubin 0.4, Direct Bilirubin 0.1, Total Creatine Kinase 58, Creatine Kinase MB 2.9, Creatine Kinase MB Relative Index 5.00H, Troponin I < 0.02, Total Protein 6.4, Albumin 3.1L, Albumin/Globulin Ratio 0.94L, Lipase 909H 03/21/19 22:35: POC Glucose (Misc Panel) 202H, POC Sodium (Misc Panel) 135L, POC Potassium (Misc Panel) 3.1L, POC Chloride (Misc Panel) 102, POC Total CO2 (Misc Panel) 19.0L, POC Blood Urea Nitrogen (Misc Panel 8, POC Ionized Calcium (Misc Panel) 5.2, POC Creatinine (Misc Panel) 1.1, POC Hematocrit (Misc Panel) 42.0 03/21/19 22:41: Bedside Prothrombin Time INR 1.8, Prothrombin Time (MISC) 21.0H CBC/BMP Laboratory Tests 03/21/19 22:33 Red Blood Count 4.49, Mean Corpuscular Volume 91.5, Mean Corpuscular Hemoglobin 31.6, Mean Corpuscular Hemoglobin Concent 34.5, Red Cell Distribution Width 12.1, Neutrophils (%) (Auto) 50.6, Lymphocytes (%) (Auto) 35.3, Monocytes (%) (Auto) 11.0 H, Eosinophils (%) (Auto) 1.9, Basophils (%) (Auto) 0.9, Neutrophils # (Auto) 4.0, Lymphocytes # (Auto) 2.8, Monocytes # (Auto) 0.9 H, Eosinophils # (Auto) 0.2, Basophils # (Auto) 0.1 Problems (1) CVA (cerebral vascular accident) Status: Acute Problem Text: Admit to med floor with telemetry Saline lock Nothing by mouth except meds , Aspirin 81 mg by mouth daily Continue anticoagulation with eliquis Echocardiogram CT angiogram essentially does not show any carotid blockage CT head shows There is mild parenchymal volume loss. White matter changes are demonstrated in the subcortical, centrum semiovale and periventricular white matter consistent with small vessel white matter angiopathic gliosis. PT, OT eval Speech and swallow evaluation Continue home meds Dr. Diaz from neurology was called by ED, he'll see the patient today DVT prophylaxis not needed as patient is already on anticoagulation Plan / VTE VTE Prophylaxis Ordered?: Yes DEN LEMA MD Mar 22, 2019 00:52
[2019-03-22] MEDS: KCL 10MEQ/100ML SWI (KRUN) 100 ML IV SCH ×2 (01:15→02:05)
[2019-03-22 02:50] VITALS: BP 135/95
[2019-03-22] MEDS ORDERED: DEXTROSE 50% 50 ML SYRINGE IV PRN (03:45)
[2019-03-22] MEDS ORDERED: GLUCAGON FOR INJ 1 MG VIAL (J1610) SC PRN (03:45)
[2019-03-22] MEDS ORDERED: GLUCOSE 4 GM CHEW TABLET PO PRN (03:45)
[2019-03-22 06:00] VITALS: BP 144/73
--- NOTE | 2019-03-22 06:08 | ECGEPIP ---
[facility] - ED Test Date: 2019-03-21 Pat Name: GAL COOMBS Department: Room: - Gender: Female Welfare Worker: : 1955 Requested By: RAMESH Schrader Order Number: [id number] Reading MD: Gamaliel Brito Measurements Intervals [place] Rate: 75 P: 94 DC: 203 QRS: QRSD: 90 T: 55 QT: 396 QTc: 443 Interpretive Statements SINUS RHYTHM WITH OCCASIONAL SUPRAVENTRICULAR PREMATURE COMPLEXES MODERATE VOLTAGE CRITERIA FOR LVH, CONSIDER NORMAL VARIANT NONSPECIFIC T-WAVE ABNORMALITY BASELINE ARTIFACT AFFECTS INTERPRETATION Electronically Signed on 03-22-2019 6:07:46 EDT by Gamaliel Brito
[2019-03-22 07:54] LABS: BASO # 0.1 10^3/uL (0.0-0.2); BASO % 1.1 % (0.0-1.0); EOS # 0.2 10^3/uL (0.0-0.50); HEMOGLOBIN 15.7 g/dl (12.0-15.5); LYMPH # 2.9 10^3/uL (1.5-4.5); LYMPH % 35.7 % (24.0-44.0); MEAN CORPUSCULAR HEMOGLOBIN 32.1 pg (27.0-33.0); MEAN CORPUSCULAR HGB CONC 33.4 g/dl (32.0-36.5); MEAN CORPUSCULAR VOLUME 96.1 fl (80.0-96.0); MONO # 0.9 10^3/uL (0.0-0.8); MONO % 11.4 % (0.0-5.0); NEUTROPHILS % 49.4 % (36.0-66.0); PLATELET COUNT, AUTOMATED 307 10^3/uL (150-450); RED BLOOD COUNT 4.89 10^6/uL (4.00-5.40)
[2019-03-22] MEDS: HumaLOG INSULIN (NovoLOG) PER UNIT SC SCH ×4 (08:00→21:00)
[2019-03-22 08:20] LABS: CALCIUM LEVEL 9.6 MG/DL (8.8-10.2); CREATININE FOR GFR 1.29 MG/DL (0.55-1.30); GLOMERULAR FILTRATION RATE 44.3 (>45); MAGNESIUM LEVEL 2.4 MG/DL (1.8-2.4)
[2019-03-22] MEDS: PREGABALIN 25 MG CAP (LYRICA) PO SCH ×2 (09:48→21:16)
[2019-03-22] MEDS: ASPIRIN 81 MG ENTERIC TAB PO SCH (09:49)
--- NOTE | 2019-03-22 13:17 | IPNPDOC ---
Text Note Date of Service The patient was seen on 03/22/19. NOTE Subjective: Patient is a 63-year-old female with a PMHx of Brain aneurysm (2012), A. fib (on Xarelto), Dementia, DM2, Neuropathy, Bipolar disorder / Depression who was brought to the emergency room by her daughter because of difficulty speaking and swallowing. In emergency room, patient received imaging that was consistent with an infarct. Patient was admitted to the hospital service for further evaluation and treatment. Neurology was called on consultation Patient was seen and examined at the bedside. Patient is awake and alert. She is oriented to person, place. . She denies any pain. Denies any nausea, vomiting, chest pain, shortness breath or palpitations. Denies diarrhea or discomfort with urination. Patient has been working with physical therapy and has progressed well. Patient did not have any difficulty swallowing pills and did not appear to have any evidence of aspiration. Objective: Vitals (See below) General: Lying in bed, no acute distress, comfortable, Awake / Alert HEENT: NC, AT CVS: +S1S2 Lungs: Fair air entry b/l, -w/r/r Abdomen: Soft, ND, NT Extremities: - Edema, - Calf tenderness Assessment and plan: Difficulty speaking /dysphagia - likely 2/2 acute CVA - Patient presented to the emergency room brought in by her daughter because of difficulty speaking and difficulty swallowing - Currently, patient remains hemodynamically stable - CT head 03/22: There is mild parenchymal volume loss. White matter changes are demonstrated in the subcortical, centrum semiovale and periventricular white matter consistent with small vessel white matter angiopathic gliosis. - CTA Neck 03/22: 1. No significant stenosis in either internal carotid artery. 2. Hypoplastic left vertebral artery. Dominant right vertebral artery. - CTA Head 03/22: 1. Atherosclerotic changes demonstrated in the right intracranial carotid artery. No significant stenosis. 2. Atherosclerotic changes demonstrated in the left intracranial carotid artery. No significant stenosis. 3. Postsurgical changes in the middle cranial fossa on the right status post placement of a vascular clip. Beam hardening artifact partially obscures visualization. No aneurysm visible. 4. Hypoplastic left vertebral artery. Dominant right vertebral artery. - ECHO pending - c/w Telemetry - c/w ASA 81 and Atorvastatin - Neurology on consultation Brain aneurysm (2012) A. fib - Currently not on any rate congtrol medications - c/w full anticoagulation with Xarelto HTN - BP well controlled - Will hold on Amlodipine / Losartan and allow for permissive HTN - Will continue to monitor Dementia / Cognitive impairment - Currently not on any medications IDDM2 - c/w ISS and Levemir Neuropathy Bipolar disorder / Depression - c/w Fluoxetine DVT prophylaxis - c/w full anticoagulation with Xarelto VS,Fishbone, I+O VS, Fishbone, I+O Laboratory Tests 03/21/19 22:33 Red Blood Count 4.49, Mean Corpuscular Volume 91.5, Mean Corpuscular Hemoglobin 31.6, Mean Corpuscular Hemoglobin Concent 34.5, Red Cell Distribution Width 12.1, Neutrophils (%) (Auto) 50.6, Lymphocytes (%) (Auto) 35.3, Monocytes (%) (Auto) 11.0 H, Eosinophils (%) (Auto) 1.9, Basophils (%) (Auto) 0.9, Neutrophils # (Auto) 4.0, Lymphocytes # (Auto) 2.8, Monocytes # (Auto) 0.9 H, Eosinophils # (Auto) 0.2, Basophils # (Auto) 0.1 03/22/19 07:42 Red Blood Count 4.89, Mean Corpuscular Volume 96.1 H, Mean Corpuscular Hemoglobin 32.1, Mean Corpuscular Hemoglobin Concent 33.4, Red Cell Distribution Width 12.5, Neutrophils (%) (Auto) 49.4, Lymphocytes (%) (Auto) 35.7, Monocytes (%) (Auto) 11.4 H, Eosinophils (%) (Auto) 2.0, Basophils (%) (Auto) 1.1 H, Neutrophils # (Auto) 4.0, Lymphocytes # (Auto) 2.9, Monocytes # (Auto) 0.9 H, Eosinophils # (Auto) 0.2, Basophils # (Auto) 0.1, Calcium Level 9.6 Vital Signs Date Time Temp Pulse Resp B/P (MAP) Pulse Ox O2 Delivery O2 Flow Rate FiO2 03/22/19 06:00 98.1 73 18 144/73 (96) 97 03/22/19 02:50 03/22/19 02:30 Room Air I&O- Last 24 Hours up to 6 AM 03/22/19 06:00 Intake Total 200 ml Balance 200 ml PILI BEAUCHAMP MD Mar 22, 2019 13:17
[2019-03-22 14:00] VITALS: BP 156/85
--- NOTE | 2019-03-22 19:15 | CR ---
DATE OF CONSULTATION: 03/22/2019 CONSULTING PHYSICIAN: Dr. Ryan Alcocer REASON FOR CONSULTATION: Difficulty speaking, dysphagia. HISTORY OF PRESENT ILLNESS: Ms. Plaza is a 63-year-old female with a pertinent past medical history of brain aneurysm in 2012, atrial fibrillation, on Xarelto, dementia, bipolar, and manic depression who was brought to the emergency department (ED) the evening prior by her daughter for the complaint of difficulty speaking and swallowing during dinnertime. Patient states that she noticed when she was eating macaroni and cheese that her food tasted weird in her mouth, and she had difficulty swallowing but did not choke on her food. She states that in the last couple months her speech has changed but she is unsure due to why. She is not the best historian. She states that she has only been living with her daughter for the last couple months, where she was unable to take care of herself. She was previously living in [place], [place], for a couple years and then [place] as well as [facility]. She denies any lightheadedness, dizziness, shortness of breath, chest pain, trouble swallowing. She states she is able to eat. Had pureed diet today during breakfast and lunch. She states that she has no difficulty with these kind of foods, but she has not tried any solid food. PAST MEDICAL HISTORY: 1. Diabetes mellitus with neuropathy of the lower extremities. 2. Manic depression and bipolar disorder. 3. Dementia. 4. Atrial fibrillation, on Xarelto. 5. Brain aneurysm clip placement in 2012. PAST SURGICAL HISTORY: 1. section. 2. Tubal ligation. 3. Bartholin cyst surgery. 4. Brain aneurysm clipping in 2012. SOCIAL HISTORY: Denies smoking. Denies alcohol. Denies illicit drug use. FAMILY HISTORY: Admits brain aneurysm in her daughter. HOME MEDICATIONS: - amlodipine 10 mg by mouth every evening - atorvastatin calcium 20 mg by mouth every evening - fluoxetine 40 mg P every evening - Basaglar KwikPen 60 units every evening - NovoLog 15 units three times a day - losartan potassium 50 mg every evening - pregabalin 25 mg by mouth twice a day - risperidone 1 mg by mouth twice a day - Xarelto 15 mg by mouth every evening ALLERGIES: PENICILLIN, ERYTHROMYCIN BASE, shellfish, AMOXICILLIN. REVIEW OF SYSTEMS: CONSTITUTIONAL: Denies any weight loss, fever, chills, night sweats, fatigue, malaise. HEENT: Denies hearing changes, ear pain, nasal congestion, sinus pain, hoarseness, sore throat, rhinorrhea. Does admit to difficulty swallowing solid food. Denies diplopia, eye pain, swelling, or vision changes. CARDIOVASCULAR: Denies shortness of breath, trouble breathing, paroxysmal nocturnal dyspnea (PND), dyspnea on exertion, orthopnea, chest pain, or lower extremity edema. RESPIRATORY: Denies any cough, sputum, wheezing, dyspnea, or any smoking history. GASTROINTESTINAL: Denies nausea, vomiting, diarrhea, constipation, or abdominal pain. MUSCULOSKELETAL: Denies any joint swelling, joint pain, joint stiffness, or arthralgia. SKIN: Denies any new skin lesion. NEUROLOGIC: Denies any weakness, numbness, loss of consciousness, syncope, dizziness, headaches. Denies paresthesia. Admits to difficulty swallowing and speech. PSYCHIATRIC: Denies anxiety. Admits to a history of manic bipolar and depression, delusions. Denies suicidal or homicidal ideation. HEMATOLOGY: Denies any bleeding, bruising, or lymphadenopathy. PHYSICAL EXAMINATION: VITAL SIGNS: Temperature 97.6, pulse 80, respiration rate 20, blood pressure 156/85 (108), pulse oximeter 99% on room air. GENERAL: This is a very pleasant 63-year-old female who does not appear in acute distress, sitting up on the bed, appropriately answering questions to the best of her knowledge, awake and alert. HEENT: Normocephalic, atraumatic. Pupils are equal, round, and reactive. No facial drooping noted. No lymphadenopathy in the neck. CARDIOVASCULAR: Sinus controlled with occasional premature ventricular contractions (PVCs), regular rate. (Does have a history of atrial fibrillation, currently not on rate-control medications.) No audible murmurs, rubs, or gallops. LUNGS: Clear to auscultation bilaterally. No audible wheezing, rhonchi, or rales. ABDOMEN: Soft, nontender, nondistended. EXTREMITIES: No extremities edema or calf tenderness. NEUROLOGIC: Alert and oriented to person and time but not place. Cranial nerves II-XII are intact bilaterally. Upper extremity and lower extremity muscle strength 5/5. Deep tendon reflexes 1+ in the upper extremities and the right knee. Absent Achilles reflex bilaterally and in the left patella. Normal sensory sensation, upper and lower extremities. Involuntary movement of the tongue can be noted. LABORATORY DATA: Hematology: WBC 8.8, hemoglobin 15.7, hematocrit 47.0, platelets 307. Chemistries: Sodium 139, potassium 4.0, chloride 109, carbon dioxide 23, anion gap 7, BUN 8, creatinine 1.29, fasting glucose 105, calcium 9.6, magnesium 2.4. Liver profile within normal limits. Troponin I is less than 0.05. CK-MB reflex index is 5.00. Albumin is 3.1. Lipase was 909. Repeat was 334. IMAGING: Head CT angiogram shows mild parenchymal volume loss. White matter changes demonstrated in the subcortical centrum semiovale and periventricular white matter consistent with small-vessel white matter changes. Idiopathic gliosis. Neck CT angiogram shows no significant stenosis of either internal carotid arteries. Hypoplastic left vertebral artery, dominant right vertebral artery. CT angiogram of the head: 1) Atherosclerotic changes demonstrated in the right intracranial carotid artery. No significant stenosis. 2) Atherosclerotic changes demonstrated in the left intracranial carotid orthopedics but no significant stenosis. 3) Postsurgical changes in the middle cranial fossa on the right status post placement of a vascular clip. Beam hardening artifact partially obscures with visualization but no aneurysm was visible. 4) Hypoplastic left vertebral artery. Dominant right vertebral artery. ASSESSMENT AND PLAN: 1. Difficulty speaking and dysphagia, likely secondary to a transient ischemic attacks (TIA) versus an acute cerebrovascular accident (CVA). Currently the patient is back at baseline. Recommendations include getting any MRI to see if acute CVA. The patient does have a history of vascular clip placed, so she will have to go through an MRI screening. Continue with the aspirin 81 mg and the atorvastatin as prescribed. Speech/swallow study pending. Continue diet as tolerated as now and then pending speech therapy evaluation can advance per their recommendation. 2. Involuntary movements of the tongue, possibly tardive dyskinesia secondary to the risperidone. Can consider outpatient Cogentin if needed. 3. Bipolar disorder and depression. Continue with the fluoxetine. 4. History of dementia and cognitive impairment, currently stable. Can consider outpatient followup with neurology for further evaluation. My faculty preceptor for this patient encounter was physically present during the encounter and was fully available. All aspects of the patient interview, examination, medical decision making process, and medical care plan development were reviewed and approved by the faculty preceptor. The faculty preceptor is aware and concurs with the plan as stated in the body of this note and will attest to such by his/her co-signature.
[2019-03-22] MEDS ORDERED: amLODIPine 10 MG TAB PO SCH (21:00)
[2019-03-22] MEDS ORDERED: LOSARTAN 50 MG TAB PO SCH (21:00)
[2019-03-22] MEDS: ATORVASTATIN 20 MG TAB PO SCH (21:15)
[2019-03-22] MEDS: FLUoxetine 20 MG CAP PO SCH (21:15)
[2019-03-22] MEDS: RIVAROXABAN 15 MG TAB (XARELTO) PO SCH (21:16)
[2019-03-22] MEDS: LEVEMIR (INSULIN DETEMIR) 1 UNITS/0.01ML SC SCH (21:16)
[2019-03-22 22:00] VITALS: BP 131/66
[2019-03-23 06:00] VITALS: BP 116/54
[2019-03-23 06:44] LABS: HEMATOCRIT 44.6 % (36.0-47.0); HEMOGLOBIN 14.8 g/dl (12.0-15.5); MEAN CORPUSCULAR HEMOGLOBIN 31.2 pg (27.0-33.0); MEAN CORPUSCULAR HGB CONC 33.2 g/dl (32.0-36.5); MEAN CORPUSCULAR VOLUME 93.9 fl (80.0-96.0); PLATELET COUNT, AUTOMATED 303 10^3/uL (150-450); RED BLOOD COUNT 4.75 10^6/uL (4.00-5.40); WHITE BLOOD COUNT 7.4 10^3/uL (4.0-10.0)
[2019-03-23 07:16] LABS: BILIRUBIN,TOTAL 0.3 MG/DL (0.2-1.0); CALCIUM LEVEL 9.7 MG/DL (8.8-10.2); CREATININE FOR GFR 1.4 MG/DL (0.55-1.30); GLOMERULAR FILTRATION RATE 40.3 (>45); MAGNESIUM LEVEL 2.1 MG/DL (1.8-2.4); POTASSIUM SERUM 4.2 MEQ/L (3.5-5.1); TOTAL PROTEIN 6.6 GM/DL (6.4-8.2)
[2019-03-23] MEDS ORDERED: NS 500 ML IV ONE (07:30)
[2019-03-23] MEDS: PREGABALIN 25 MG CAP (LYRICA) PO SCH ×2 (08:17→22:21)
[2019-03-23] MEDS: HumaLOG INSULIN (NovoLOG) PER UNIT SC SCH ×4 (08:17→22:18)
[2019-03-23] MEDS: ASPIRIN 81 MG ENTERIC TAB PO SCH (08:17)
[2019-03-23] MEDS: NS 1,000 ML IV SCH (11:03)
--- NOTE | 2019-03-23 12:20 | IPNPDOC ---
Text Note Date of Service The patient was seen on 03/23/19. NOTE Subjective: Patient is a 63-year-old female with a PMHx of Brain aneurysm (2012), A. fib (on Xarelto), Dementia, DM2, Neuropathy, Bipolar disorder / Depression who was brought to the emergency room by her daughter because of difficulty speaking and swallowing. In emergency room, patient received imaging that was consistent with an infarct. Patient was admitted to the hospital service for further evaluation and treatment. Neurology was called on consultation Patient was seen and examined at the bedside. Patient is seen sitting up in a chair. She denies any events overnight. Denies chest pain, shortness breath, palpitations. Denies any abdominal pain, constipation, or discomfort with urination. Patient has been working with physical therapy and has progressed well. . She has had no problems with her current diet. Objective: Vitals (See below) General: Lying in bed, no acute distress, comfortable, Awake / Alert HEENT: NC, AT CVS: +S1S2 Lungs: Fair air entry b/l, auscultations free of rhonchi, rales or wheezing Abdomen: Soft, nondistended, without tenderness Extremities: Lower extremities are free of any edema, - Calf tenderness Assessment and plan: Difficulty speaking /dysphagia - likely 2/2 acute CVA - Patient presented to the emergency room brought in by her daughter because of difficulty speaking and difficulty swallowing - has reported improvement in swallowing - CT head 03/22: There is mild parenchymal volume loss. White matter changes are demonstrated in the subcortical, centrum semiovale and periventricular white matter consistent with small vessel white matter angiopathic gliosis. - CTA Neck 03/22: 1. No significant stenosis in either internal carotid artery. 2. Hypoplastic left vertebral artery. Dominant right vertebral artery. - CTA Head 03/22: 1. Atherosclerotic changes demonstrated in the right intracranial carotid artery. No significant stenosis. 2. Atherosclerotic changes demonstrated in the left intracranial carotid artery. No significant stenosis. 3. Postsurgical changes in the middle cranial fossa on the right status post placement of a vascular clip. Beam hardening artifact partially obscures visualization. No aneurysm visible. 4. Hypoplastic left vertebral artery. Dominant right vertebral artery. - An MRI cannot be obtained at this point because of an existing clip from prior aneurysm repair - ECHO remains pending - c/w Telemetry for a total of 72 hours - c/w ASA 81 and Atorvastatin - Neurology on consultation Brain aneurysm (2013) - s/p coiling in [place] 5 years ago - Daughter has reported same type of coil / clips and was advised that neither of them could ever receive MRI imaging A. fib - Currently not on any rate control medications - c/w full anticoagulation with Xarelto HTN - BP well controlled without BP medications - Will hold on Amlodipine / Losartan and allow for permissive HTN - Will continue to monitor Dementia / Cognitive impairment - Currently not on any medications IDDM2 - c/w ISS and Levemir Neuropathy Bipolar disorder / Depression - c/w Fluoxetine DVT prophylaxis - c/w full anticoagulation with Xarelto Disposition: - Anticipate discharge home tomorrow VS,Monico, I+O VS, Monico, I+O Laboratory Tests 03/23/19 06:21 Red Blood Count 4.75, Mean Corpuscular Volume 93.9, Mean Corpuscular Hemoglobin 31.2, Mean Corpuscular Hemoglobin Concent 33.2, Red Cell Distribution Width 12.6, Calcium Level 9.7, Aspartate Amino Transf (AST/SGOT) 10, Alanine Aminotransferase (ALT/SGPT) 16, Alkaline Phosphatase 115, Total Bilirubin 0.3, Total Protein 6.6, Albumin 3.0 L Vital Signs Date Time Temp Pulse Resp B/P (MAP) Pulse Ox O2 Delivery O2 Flow Rate FiO2 03/23/19 06:00 97.5 84 17 116/54 (74) 93 03/22/19 02:50 03/22/19 02:30 Room Air I&O- Last 24 Hours up to 6 AM 03/23/19 06:00 Intake Total 2400 ml Output Total 800 ml Balance 1600 ml PILI BEAUCHAMP MD Mar 23, 2019 12:20
[2019-03-23 14:00] VITALS: BP 124/62
[2019-03-23] MEDS: ACETAMINOPHEN TAB 650MG DOSE (2X325MG) PO PRN (18:17)
[2019-03-23 22:00] VITALS: BP 132/76
[2019-03-23] MEDS: RIVAROXABAN 15 MG TAB (XARELTO) PO SCH (22:18)
[2019-03-23] MEDS: LEVEMIR (INSULIN DETEMIR) 1 UNITS/0.01ML SC SCH (22:18)
[2019-03-23] MEDS: ATORVASTATIN 20 MG TAB PO SCH (22:18)
[2019-03-23] MEDS: FLUoxetine 20 MG CAP PO SCH (22:18)
[2019-03-24] MEDS: NS 1,000 ML IV SCH ×2 (05:02→08:30)
[2019-03-24 06:00] VITALS: BP 145/85
[2019-03-24] MEDS: HumaLOG INSULIN (NovoLOG) PER UNIT SC SCH ×2 (07:30→12:43)
--- NOTE | 2019-03-24 07:43 | CR ---
DATE OF CONSULTATION: 03/23/2019 REFERRING PROVIDER: Dr. Ryan Alcocer REASON FOR CONSULTATION: Evaluation for transient ischemic attack (TIA)/stroke. Sussy Plaza is a 63-year-old female who presented to [facility] who was brought in by her daughter for having an episode of difficulty swallowing while eating dinner in the evening. She also had some difficulty with speech it seems. The patient was trying to speak. but her speech was not understandable it seems. The patient does have baseline dementia. She denied having episode of weakness or numbness in the face, arm or leg. She thinks that the symptoms are resolved at this time, although she is on a modified diet and has not tried to eat solid foods. A formal swallow evaluation is pending. The patient did have a head CT which was unremarkable. The patient had CT angiogram showing right MCA aneurysm clip. There was vascular artery tortuosity noted. The patient did not have any critical stenosis of the carotid vessels or posterior circulation. The right vertebral artery was dominant. The patient subsequently was placed on aspirin 81 mg daily given her symptoms of possible TIA in addition to her Xarelto which she takes for her atrial fibrillation. MRI is pending given further workup from outside hospital facilities in regards to the aneurysm clip completed 5 years ago. The patient cannot recall which hospital location she had the workup completed in. REVIEW OF SYSTEMS: 14-point review of systems obtained and is negative except as per history of present illness (HPI). HOME MEDICATIONS: - amlodipine - atorvastatin - fluoxetine - insulin - losartan - pregabalin - risperidone - Xarelto - acetaminophen - Nystatin ALLERGIES: - PENICILLIN - ERYTHROMYCIN - SHELLFISH - AMOXICILLIN PAST MEDICAL HISTORY: 1. Diabetes. 2. Diabetic neuropathy. 3. Depression. 4. Anxiety. 5. Intracranial aneurysm status post clipping. 6. Bipolar disorder. 7. Manic depression. 8. Atrial fibrillation. 9. Baseline dementia. SOCIAL HISTORY: The patient denies use of any tobacco, alcohol or illicit drugs. FAMILY HISTORY: Noncontributory. PHYSICAL EXAMINATION: Blood pressure is 156/85, pulse 80, respiratory rate is 20. Oxygenation 99% on room air. Temperature is 97.6 degrees Fahrenheit. The patient is awake, alert, oriented to her name. She knows she is in the hospital, but cannot tell me which one. She cannot tell me the correct year and month. The patient may have some subtle tardive dyskinesia movement of the tongue. Pupils are round, reactive to light. Extraocular movements are intact with nystagmus. Pursuits appear to be choppy. Sensation V1, V2, V3 is intact to light touch. No facial asymmetry to activation. Palate elevates symmetrically. Tongue is midline. No weakness of sternocleidomastoids bilaterally. Hearing is subjectively equal to finger rub. There is no pronator drift. Strength is 5/5 including bilateral deltoids, biceps, triceps, handgrip, iliopsoas, quadriceps, anterior tibialis. Sensory is intact to light touch in all four extremities. Coordination: Normal [id number] without any gross ataxia or dysmetria. Gait deferred. ASSESSMENT: 63-year-old female with symptoms of what sounds to be dysarthria and possible dysphagia. The patient may have some extrapyramidal symptoms of risperidone. PLAN: 1. Agree with continuation of low-dose aspirin 81 mg daily in addition to Xarelto. 2. Continue telemetry monitoring. 3. Obtain swallow evaluation. 4. Obtain MRI of brain without contrast after confirming aneurysm clip is compatible with our MRI machine.. 5. Physical therapy/occupational therapy (PT/OT), speech swallow evaluation. 6. Continue statin therapy. 7. Optimize hypertension, hyperlipidemia and diabetes.
[2019-03-24 08:04] LABS: BASO # 0.1 10^3/uL (0.0-0.2); BASO % 1.3 % (0.0-1.0); EOS # 0.2 10^3/uL (0.0-0.50); EOS % 3.3 % (0.0-3.0); HEMATOCRIT 42.2 % (36.0-47.0); HEMOGLOBIN 14.2 g/dl (12.0-15.5); LYMPH # 2.2 10^3/uL (1.5-4.5); LYMPH % 31.8 % (24.0-44.0); MEAN CORPUSCULAR HEMOGLOBIN 32.6 pg (27.0-33.0); MEAN CORPUSCULAR HGB CONC 33.6 g/dl (32.0-36.5); MONO # 0.8 10^3/uL (0.0-0.8); MONO % 10.8 % (0.0-5.0); NEUTROPHILS # 3.7 10^3/uL (1.8-7.7); NEUTROPHILS % 52.5 % (36.0-66.0); PLATELET COUNT, AUTOMATED 263 10^3/uL (150-450); RED BLOOD COUNT 4.35 10^6/uL (4.00-5.40)
[2019-03-24 08:30] LABS: CREATININE FOR GFR 1.19 MG/DL (0.55-1.30); GLOMERULAR FILTRATION RATE 48.6 (>45); POTASSIUM SERUM 4.5 MEQ/L (3.5-5.1)
[2019-03-24] MEDS: PREGABALIN 25 MG CAP (LYRICA) PO SCH (09:12)
[2019-03-24] MEDS: ASPIRIN 81 MG ENTERIC TAB PO SCH (09:12)
[2019-03-24] MEDS ORDERED: ASPI81TAEC PO (10:06)
[2019-03-24] MEDS: ACETAMINOPHEN TAB 650MG DOSE (2X325MG) PO PRN (13:27)
--- NOTE | 2019-03-24 15:06 | DS.PDOC ---
Discharge Summary General Date of Admission Mar 22, 2019 at 00:31 Date of Discharge 03/24/2019 Discharge Summary PROCEDURES PERFORMED DURING STAY: [None]. ADMITTING DIAGNOSES / DISCHARGE DIAGNOSES: Difficulty speaking /dysphagia - likely 2/2 acute CVA Brain aneurysm (2012) A. fib HTN Dementia / Cognitive impairment IDDM2 Neuropathy Bipolar disorder / Depression DVT prophylaxis COMPLICATIONS/CHIEF COMPLAINT: Slurred speech and difficulty swallowing HISTORY OF PRESENT ILLNESS: Patient is a 63-year-old female with a PMHx of Brain aneurysm (2012), A. fib (on Xarelto), Dementia, DM2, Neuropathy, Bipolar disorder / Depression who was brought to the emergency room by her daughter because of difficulty speaking and swallowing. In emergency room, patient received imaging that was consistent with an infarct. Patient was admitted to the hospital service for further evaluation and treatment. Neurology was called on consultation HOSPITAL COURSE: Difficulty speaking /dysphagia - likely 2/2 acute CVA - Patient presented to the emergency room brought in by her daughter because of difficulty speaking and difficulty swallowing - has reported improvement in swallowing - CT head 03/22: There is mild parenchymal volume loss. White matter changes are demonstrated in the subcortical, centrum semiovale and periventricular white matter consistent with small vessel white matter angiopathic gliosis. - CTA Neck 03/22: 1. No significant stenosis in either internal carotid artery. 2. Hypoplastic left vertebral artery. Dominant right vertebral artery. - CTA Head 03/22: 1. Atherosclerotic changes demonstrated in the right intracranial carotid artery. No significant stenosis. 2. Atherosclerotic changes demonstrated in the left intracranial carotid artery. No significant stenosis. 3. Postsurgical changes in the middle cranial fossa on the right status post placement of a vascular clip. Beam hardening artifact partially obscures visualization. No aneurysm visible. 4. Hypoplastic left vertebral artery. Dominant right vertebral artery. - An MRI cannot be obtained at this point because of an existing clip from prior aneurysm repair - ECHO remains pending - c/w Telemetry for a total of 72 hours - c/w ASA 81 and Atorvastatin - Neurology on consultation; will have outpatient follow-up within 7 days Brain aneurysm (2012) - s/p coiling in [place] 5 years ago - Daughter has reported same type of coil / clips and was advised that neither of them could ever receive MRI imaging A. fib - Currently not on any rate control medications - c/w full anticoagulation with Xarelto HTN - BP well controlled without BP medications - Will hold on Amlodipine / Losartan - Will have outpatient follow-up with primary care provider for blood pressure checks Dementia / Cognitive impairment - Currently not on any medications IDDM2 - c/w ISS and Levemir Neuropathy Bipolar disorder / Depression - c/w Fluoxetine DVT prophylaxis - c/w full anticoagulation with Xarelto DISCHARGE MEDICATIONS: Please see below. ALLERGIES: Please see below. PHYSICAL EXAMINATION ON DISCHARGE: Vitals (See below) General: Lying in bed, no acute distress, comfortable, Awake / Alert HEENT: NC, AT CVS: +S1S2 Lungs: Fair air entry b/l, no appreciable rhonchi, rales or wheezing Abdomen: Remains soft, without any distention or tenderness Extremities: No evidence of lower she may edema, - Calf tenderness LABORATORY DATA: Please see below. ACTIVITY: [As tolerated]. DISCHARGE PLAN: Please follow-up with Dr. Myles Argueta and Dr. Diaz within 7 days Remain compliant with treatment plan and medications Return to the ER if you experience any problems DISPOSITION: Home with services DISCHARGE CONDITION: [Stable]. TIME SPENT ON DISCHARGE: 35 minutes Vital Signs/I&Os Vital Signs Date Time Temp Pulse Resp B/P (MAP) Pulse Ox O2 Delivery O2 Flow Rate FiO2 03/24/19 06:00 97.4 74 16 145/85 (105) 95 03/22/19 02:50 03/22/19 02:30 Room Air I&O- Last 24 Hours up to 6 AM 03/24/19 06:00 Intake Total 4360 ml Output Total 3450 ml Balance 910 ml Laboratory Data Labs 24H Laboratory Tests 2 03/23/19 17:32: Bedside Glucose (Misc Panel) 251H 03/23/19 21:29: Bedside Glucose (Misc Panel) 214H 03/24/19 07:15: Bedside Glucose (Misc Panel) 81 03/24/19 07:42: Immature Granulocyte % (Auto) 0.3, White Blood Count 7.0, Red Blood Count 4.35, Hemoglobin 14.2, Hematocrit 42.2, Mean Corpuscular Volume 97.0H, Mean Corpuscular Hemoglobin 32.6, Mean Corpuscular Hemoglobin Concent 33.6, Red Cell Distribution Width 12.2, Platelet Count 263, Neutrophils (%) (Auto) 52.5, Lymphocytes (%) (Auto) 31.8, Monocytes (%) (Auto) 10.8H, Eosinophils (%) (Auto) 3.3H, Basophils (%) (Auto) 1.3H, Neutrophils # (Auto) 3.7, Lymphocytes # (Auto) 2.2, Monocytes # (Auto) 0.8, Eosinophils # (Auto) 0.2, Basophils # (Auto) 0.1, Nucleated Red Blood Cells % (auto) 0.0, Anion Gap 6L, Glomerular Filtration Rate 48.6, Blood Urea Nitrogen 15, Creatinine 1.19, Sodium Level 141, Potassium Level 4.5, Chloride Level 112H, Carbon Dioxide Level 23, Calcium Level 9.0, Magnesium Level 2.0 03/24/19 11:45: Bedside Glucose (Misc Panel) 179H CBC/BMP Laboratory Tests 03/24/19 07:42 Red Blood Count 4.35, Mean Corpuscular Volume 97.0 H, Mean Corpuscular Hemoglobin 32.6, Mean Corpuscular Hemoglobin Concent 33.6, Red Cell Distribution Width 12.2, Neutrophils (%) (Auto) 52.5, Lymphocytes (%) (Auto) 31.8, Monocytes (%) (Auto) 10.8 H, Eosinophils (%) (Auto) 3.3 H, Basophils (%) (Auto) 1.3 H, Neutrophils # (Auto) 3.7, Lymphocytes # (Auto) 2.2, Monocytes # (Auto) 0.8, Eosinophils # (Auto) 0.2, Basophils # (Auto) 0.1, Calcium Level 9.0 FSBS Laboratory Tests Test 03/23/19 17:32 03/23/19 21:29 03/24/19 07:15 03/24/19 11:45 Range/Units Bedside Glucose (Misc Panel) 251 214 81 179 80-115 MG/DL Discharge Medications Scheduled Amlodipine Besylate (Amlodipine Besylate) 10 Mg Tablet, 10 MG PO QPM, (Reported) Aspirin (Aspirin EC) 81 Mg Tablet.dr, 81 MG PO QAM Atorvastatin Calcium (Atorvastatin Calcium) 20 Mg Tablet, 20 MG PO QPM, (Reported) Fluoxetine HCl (Prozac) 40 Mg Cap, 40 MG PO QPM, (Reported) Insulin Glargine,Hum.rec.anlog (Basaglar Kwikpen U-100) 100 Unit/1 Ml Insuln.pen, 60 UNITS SC QPM, (Reported) Insulin Human Lispro (Novolog) 100 Unit/1 Ml Vial, 15 UNITS SC TID, (Reported) Losartan Potassium (Losartan Potassium) 50 Mg Tab, 50 MG PO QPM, (Reported) Pregabalin (Lyrica) 25 Mg Cap, 25 MG PO BID, (Reported) Risperidone (Risperidone) 1 Mg Tab, 1 MG PO BID, (Reported) Rivaroxaban (Xarelto) 15 Mg Tab, 15 MG PO QPM, (Reported) Scheduled PRN Acetaminophen (Acetaminophen) 325 Mg Tablet, 650 MG PO Q4H PRN for PAIN, (Reported) Nystatin (Nystatin Powder) 15 Gm Powder, 1 DOSE TOP DAILY PRN for RASH, (Reported) APPLY UNDER BREASTS Allergies Coded Allergies: Penicillins (Verified Allergy, Unknown, 03/21/19) erythromycin base (Verified Allergy, Unknown, 03/21/19) shellfish derived (Verified Allergy, Unknown, 03/21/19) amoxicillin (Verified Adverse Reaction, Unknown, vomiting, 03/21/19) PILI BEAUCHAMP MD Mar 24, 2019 15:06
--- NOTE | 2019-03-26 23:16 | ECHO ---
DATE OF PROCEDURE: 03/24/2019 REFERRING PHYSICIAN: Barrie Guzman MD INDICATION: Acute stroke. HEIGHT: 168 cm WEIGHT: 95 kg 2D MEASUREMENTS: Aortic root: 2.5 cm Left atrium: 3.1 cm LVOT: 2.0 cm Ventricular septum: 1.13 cm Posterior wall: 1.00 cm Left ventricle diastole: 3.3 cm Inferior vena cava: 1.6 cm (more than 50% respiratory variation) DOPPLER MEASUREMENTS: Aortic valve velocity: 114 cm/s LVOT velocity: 112 cm/s Mitral E velocity: 49.9 cm/s Mitral A velocity: 78.5 cm/s Mitral deceleration time: 204 ms Very mild tricuspid regurgitation. MITRAL ANNULAR TISSUE DOPPLER: E prime lateral: 7.3 cm/s E prime septal: 6.6 cm/s DESCRIPTION: Rhythm was sinus. Image quality was fair. No pericardial effusion. This was a 2D, M-mode, color flow Doppler and pulse wave Doppler examination that included mitral annular tissue Doppler. CONCLUSIONS: 1. Normal left ventricle size and wall thickness. Normal left ventricle (LV) systolic function and regional wall motion. Left ventricular ejection fraction (LVEF) of 75% by visual estimate. Grade 1 LV diastolic dysfunction (impaired relaxation filling pattern). 2. Mild-moderate aortic valve sclerosis of a three-cuspid aortic valve. No aortic stenosis or regurgitation. 3. Mild mitral annular calcification. No mitral regurgitation. 4. Otherwise normal appearing echocardiogram Doppler findings.
== END 2019-03-24 15:27 | disposition home health service (06) | DRG 66 ==
LOC: M ED 21:53 → M ED INP 03-22 00:31 → M MSPAV 03-22 02:58
PROVIDERS: ADMIT Internal Medicine; ATTEND Internal Medicine
DX: I63.9 Cerebral infarction, unspecified (principal); F03.90 Unspecified dementia, unspecified severity, without behavioral disturbance, psychotic disturbance, mood disturbance, and anxiety; E11.42 Type 2 diabetes mellitus with diabetic polyneuropathy; F31.9 Bipolar disorder, unspecified; I48.91 Unspecified atrial fibrillation; G24.01 Drug induced subacute dyskinesia; R13.10 Dysphagia, unspecified; R47.1 Dysarthria and anarthria; Z79.4 Long term (current) use of insulin; Z79.01 Long term (current) use of anticoagulants; Z79.899 Other long term (current) drug therapy; Z88.0 Allergy status to penicillin; Z88.1 Allergy status to other antibiotic agents; Z91.013 Allergy to seafood; Z86.79 Personal history of other diseases of the circulatory system

== ENCOUNTER → 2019-04-10 | Outpatient (REF) | payer MEDICARE, MEDICAID ==
[~2019-04-10] MED LIST changes: +ACET-908 PO; +ASPI81TAEC PO; +ATOR1TAB21 PO; +BASA100I SC; +INSUH10VL SC; +NYST1POW9 TOP
[2019-04-10 20:13] LABS: CALCIUM LEVEL 10.2 MG/DL (8.8-10.2); CREATININE FOR GFR 1.27 MG/DL (0.55-1.30); GLOMERULAR FILTRATION RATE 45.1 (>45); POTASSIUM SERUM 4.3 MEQ/L (3.5-5.1)
== END ==
LOC: M SFHCLERA 15:30
PROVIDERS: ATTEND Family Medicine
DX: I10 Essential (primary) hypertension (principal)
CPT/HCPCS: 80048; G0463

== ENCOUNTER → 2019-06-23 | Outpatient (REF) | payer MEDICARE, MEDICAID ==
[~2019-06-23] MED LIST changes: -OMEP1CAP73 PO; +OMEP20CA4 PO
[2019-06-23 17:24] LABS: CALCIUM LEVEL 10.2 MG/DL (8.8-10.2); CREATININE FOR GFR 1.63 MG/DL (0.55-1.30); GLOMERULAR FILTRATION RATE 33.8 (>45); POTASSIUM SERUM 4.3 MEQ/L (3.5-5.1)
[2019-06-23 17:31] LABS: HEMOGLOBIN A1c 8.4 %
== END ==
LOC: M SFHCLERA 11:46
PROVIDERS: ATTEND Family Medicine
DX: N18.9 Chronic kidney disease, unspecified (principal); E08.610 Diabetes mellitus due to underlying condition with diabetic neuropathic arthropathy; Z23 Encounter for immunization
CPT/HCPCS: 80048; 83036; 90472; 90682; 90715; G0008; G0463

== ENCOUNTER 2019-12-15 15:01 | Emergency (ER) | payer MEDICAID, MEDICARE ==
[~2019-12-15] VITALS: Ht 170.2 cm; Wt 100.0 kg
[~2019-12-15 15:01] MED LIST changes: -FLUO20CA19 PO; +FLUO20CA22 PO; -MONT10TA2 PO; +MONT10TA4 PO; +OMEP1CAP73 PO; -OMEP20CA4 PO
[2019-12-15] MEDS ORDERED: NS 1,000 ML IV ONE (15:15)
[2019-12-15 17:26] LABS: BASO # 0.1 10^3/uL (0.0-0.2); BASO % 0.5 % (0.0-1.0); HEMATOCRIT 47.8 % (36.0-47.0); LYMPH # 0.9 10^3/uL (1.5-5.0); LYMPH % 6.5 % (24.0-44.0); MEAN CORPUSCULAR HEMOGLOBIN 31.3 pg (27.0-33.0); MEAN CORPUSCULAR HGB CONC 33.5 g/dl (32.0-36.5); MEAN CORPUSCULAR VOLUME 93.5 fl (80.0-96.0); MONO # 0.9 10^3/uL (0.0-0.8); MONO % 6.3 % (0.0-5.0); NEUTROPHILS # 11.9 10^3/uL (1.5-8.5); NEUTROPHILS % 86.3 % (36.0-66.0); PLATELET COUNT, AUTOMATED 289 10^3/uL (150-450); RED BLOOD COUNT 5.11 10^6/uL (4.00-5.40); WHITE BLOOD COUNT 13.8 10^3/uL (4.0-10.0)
[2019-12-15 17:31] LABS: ALBUMIN 3.7 GM/DL (3.2-5.2); BILIRUBIN,DIRECT 0.2 MG/DL (0.0-0.2); BILIRUBIN,TOTAL 0.6 MG/DL (0.2-1.0); MAGNESIUM LEVEL 2.1 MG/DL (1.8-2.4); PHOSPHORUS LEVEL 2.4 MG/DL (2.5-4.9); TOTAL PROTEIN 7.7 GM/DL (6.4-8.2)
[2019-12-15 17:36] LABS: ACETONE/KETONE 2.33 MG/DL (<2.81)
[2019-12-15 18:02] LABS: HEMOGLOBIN A1c 10.4 %
[2019-12-15 18:11] LABS: CALCIUM LEVEL 11.1 MG/DL (8.8-10.2); CREATININE FOR GFR 1.21 MG/DL (0.55-1.30); GLOMERULAR FILTRATION RATE 47.5 (>45)
[2019-12-15] MEDS ORDERED: PANTOPRAZOLE 40MG INJ (PROTONIX) (C9113) IV ONE (18:15)
[2019-12-15] MEDS ORDERED: ISOVUE-370 76% 100ML VIAL (Q9967) As Ordered ONE (18:40)
--- NOTE | 2019-12-15 19:07 | REPVR ---
PROCEDURE INFORMATION: Exam: CT Abdomen And Pelvis With Contrast Exam date and time: 12/15/2019 6:38 PM Age: 64 years old Clinical indication: Abdominal pain; Generalized; Additional info: Central abdominal pain, dyspepsia TECHNIQUE: Imaging protocol: Computed tomography of the abdomen and pelvis with intravenous contrast. Axial, coronal and sagittal reformatted images were created and reviewed. Radiation optimization: All CT scans at this facility use at least one of these dose optimization techniques: automated exposure control; mA and/or kV adjustment per patient size (includes targeted exams where dose is matched to clinical indication); or iterative reconstruction. Contrast material: ISOVUE 370; Contrast volume: 100 ml; Contrast route: IV; COMPARISON: GALLBLADDER US 01/18/2017 4:52 AM FINDINGS: Mediastinum: Small hiatal hernia. Liver: Unremarkable. Gallbladder and bile ducts: Cholelithiasis and mild to moderate gallbladder distention. Pancreas: Unremarkable. Spleen: Unremarkable. Adrenals: Unremarkable. Kidneys and ureters: 6 mm low-density right renal lesion, too small to characterize. No radiodense calculi. No hydronephrosis. Stomach and bowel: Colonic diverticulosis without evidence of diverticulitis. No obstruction. No bowel wall thickening. No pneumatosis. Appendix: Normal. Intraperitoneal space: No free fluid. No organized fluid collection. No free air. Vasculature: Unremarkable. No aneurysm. Lymph nodes: No pathologically enlarged lymph nodes. Bladder: Unremarkable. Reproductive: Unremarkable. Bones/joints: No acute osseous abnormality. Osteopenia. Degenerative changes. Soft tissues: Tiny, fat containing umbilical hernia. IMPRESSION: 1. Cholelithiasis and mild to moderate gallbladder distention. If clinically indicated, ultrasound or HIDA scan would provide a more sensitive evaluation for acute gallbladder pathology. 2. Additional findings, as above. COMMENTS: Consistent with the [employer]'s Incidental Findings Committee white paper (J Am Benito Radiol 2018): Any incidental cystic renal lesion classified in this report as too small to characterize or simple appearing is likely a benign cyst. No follow-up imaging is recommended for these lesions per consensus recommendations based on imaging criteria. Electronically signed by: Bib Herrera On 12/15/2019 19:06:36 PM
[2019-12-15] MEDS ORDERED: ACETAMINOPHEN 325 MG TAB PO ONE (19:30)
[2019-12-15] MEDS ORDERED: traMADol 50 MG TAB PO ONE (19:30)
[2019-12-15] MEDS ORDERED: SUCRALFATE SUSP 1GM/10ML UD PO ONE (19:30)
[2019-12-15] MEDS ORDERED: CIPROFLOXACIN 400 MG in IV 1 EA IV ONE (19:45)
[2019-12-15] MEDS ORDERED: metroNIDAZOLE 500 MG in IV 1 EA IV ONE (19:45)
[2019-12-15] MEDS ORDERED: traMADol 50 MG TAB (BULK 4 TAB ED) PO ONE (21:30)
[2019-12-15 21:48] VITALS: BP 164/84
--- NOTE | 2019-12-16 12:05 | ED PDOC ---
Post-Departure Follow-Up dr banks and dr france faxed formal report of ct abd;/p for fu Harley Cheng MD Dec 16, 2019 12:05
== END 2019-12-15 21:53 | disposition home or self-care (01) ==
LOC: EDUNIT# 15:01 → EDBD 15:01 → M ED 15:01
DX: K80.10 Calculus of gallbladder with chronic cholecystitis without obstruction (principal); I11.0 Hypertensive heart disease with heart failure; I50.9 Heart failure, unspecified; J44.9 Chronic obstructive pulmonary disease, unspecified; N18.9 Chronic kidney disease, unspecified; I48.91 Unspecified atrial fibrillation; G62.9 Polyneuropathy, unspecified; E78.5 Hyperlipidemia, unspecified; K21.9 Gastro-esophageal reflux disease without esophagitis; Z79.899 Other long term (current) drug therapy; Z79.82 Long term (current) use of aspirin; Z79.4 Long term (current) use of insulin; Z79.01 Long term (current) use of anticoagulants; Z88.0 Allergy status to penicillin; Z88.1 Allergy status to other antibiotic agents; Z91.018 Allergy to other foods
CPT/HCPCS: 74177; 80048; 80076; 81001; 82010; 83036; 83690; 83735; 83930; 84100; 85025; 87086; 96361; 96365; 96368; 96375; 99284; C9113; J0744; Q9967

== ENCOUNTER 2019-12-18 10:03 | Inpatient (IN) | payer MEDICAID, MEDICARE ==
[2019-12-18] MEDS ORDERED: ONDANSETRON 4MG/2ML VIAL IV ONE (10:15)
[2019-12-18] MEDS ORDERED: NS 1,000 ML IV SCH (10:15)
[2019-12-18] MEDS ORDERED: MORPHINE 2 MG/ML 1ML VIAL (J2270) IV ONE (10:30)
[2019-12-18 11:18] LABS: BASO # 0.1 10^3/uL (0.0-0.2); BASO % 0.5 % (0.0-1.0); HEMATOCRIT 44.5 % (36.0-47.0); LYMPH # 0.5 10^3/uL (1.5-5.0); LYMPH % 3.5 % (24.0-44.0); MEAN CORPUSCULAR HEMOGLOBIN 31.8 pg (27.0-33.0); MEAN CORPUSCULAR HGB CONC 33.7 g/dl (32.0-36.5); MEAN CORPUSCULAR VOLUME 94.3 fl (80.0-96.0); MONO # 0.3 10^3/uL (0.0-0.8); MONO % 2.3 % (0.0-5.0); NEUTROPHILS % 93.1 % (36.0-66.0); PLATELET COUNT, AUTOMATED 318 10^3/uL (150-450); RED BLOOD COUNT 4.72 10^6/uL (4.00-5.40); WHITE BLOOD COUNT 12.8 10^3/uL (4.0-10.0)
[2019-12-18 11:50] LABS: ALBUMIN 3.2 GM/DL (3.2-5.2); BILIRUBIN,DIRECT 0.1 MG/DL (0.0-0.2); BILIRUBIN,TOTAL 0.8 MG/DL (0.2-1.0); CALCIUM LEVEL 9.7 MG/DL (8.8-10.2); CREATININE FOR GFR 1.53 MG/DL (0.55-1.30); GLOMERULAR FILTRATION RATE 36.3 (>45); POTASSIUM SERUM 5.1 MEQ/L (3.5-5.1); TOTAL PROTEIN 8.5 GM/DL (6.4-8.2)
--- NOTE | 2019-12-18 12:10 | REP ---
REASON: Right upper quadrant pain. COMPARISON: 01/18/2017 Multiple ultrasonographic images of the liver show the hepatic parenchymal echo pattern to be within normal limits. There is no evidence of intrahepatic ductal dilation. The common bile duct measures 9 mm in its greatest dimension. Multiple ultrasonographic image of the gallbladder show gallbladder wall thickening measuring between 3 and 4 mm. There is no pericholecystic edema. Gravel-like echogenic foci are seen in the dependent portion of the gallbladder but no definite acoustic shadowing is identifiable. The images portion of the right kidney is essentially unchanged from the prior exam. Tiny echogenic foci are seen but in a somewhat linear fashion consistent with vascular calcifications. The appearance of this is essentially unchanged compared to the prior exam. There is no hydronephrosis. The images portion of the pancreas is within normal limits. IMPRESSION: 1. There is debris in the gallbladder lumen which is suggestive of either dense sludge or gravel-like non-shadowing choleliths. 2. Abnormal gallbladder wall thickening without pericholecystic edema suggestive of chronic disease. The technologist has not written on the worksheet that the patient experienced a sonographic Alejandre's sign. No definite evidence of cholecystitis is seen ultrasonographically today. 3. There is mild common bile duct dilatation. Followup is suggested. Exact etiology uncertain. Electronically Signed by Grant Koch DO 12/18/2019 12:15 P
[2019-12-18] MEDS: NS 0.45% 1,000 ML IV SCH (13:58)
[2019-12-18] MEDS ORDERED: GLUCAGON INJ 1MG VIAL SC PRN (14:00)
[2019-12-18] MEDS ORDERED: **hydrALAZINE** 10 MG TAB PO PRN (14:00)
[2019-12-18] MEDS ORDERED: DEXTROSE 50% 50 ML SYRINGE IV PRN (14:00)
[2019-12-18] MEDS ORDERED: GLUCOSE 4GM CHEW TABLET PO PRN (14:00)
--- NOTE | 2019-12-18 14:06 | HPEPDOC ---
General Date of Admission Date of Service: Dec 18, 2019 Primary Care Physician: MIGUEL ONOFRE DO Chief Complaint The patient is a 64-year-old female admitted with a reason for visit of Abd Pain. Source: Patient, RN/MD, RN notes reviewed, EMS notes reviewed Exam Limitations: Dementia Timing/Duration: Unsure Severity: Other (unsure) Associated Symptoms: Nausea, Vomiting History of Present Illness This is a 64 years old white female with past medical history of diabetes mellitus, peripheral neuropathy of diabetes. Is status post and tubal ligation, status post clipping of brain aneurysm, bipolar disorder, depression, atrial fibrillation on anticoagulation, and dementia was seen in the ED second time with chief complaints of nausea, vomiting and abdominal pain. On her first visit on December 14. She was diagnosed with cholelithiasis with mild gallbladder distention and was discharged home to follow-up as an outpatient with surgery, but patient again presented today with complaining of right upper quadrant pain and vomiting. Patient has advanced dementia very poor historian. History was obtained from [facility] old records were reviewed EMS records also reviewed. Patient responded some portion, but otherwise she does not remember. When I ask about th e intensity and duration of the pain and radiation, timing ,factors modifying either worsening or improving the pain, patient is unable to explain it to me secondary to advanced dementia., But she does explain that she had a vomiting today. Home Medications Scheduled Aspirin (Aspirin EC) 81 Mg Tablet.dr, 81 MG PO QAM Atorvastatin Calcium (Atorvastatin Calcium) 20 Mg Tablet, 20 MG PO QPM, (Reported) Fluoxetine HCl (Prozac) 40 Mg Cap, 40 MG PO QPM, (Reported) Insulin Glargine,Hum.rec.anlog (Basaglar Kwikpen U-100) 100 Unit/1 Ml Insuln.pen, 60 UNITS SC QPM, (Reported) Insulin Human Lispro (Novolog) 100 Unit/1 Ml Vial, 15 UNITS SC TID, (Reported) Pregabalin (Lyrica) 25 Mg Cap, 25 MG PO BID, (Reported) Risperidone (Risperidone) 1 Mg Tab, 1 MG PO BID, (Reported) Rivaroxaban (Xarelto) 15 Mg Tab, 15 MG PO QPM, (Reported) Scheduled PRN Acetaminophen (Acetaminophen) 325 Mg Tablet, 650 MG PO Q4H PRN for PAIN, (Reported) Nystatin (Nystatin Powder) 15 Gm Powder, 1 DOSE TOP DAILY PRN for RASH, (Reported) APPLY UNDER BREASTS Allergies Coded Allergies: Penicillins (Verified Allergy, Unknown, 03/21/19) erythromycin base (Verified Allergy, Unknown, 03/21/19) shellfish derived (Verified Allergy, Unknown, 03/21/19) amoxicillin (Verified Adverse Reaction, Mild, vomiting, 12/15/19) Past Medical History Medical History Diabetes mellitus, peripheral neuropathy, status post brain aneurysm clipping, bipolar disorder, manic depressive illness, atrial fibrillation and dementia Surgical History Status post 2. Bartholin's gland surgery and tubal ligation Family History Unable to obtain history. Secondary to patient's mental status Social History * Smoker: Denies Alcohol: Denies Drugs: denies A-FIB/CHADSVASC A-FIB History Current/History of A-Fib/PAF?: Yes Current PO Anticoag Therapy: Yes Review of Systems Constitutional: Reports: Other (unable to obtained review of systems secondary to advanced dementia) Physical Examination General Exam: Positive: Alert, Cooperative Eye Exam: Positive: PERRLA, Conjunctiva & lids normal ENT Exam: Positive: Atraumatic, Mucous membr. moist/pink Neck Exam: Positive: Supple Chest Exam: Positive: Clear to auscultation, Normal air movement Heart Exam: Positive: Rate Normal, Normal S2 Abdomen Exam: Positive: Normal bowel sounds, Soft, Other (, mild tenderness at the right upper quadrant under the rib cage on inspiration) Extremity Exam: Positive: Normal pulses Skin Exam: Positive: Nl turgor and temperature Neuro Exam: Positive: Strength at 5/5 X4 ext, Sensation Intact, Cranial Nerves 3-12 NL Psych Exam: Positive: Mood NL, Other (advanced dementia) Vital Signs Vital Signs Date Time Temp Pulse Resp B/P (MAP) Pulse Ox O2 Delivery O2 Flow Rate FiO2 12/18/19 13:33 98 99 12/18/19 13:30 204/88 (126) 12/18/19 12:29 97.0 18 Room Air Laboratory Data Labs 24H Laboratory Tests 2 12/18/19 11:01: Anion Gap 10, Glomerular Filtration Rate 36.3L, Calcium Level 9.7, Total Bilirubin 0.8, Direct Bilirubin 0.1, Aspartate Amino Transf (AST/SGOT) 23, Alanine Aminotransferase (ALT/SGPT) 14, Alkaline Phosphatase 115, Total Protein 8.5H, Albumin 3.2, Albumin/Globulin Ratio 0.60L, Lipase 50L 12/18/19 11:02: Immature Granulocyte % (Auto) 0.6, Neutrophils (%) (Auto) 93.1H, Lymphocytes (%) (Auto) 3.5L, Monocytes (%) (Auto) 2.3, Eosinophils (%) (Auto) 0.0, Basophils (%) (Auto) 0.5, Neutrophils # (Auto) 12.0H, Lymphocytes # (Auto) 0.5L, Monocytes # (Auto) 0.3, Eosinophils # (Auto) 0.0, Basophils # (Auto) 0.1, Nucleated Red Blood Cells % (auto) 0.0 CBC/BMP Laboratory Tests 12/18/19 11:01 12/18/19 11:02 Problems (1) Cholelithiasis with acute cholecystitis Status: Acute Problem Text: This is a 64 years old white lady with advanced dementia. History of atrial fibrillation on anticoagulation with Xarelto presented with abdominal pain with nausea, vomiting. Patient was seen in ED and apical [address] which showed cholelithiasis and mild to moderate gallbladder distention and the ultrasound or HIDA scan was recommended for further investigation. Patient today presented again with the vomiting and abdominal pain. Patient's white count is 12.8, hemoglobin 15, hematocrit 44.5, platelets 318. Electrolytes are normal. BUN is 21, creatinine of 1.53 and blood sugar is 463, lipase of 50, patient's gallbladder sonogram shows sludge in gallbladder, mild CBD dietitian gallbladder wall thickening and headache, cholecystectomy, edema. Patient was seen by Dr. Levin in ED and he is planning to possibly taken patients to the OR as per Dr. quarles. Admit patient to [facility] floor Change IV fluids to half-normal saline 75 mL per hour secondary to elevated blood pressure Start Invanz 1 g IV every 24 hours as patient is allergic to penicillin, amoxicillin Zofran and morphine when necessary for symptom control Nothing by mouth except ice chips and medications Will hold Xarelto and for DVT prophylaxis, will start her on bilateral SCDs Activity as tolerated Further recommendations as per surgery (2) A-fib Status: Acute Problem Text: Patient would benefit admitted to [facility] with telemetry , Regular rate is under well control Continue home meds except anticoagulation (3) Dementia Status: Chronic Problem Text: Continue home meds and supportive care (4) Diabetes mellitus Status: Chronic Problem Text: Fingerstick blood sugar every 6 hours with coverage Hold the by mouth antidiabetic meds (5) HTN (hypertension) Status: Acute Problem Text: No history of hypertension in the past. The patient's blood pressure is elevated on admission, most likely secondary to pain and infection Was started. Hydralazine 10 mg by mouth every 6 hours when necessary for systolic blood pressure more than 150 as needed Plan / VTE VTE Prophylaxis Ordered?: Yes DEN LEMA MD Dec 18, 2019 14:05
[2019-12-18 14:24] LABS: INR 1.17; PROTHROMBIN TIME 14.6 SECONDS (11.8-14.0)
[2019-12-18] MEDS: MORPHINE 2 MG/ML 1ML VIAL (J2270) IV PRN (15:04)
--- NOTE | 2019-12-18 15:06 | REP ---
CHEST, SINGLE VIEW: There is no evidence of acute infiltrate. No pleural effusion is seen. The heart is normal in size. The mediastinal silhouette is unremarkable. The visualized osseous structures are intact. IMPRESSION: No acute pulmonary disease. Electronically Signed by Dany Downey MD 12/18/2019 03:48 P
[2019-12-18 15:45] VITALS: BP 190/110
[2019-12-18] MEDS: PANTOPRAZOLE 40MG VIAL (C9113 PER 1) IV SCH (16:29)
[2019-12-18] MEDS: ONDANSETRON 4MG/2ML VIAL IV PRN (16:30)
[2019-12-18] MEDS: ERTAPENEM SODIUM 1 GM in NS MINI-BAG PLUS 50 ML IV SCH (16:43)
[2019-12-18 17:00] VITALS: BP 162/112
[2019-12-18] MEDS ORDERED: HumaLOG INSULIN (NovoLOG) PER UNIT SC SCH (17:30)
[2019-12-18] MEDS ORDERED: MED REC COMMENT (18:18)
[2019-12-18] MEDS: HumaLOG INSULIN (NovoLOG) PER UNIT SC SCH (18:55)
[2019-12-18 19:30] VITALS: BP 150/84
[2019-12-18 22:00] VITALS: BP 150/84
[2019-12-18] MEDS ORDERED: LOSA50TA88 PO (22:31)
[2019-12-19] MEDS: HumaLOG INSULIN (NovoLOG) PER UNIT SC SCH ×5 (00:23→21:12)
--- NOTE | 2019-12-19 00:23 | CR ---
DATE OF CONSULTATION: 12/18/2019 Consultation is done for the emergency department DIAGNOSIS AND REASON FOR CONSULTATION: Cholelithiasis with acute cholecystitis. HISTORY OF THE PRESENT ILLNESS: The patient is a 64-year-old woman who presented to the emergency department complaining of abdominal pain. She had been seen in the emergency department 3 days earlier also for abdominal pain. On that occasion, she had a CT scan of the abdomen and pelvis that identified cholelithiasis and a distended gallbladder. On 12/15/2019, her white blood cell count was elevated to 14,000 with a differential showing 86% neutrophils. She was diagnosed with cholelithiasis with acute cholecystitis and was discharged home to follow up in the office. She apparently was not treated with antibiotics. She presented on 12/18/2019, again complaining of upper abdominal pain. She was found to have a white count still of 13,000 with 93% neutrophils. She had an ultrasound of the gallbladder that revealed some debris in the gallbladder lumen with some abnormal gallbladder wall thickening. There was a suggestion of some mild common bile duct dilation. I was consulted, and the patient was found to have some tenderness in the right subcostal area. Her history seems consistent with acute cholecystitis secondary to cholelithiasis. However, she has been on Xarelto for reasons that are not entirely clear to me. She apparently has a history of deep vein thrombosis (DVT), as well as a history of atrial fibrillation. Her blood sugars are clearly out of control with a glucose today of 463. She also is hypertensive in the emergency department. I therefore think that admission to the hospital is prudent and have recommended that she be admitted by the hospitalist for optimization of her medical condition. I would recommend that she have her gallbladder out during this hospital stay once she is medically optimized. ALLERGIES: The patient reports allergies to PENICILLIN, AMOXICILLIN, ERYTHROMYCIN and SHELLFISH. MEDICATIONS: Her medications prior to presentation include Tylenol as needed, atorvastatin 20 mg daily, Prozac 40 mg by mouth daily, insulin Basaglar/glargine insulin 60 units subcu every evening, NovoLog insulin 15 units three times daily, losartan 50 mg by mouth daily, Nystatin to her inframammary fold rash, Lyrica 25 mg by mouth twice daily, risperidone 1 mg by mouth twice daily, Xarelto 15 mg daily. SURGICAL HISTORY: The patient reports two prior sections. She has had a tubal ligation. She reportedly had some sort of surgery for a brain aneurysm. This was at least 6-7 years ago. MEDICAL HISTORY: Her medical history is significant for diabetes. She had a recent hemoglobin A1c that was approximately 10. She has a history of peripheral neuropathy. She has some dementia. She has a history of bipolar disorder and depression. She has atrial fibrillation. FAMILY HISTORY: Noncontributory. SOCIAL HISTORY: She is not a current smoker and denies any alcohol use. REVIEW OF SYSTEMS: Shows that she is not complaining of any chest pain. Her reporting of her history is suspect. She reported to me that she had just recently moved up from [place] to live with her daughter and says this happened a few months ago, but she has clearly been living in the area for at least 3-4 years based on her hospital records. She is not complaining of any chest pain or headache. She denies any history of seizures. Does report that she has had abdominal pain and also reports some nausea. She is not complaining of dysuria or hematuria. PHYSICAL EXAM: Reveals a woman appearing older than her stated age of 64 years. She is lying quietly on the hospital stretcher. Skin is warm and dry. Sclerae are anicteric. She is alert but not oriented fully. She is appropriate, but there are some things she just admits she does not know. Her neck is without palpable mass and she has no bruit. Heart: Exam shows a regular rhythm with an occasional irregular beat. The lungs are clear to auscultation. The abdomen is somewhat obese. She has an old low midline scar consistent with a section (). There is no sign of hernia. She does have some bowel sounds present. The abdomen is soft, and she has some mild direct tenderness in the lateral aspect of the right subcostal area. I do not feel a mass. She has palpable radial and posterior tibial pulses bilaterally, and I do not detect any significant pedal edema. Her laboratory studies today include a white count of 13,000 with a hemoglobin of 15, hematocrit 44, and a platelet count of 318,000. Differential shows a 95% neutrophil count with 3.5% lymphocytes and 2% monocytes. Chemistry profile showed a sodium of 129, potassium 5.1, chloride 98, CO2 of 21, BUN of 21, creatinine 1.5 and a glucose of 463. Liver function tests are normal with a total protein of 8.5, albumin 3.2, and her lipase was normal at 50. She had coags, which showed a PT of 14.6 and an INR of 1.17. She had a chest x-ray that revealed no infiltrate or effusion. There was no evidence of acute pulmonary disease. She had a gallbladder ultrasound that as noted previously showed some gallbladder wall thickening with some sludge or small stones in the gallbladder. She had a CT scan from the that showed a distended gallbladder with stones. IMPRESSION: 1. Cholelithiasis with acute cholecystitis. 2. Diabetes mellitus, poorly controlled. 3. Hypertension. 4. History of atrial fibrillation. 5. History of bipolar disorder with depression. 6. Dementia. RECOMMENDATIONS: I believe the patient ought to have a cholecystectomy during this hospital stay. I suspect that her acute cholecystitis is a factor certainly in her worsened management of her diabetes and possibly a factor in her hypertension. Unfortunately, she has been on anticoagulation and has some medical issues that could be optimized prior to her surgery. I would recommend treating her appropriately with antibiotics while her blood sugars are addressed and her blood pressure controlled. Her Xarelto we will just have to wait for this to wear off. When she is felt to be in the best of condition possible in a relatively short period of time, a laparoscopic cholecystectomy would be appropriate. DIRK
[2019-12-19] MEDS: NS 0.45% 1,000 ML IV SCH (03:52)
[2019-12-19] MEDS: ONDANSETRON 4MG/2ML VIAL IV PRN ×2 (03:56→12:39)
[2019-12-19 05:40] LABS: HEMOGLOBIN 14.8 g/dl (12.0-15.5); MEAN CORPUSCULAR HEMOGLOBIN 31.7 pg (27.0-33.0); MEAN CORPUSCULAR HGB CONC 33.6 g/dl (32.0-36.5); MEAN CORPUSCULAR VOLUME 94.2 fl (80.0-96.0); PLATELET COUNT, AUTOMATED 359 10^3/uL (150-450); RED BLOOD COUNT 4.67 10^6/uL (4.00-5.40); WHITE BLOOD COUNT 15.7 10^3/uL (4.0-10.0)
[2019-12-19 06:00] VITALS: BP 146/80
[2019-12-19 06:14] LABS: BILIRUBIN,TOTAL 0.6 MG/DL (0.2-1.0); CREATININE FOR GFR 1.07 MG/DL (0.55-1.30); GLOMERULAR FILTRATION RATE 54.8 (>45); POTASSIUM SERUM 3.6 MEQ/L (3.5-5.1); TOTAL PROTEIN 6.9 GM/DL (6.4-8.2)
[2019-12-19] MEDS ORDERED: NYSTATIN 100,000 UNITS/GM TOPICAL PWD 15 GM TOP PRN (07:30)
[2019-12-19] MEDS: risperiDONE 1 MG TAB PO SCH ×2 (08:09→21:11)
[2019-12-19] MEDS: FLUoxetine 20 MG CAP PO SCH (08:09)
[2019-12-19] MEDS: ATORVASTATIN 20 MG TAB PO SCH (08:09)
[2019-12-19] MEDS: PANTOPRAZOLE 40MG VIAL (C9113 PER 1) IV SCH (08:09)
[2019-12-19] MEDS: PREGABALIN 25 MG CAP (LYRICA) PO SCH ×2 (08:09→21:10)
[2019-12-19] MEDS: LOSARTAN 50MG TABLET PO SCH (08:18)
[2019-12-19] MEDS: ACETAMINOPHEN TAB 650MG DOSE (2X325MG) PO PRN (08:28)
[2019-12-19] MEDS ORDERED: RIVAROXABAN 15 MG TAB (XARELTO) PO SCH (09:00)
[2019-12-19] MEDS: MORPHINE 2 MG/ML 1ML VIAL (J2270) IV PRN ×2 (10:23→15:46)
--- NOTE | 2019-12-19 10:30 | ECGEPIP ---
[facility] Test Date: 2019-12-18 Pat Name: GAL COOMBS Department: Room: [place] [address] Gender: Female Audience Coordinator: AZAR : 1955 Requested By: DEN LEMA Order Number: [id number] Reading MD: Blair Jc Measurements Intervals [place] Rate: 98 P: 48 OH: 154 QRS: 1 QRSD: 101 T: 34 QT: 347 QTc: 445 Interpretive Statements SINUS RHYTHM WITH SINUS ARRHYTHMIA NONSPECIFIC ST & T-WAVE ABNORMALITY Baseline noise. Increased heart rate and no PVCs compared with 03/21/2019. Electronically Signed on 12-19-2019 10:30:24 EDT by Blair Jc
--- NOTE | 2019-12-19 12:11 | IPNPDOC ---
Subjective Date Seen The patient was seen on 12/19/19. Subjective Chief Complaint/HPI Still has some abdominal pain but no nausea, vomiting General: Denies: ROS Unobtainable, Chills, Night Sweats, Fatigue, Malaise, Normal Appetite, Other Symptoms Constitutional: Denies: Chills, Fever, Malaise, Night Sweats, Weakness, Fatigue, Weight Loss, Lethargy, Other Pulmonary: Denies: Dyspnea, Cough, Pleuritic Chest Pain, Other Symptoms Cardiovascular: Denies: Chest Pain, Palpitations, Orthopnea, Paroxysmal Noc. Dyspnea, Edema, Lt Headedness, Other Symptoms Gastrointestinal: Reports: Abdominal Pain; Denies: Nausea, Vomiting, Diarrhea, Constipation, Melena, Hematochezia, Other Symptoms Musculoskeletal: Denies: Neck Pain, Back Pain, Shoulder Pain, Arm Pain, Hand Pain, Leg Pain, Foot Pain, Joint Pain, Muscle Pain, Spasms, Other Symptoms Neurological: Denies: Weakness, Numbness, Incoordination, Change in speech, Confusion, Seizures, Other Symptoms Objective Physical Examination Eye Exam: Positive: PERRLA, Conjunctiva & lids normal ENT Exam: Positive: Atraumatic, Mucous membr. moist/pink Neck Exam: Positive: Supple Chest Exam: Positive: Clear to auscultation, Normal air movement Heart Exam: Positive: Rate Normal, Normal S2 Abdomen Exam: Positive: Normal bowel sounds, Soft, Other (minimal tenderness right upper quadrant on deep palpation) Extremity Exam: Positive: Normal pulses Skin Exam: Positive: Nl turgor and temperature Neuro Exam: Positive: Strength at 5/5 X4 ext, Sensation Intact, Cranial Nerves 3-12 NL Psych Exam: Positive: Mood NL, Other (advanced dementia) Assessment /Plan Problems (1) Cholelithiasis with acute cholecystitis Status: Acute Problem Text: Surgery consult appreciated Patient is slightly improved. No nausea, vomiting but still has abdominal pain Continue pain management with morphine and the Zofran for nausea, vomiting as needed DC IV fluids as patient as been restarted on oral feeding Continue IV antibiotics as per orders Anticoagulation on hold for a few days, then possibly will be taken to the OR f or laparoscopic cholecystectomy (2) HTN (hypertension) Status: Acute Problem Text: Continue home meds and hydralazine when necessary (3) Dementia Status: Chronic Problem Text: Continue home meds (4) Diabetes mellitus Status: Chronic Problem Text: Fingerstick blood sugar every before meals and at bedtime with coverage Continue home meds (5) A-fib Status: Acute Problem Text: Continue home meds Plan/VTE VTE Prophylaxis Ordered?: Yes VS, I&O, 24H, Fishbone Vital Signs/I&O Vital Signs Date Time Temp Pulse Resp B/P (MAP) Pulse Ox O2 Delivery O2 Flow Rate FiO2 12/19/19 10:33 17 12/19/19 08:18 170/80 12/19/19 06:00 98.7 92 98 Room Air I&O- Last 24 Hours up to 6 AM 12/19/19 06:00 Intake Total 975 ml Output Total 1250 ml Balance -275 ml Laboratory Data 24H LABS Laboratory Tests 2 12/18/19 18:32: Bedside Glucose (Misc Panel) 396H 12/19/19 00:16: Bedside Glucose (Misc Panel) 220H 12/19/19 05:20: Nucleated Red Blood Cells % (auto) 0.0, Anion Gap 9, Glomerular Filtration Rate 54.8, Calcium Level 10.0, Total Bilirubin 0.6, Aspartate Amino Transf (AST/SGOT) 7, Alanine Aminotransferase (ALT/SGPT) 10L, Alkaline Phosphatase 105, Total Protein 6.9, Albumin 3.0L, Albumin/Globulin Ratio 0.77L 12/19/19 05:39: Bedside Glucose (Misc Panel) 281H 12/19/19 11:35: Bedside Glucose (Misc Panel) 304H CBC/BMP Laboratory Tests 12/19/19 05:20 DEN LEMA MD Dec 19, 2019 12:11
[2019-12-19 14:00] VITALS: BP 118/73
[2019-12-19] MEDS: ERTAPENEM SODIUM 1 GM in NS MINI-BAG PLUS 50 ML IV SCH (15:46)
[2019-12-19] MEDS ORDERED: LEVEMIR (INSULIN DETEMIR) 1 UNITS/0.01ML SC SCH (21:00)
[2019-12-19 22:00] VITALS: BP 130/80
[2019-12-20 06:00] VITALS: BP 123/79
[2019-12-20 06:38] LABS: BASO # 0.1 10^3/uL (0.0-0.2); BASO % 0.5 % (0.0-1.0); EOS # 0.1 10^3/uL (0.0-0.5); EOS % 0.7 % (0.0-3.0); HEMATOCRIT 40.1 % (36.0-47.0); HEMOGLOBIN 13.8 g/dl (12.0-15.5); LYMPH # 1.6 10^3/uL (1.5-5.0); LYMPH % 11.9 % (24.0-44.0); MEAN CORPUSCULAR HEMOGLOBIN 32.5 pg (27.0-33.0); MEAN CORPUSCULAR HGB CONC 34.4 g/dl (32.0-36.5); MEAN CORPUSCULAR VOLUME 94.4 fl (80.0-96.0); MONO # 1.9 10^3/uL (0.0-0.8); MONO % 13.9 % (0.0-5.0); NEUTROPHILS # 9.8 10^3/uL (1.5-8.5); NEUTROPHILS % 72.5 % (36.0-66.0); PLATELET COUNT, AUTOMATED 310 10^3/uL (150-450); RED BLOOD COUNT 4.25 10^6/uL (4.00-5.40); WHITE BLOOD COUNT 13.6 10^3/uL (4.0-10.0)
[2019-12-20 06:56] LABS: ALBUMIN 2.5 GM/DL (3.2-5.2); BILIRUBIN,TOTAL 0.5 MG/DL (0.2-1.0); CALCIUM LEVEL 9.6 MG/DL (8.8-10.2); CREATININE FOR GFR 1.14 MG/DL (0.55-1.30); GLOMERULAR FILTRATION RATE 50.9 (>45); TOTAL PROTEIN 6.5 GM/DL (6.4-8.2)
[2019-12-20] MEDS: HumaLOG INSULIN (NovoLOG) PER UNIT SC SCH ×4 (07:09→21:46)
[2019-12-20] MEDS: PANTOPRAZOLE 40MG VIAL (C9113 PER 1) IV SCH (08:51)
[2019-12-20] MEDS: PREGABALIN 25 MG CAP (LYRICA) PO SCH ×2 (08:52→21:45)
[2019-12-20] MEDS: risperiDONE 1 MG TAB PO SCH ×2 (08:52→21:45)
[2019-12-20] MEDS: FLUoxetine 20 MG CAP PO SCH (08:52)
[2019-12-20] MEDS: ATORVASTATIN 20 MG TAB PO SCH (08:53)
[2019-12-20] MEDS: LOSARTAN 50MG TABLET PO SCH (08:53)
[2019-12-20] MEDS ORDERED: POTASSIUM CHLORIDE 10 MEQ SR TABLET PO ONE (09:00)
--- NOTE | 2019-12-20 09:57 | IPNPDOC ---
Subjective Date Seen The patient was seen on 12/20/19. Subjective Chief Complaint/HPI Patient is comfortable decreased abdominal pain. No more nausea, vomiting General: Denies: ROS Unobtainable, Chills, Night Sweats, Fatigue, Malaise, Normal Appetite, Other Symptoms Constitutional: Denies: Chills, Fever, Malaise, Night Sweats, Weakness, Fatigue, Weight Loss, Lethargy, Other Pulmonary: Denies: Dyspnea, Cough, Pleuritic Chest Pain, Other Symptoms Cardiovascular: Denies: Chest Pain, Palpitations, Orthopnea, Paroxysmal Noc. Dyspnea, Edema, Lt Headedness, Other Symptoms Gastrointestinal: Denies: Nausea, Vomiting, Abdominal Pain, Diarrhea, Constipation Musculoskeletal: Denies: Neck Pain, Back Pain, Shoulder Pain, Arm Pain, Hand Pain, Leg Pain, Foot Pain, Joint Pain, Muscle Pain, Spasms, Other Symptoms Neurological: Denies: Weakness, Numbness, Incoordination, Change in speech, Confusion, Seizures, Other Symptoms Objective Physical Examination Eye Exam: Positive: PERRLA, Conjunctiva & lids normal ENT Exam: Positive: Atraumatic, Mucous membr. moist/pink Neck Exam: Positive: Supple Chest Exam: Positive: Clear to auscultation, Normal air movement Heart Exam: Positive: Rate Normal, Normal S2 Abdomen Exam: Positive: Normal bowel sounds, Soft, Other (minimal tenderness right upper quadrant on deep palpation) Extremity Exam: Positive: Normal pulses Skin Exam: Positive: Nl turgor and temperature Neuro Exam: Positive: Strength at 5/5 X4 ext, Sensation Intact, Cranial Nerves 3-12 NL Psych Exam: Positive: Mood NL, Other (advanced dementia) Assessment /Plan Problems (1) Cholelithiasis with acute cholecystitis Status: Acute Problem Text: Surgery consult appreciated Patient is slightly improved. No nausea, vomiting but still has abdominal pain Continue pain management with morphine and the Zofran for nausea, vomiting as needed DC IV fluids as patient as been restarted on oral feeding Continue Invanz. Her WBC count has decreased to 13.6 now. Patient is asymptomatic Anticoagulation on hold. Surgical plans as per Dr. Levin (2) HTN (hypertension) Status: Acute Problem Text: Continue home meds and hydralazine when necessary (3) Dementia Status: Chronic Problem Text: Continue home meds (4) Diabetes mellitus Status: Chronic Problem Text: Fingerstick blood sugar every before meals and at bedtime with coverage Continue home meds (5) A-fib Status: Acute Problem Text: Continue home meds Plan/VTE VTE Prophylaxis Ordered?: Yes VS, I&O, 24H, Fishbone Vital Signs/I&O Vital Signs Date Time Temp Pulse Resp B/P (MAP) Pulse Ox O2 Delivery O2 Flow Rate FiO2 12/20/19 08:53 119/62 12/20/19 06:00 98.3 74 18 96 Room Air I&O- Last 24 Hours up to 6 AM 12/20/19 05:59 Intake Total 3360 ml Output Total 725 ml Balance 2635 ml Laboratory Data 24H LABS Laboratory Tests 2 12/19/19 11:35: Bedside Glucose (Misc Panel) 304H 12/19/19 16:47: Bedside Glucose (Misc Panel) 246H 12/19/19 20:29: Bedside Glucose (Misc Panel) 338H 12/20/19 06:05: Immature Granulocyte % (Auto) 0.5, Neutrophils (%) (Auto) 72.5H, Lymphocytes (%) (Auto) 11.9L, Monocytes (%) (Auto) 13.9H, Eosinophils (%) (Auto) 0.7, Basophils (%) (Auto) 0.5, Neutrophils # (Auto) 9.8H, Lymphocytes # (Auto) 1.6, Monocytes # (Auto) 1.9H, Eosinophils # (Auto) 0.1, Basophils # (Auto) 0.1, Nucleated Red Blood Cells % (auto) 0.0, Anion Gap 7L, Glomerular Filtration Rate 50.9, Calcium Level 9.6, Total Bilirubin 0.5, Aspartate Amino Transf (AST/SGOT) 6L, Alanine Aminotransferase (ALT/SGPT) 9L, Alkaline Phosphatase 92, Total Protein 6.5, Albu min 2.5L, Albumin/Globulin Ratio 0.63L 12/20/19 07:52: Bedside Glucose (Misc Panel) 101 CBC/BMP Laboratory Tests 12/20/19 06:05 DEN LEMA MD Dec 20, 2019 09:57
[2019-12-20] MEDS: MORPHINE 2 MG/ML 1ML VIAL (J2270) IV PRN (13:36)
[2019-12-20 14:00] VITALS: BP 112/62
--- NOTE | 2019-12-20 14:18 | IPN ---
DATE: The patient has been afebrile. Her white count is down a little bit today and is currently being hospitalized for acute cholecystitis. She has overall been stable and she has been on a diet and tolerating that diet. She is a frail 64-year-old who has had some chronic dementia issues, atrial fibrillation (AFib) and has been on some anticoagulation for this and they are waiting for these anticoagulations to diminish prior to proceeding with operative intervention. In any case the patient is stable today, is somewhat somnolent and is not receiving any additional pain medications here today. She had some yesterday. Yesterday afternoon was the latest that was given. In general, the patient is somnolent. Lungs are clear anteriorly. Abdomen is soft, mildly tender throughout the right side of her abdomen even all the way down to the iliac crest and medial to this without significant guarding, rebound or peritoneal signs. IMPRESSION/PLAN: The patient is currently being treated for acute cholecystitis and is to continue with current treatment. My recommendation is continue with current antibiotics and diet as ordered. Further evaluation with a HIDA scan could help identify whether she has true acute cholecystitis or whether this is truly chronic cholecystitis. Did not have a lot of acute inflammatory changes either on the CT scan or on the ultrasound and thus, further diagnostic tests could be performed. Although, I did discuss this with Dr. Levin and he suggest that he may just proceed with a laparoscopic cholecystectomy since no other etiology except the gallstones have been done at this time, which is a very reasonable next step as well. In any case, we will see how she is doing by tomorrow and would recommend continue current treatment.
[2019-12-20] MEDS: ERTAPENEM SODIUM 1 GM in NS MINI-BAG PLUS 50 ML IV SCH (14:49)
[2019-12-20] MEDS: LEVEMIR (INSULIN DETEMIR) 1 UNITS/0.01ML SC SCH (21:46)
[2019-12-20 22:00] VITALS: BP 111/63
[2019-12-21] MEDS: MORPHINE 2 MG/ML 1ML VIAL (J2270) IV PRN ×3 (02:50→16:57)
[2019-12-21 06:00] VITALS: BP 111/62
--- NOTE | 2019-12-21 06:42 | IPN ---
DATE: 12/19/2019 HISTORY: The patient was seen on 12/18/2019 with right upper quadrant pain and a gallbladder ultrasound showing sludge within the gallbladder with a thickened gallbladder wall. She had been in the emergency department several days earlier with right upper quadrant pain, at which time she had a CT scan that showed a distended gallbladder also with gallstones. She was admitted by the hospitalist service because of some other medical issues, including diabetes with poor glucose control with a glucose of approximately 460. She was also on Xarelto for a history of atrial fibrillation. She has some underlying dementia as well. I am satisfied with her workup that she has acute cholecystitis and believe that the best approach would be cholecystectomy. She had a slight elevation of her white count both on 12/15/2019 and then again on admission yesterday. Vital signs today show that she has been afebrile. Her pulse is in the 90s. Blood pressure was high at the time of admission but has been better controlled since then. Intake and output shows that yesterday she had 975 recorded in with 900 of urine output. PHYSICAL EXAMINATION: The patient looks a little more comfortable lying in her bed today. She is alert and responsive but still is unable to answer some questions about her history consistent with her history of dementia. Heart exam shows a regular rate and rhythm. Lungs are clear. The abdomen is mildly obese. She has some mild tenderness in the lateral aspect of the right upper quadrant and slightly below the edge of the costal margin. There is no palpable mass. Laboratory studies show that her white count has actually gone up from 13 at the time of admission to 16 today with a hemoglobin of 15, hematocrit 44 and a platelet count of 359,000. Chemistry profile shows sodium of 133, potassium 3.6, chloride 101, CO2 of 23, BUN of 17, creatinine 1.0, and a glucose of 254. IMPRESSION: Acute cholecystitis secondary to cholelithiasis. RECOMMENDATIONS: At this point, I think we have to wait at least another day to allow her Xarelto to wear off. She remains on antibiotics but her white blood cell count has gone up some today. She is also on a diet today, so surgery would not be possible even if her Xarelto were not a problem. I would recommend continuing to hold the Xarelto and continue the antibiotics. Hopefully, she will not start to show worsening signs of infection. I have spoken with Dr. Ellison, who will be covering for me this weekend, to advise him of my thoughts on this patient. He can certainly proceed with surgery if he deems this appropriate over the weekend. DIRK
[2019-12-21] MEDS: HumaLOG INSULIN (NovoLOG) PER UNIT SC SCH ×4 (07:29→20:21)
[2019-12-21 08:21] LABS: HEMATOCRIT 41.1 % (36.0-47.0); HEMOGLOBIN 13.9 g/dl (12.0-15.5); MEAN CORPUSCULAR HEMOGLOBIN 32.3 pg (27.0-33.0); MEAN CORPUSCULAR HGB CONC 33.8 g/dl (32.0-36.5); MEAN CORPUSCULAR VOLUME 95.4 fl (80.0-96.0); PLATELET COUNT, AUTOMATED 287 10^3/uL (150-450); RED BLOOD COUNT 4.31 10^6/uL (4.00-5.40); WHITE BLOOD COUNT 10.4 10^3/uL (4.0-10.0)
[2019-12-21] MEDS: PREGABALIN 25 MG CAP (LYRICA) PO SCH ×2 (08:43→20:40)
[2019-12-21] MEDS: risperiDONE 1 MG TAB PO SCH ×2 (08:44→20:40)
[2019-12-21] MEDS: FLUoxetine 20 MG CAP PO SCH (08:44)
[2019-12-21] MEDS: ATORVASTATIN 20 MG TAB PO SCH (08:44)
[2019-12-21] MEDS: PANTOPRAZOLE 40MG VIAL (C9113 PER 1) IV SCH (08:44)
[2019-12-21] MEDS: LOSARTAN 50MG TABLET PO SCH (08:45)
[2019-12-21 08:47] LABS: ALBUMIN 2.2 GM/DL (3.2-5.2); BILIRUBIN,TOTAL 0.3 MG/DL (0.2-1.0); CALCIUM LEVEL 9.1 MG/DL (8.8-10.2); CREATININE FOR GFR 1.21 MG/DL (0.55-1.30); GLOMERULAR FILTRATION RATE 47.5 (>45); POTASSIUM SERUM 3.4 MEQ/L (3.5-5.1); TOTAL PROTEIN 6.3 GM/DL (6.4-8.2)
--- NOTE | 2019-12-21 09:41 | IPNPDOC ---
Subjective Date Seen The patient was seen on 12/21/19. Subjective Chief Complaint/HPI Patient offers no complaints of nausea, vomiting or abdominal pain today General: Denies: ROS Unobtainable, Chills, Night Sweats, Fatigue, Malaise, Normal Appetite, Other Symptoms Constitutional: Denies: Chills, Fever, Malaise, Night Sweats, Weakness, Fatigue, Weight Loss, Lethargy, Other Pulmonary: Denies: Dyspnea, Cough, Pleuritic Chest Pain, Other Symptoms Cardiovascular: Denies: Chest Pain, Palpitations, Orthopnea, Paroxysmal Noc. Dyspnea, Edema, Lt Headedness, Other Symptoms Gastrointestinal: Denies: Nausea, Vomiting, Abdominal Pain, Diarrhea, Constipation, Melena, Hematochezia, Other Symptoms Musculoskeletal: Denies: Neck Pain, Back Pain, Shoulder Pain, Arm Pain, Hand Pain, Leg Pain, Foot Pain, Joint Pain, Muscle Pain, Spasms, Other Symptoms Neurological: Denies: Weakness, Numbness, Incoordination, Change in speech, Confusion, Seizures, Other Symptoms Objective Physical Examination Chest Exam: Positive: Clear to auscultation, Normal air movement Heart Exam: Positive: Rate Normal, Normal S2 Abdomen Exam: Positive: Normal bowel sounds, Soft, Other (minimal tenderness right upper quadrant on deep palpation) Extremity Exam: Positive: Normal pulses Skin Exam: Positive: Nl turgor and temperature Neuro Exam: Positive: Strength at 5/5 X4 ext, Sensation Intact, Cranial Nerves 3-12 NL Assessment /Plan Problems (1) Cholelithiasis with acute cholecystitis Status: Acute Problem Text: Surgery consult appreciated Patient is slightly improved. No nausea, vomiting but still has abdominal pain Continue pain management with morphine and the Zofran for nausea, vomiting as needed DC IV fluids as patient as been restarted on oral feeding Patient is clinically improving. She is asymptomatic today and physical examination is within normal limits Her WBC count is also progressively decreasing with IV antibiotics Continue IV antibiotics and follow lab work in a.m. Discussed with Dr. Ellison, he will probably order a HIDA scan to confirm diagnosis before patient was taken to the OR for cholecystectomy Patient can continue oral feeding. And will continue holding Xarelto until final decision is made regarding surgical intervention. (2) HTN (hypertension) Status: Acute Problem Text: Continue home meds and hydralazine when necessary (3) Dementia Status: Chronic Problem Text: Continue home meds (4) Diabetes mellitus Status: Chronic Problem Text: Fingerstick blood sugar every before meals and at bedtime with coverage Continue home meds (5) A-fib Status: Acute Problem Text: Continue home meds Plan/VTE VTE Prophylaxis Ordered?: Yes VS, I&O, 24H, Fishbone Vital Signs/I&O Vital Signs Date Time Temp Pulse Resp B/P (MAP) Pulse Ox O2 Delivery O2 Flow Rate FiO2 12/21/19 08:45 113/71 12/21/19 06:00 97.7 84 16 95 Room Air I&O- Last 24 Hours up to 6 AM 12/21/19 06:00 Intake Total 2960 ml Output Total 0 ml Balance 2960 ml Laboratory Data 24H LABS Laboratory Tests 2 12/20/19 11:39: Bedside Glucose (Misc Panel) 179H 12/20/19 16:26: Bedside Glucose (Misc Panel) 145H 12/20/19 21:03: Bedside Glucose (Misc Panel) 252H 12/21/19 05:33: Bedside Glucose (Misc Panel) 92 12/21/19 07:45: Nucleated Red Blood Cells % (auto) 0.0, Anion Gap 8, Glomerular Filtration Rate 47.5, Calcium Level 9.1, Total Bilirubin 0.3, Aspartate Amino Transf (AST/SGOT) 12, Alanine Aminotransferase (ALT/SGPT) 12, Alkaline Phosphatase 103, Total Protein 6.3L, Albumin 2.2L, Albumin/Globulin Ratio 0.54L CBC/BMP Laboratory Tests 12/21/19 07:45 DEN LEMA MD Dec 21, 2019 09:41
--- NOTE | 2019-12-21 10:42 | IPN ---
DATE: 12/21/2019 The patient seems to be stable. Still her white count has trended down nicely, down to 10.4 today. She still has some abdominal pain she says right midabdomen. It seems to be a persistent pain. It is not colicky. She is more awake and alert today, much more with it. She tolerated breakfast this morning and seems to be tolerating food without progression of her pain or discomfort. Her abdomen is soft, nontender, and nondistended. Despite complaining of pain on the right side she really has no tenderness in this area. IMPRESSION/PLAN: The patient is currently being treated for cholecystitis. Her infection seems to be resolving nicely and would recommend continued treatment at this time. If there is still some concerns about the etiology of the infectious process, possibly a HIDA scan is warranted. However, otherwise, operative intervention with a laparoscopic cholecystectomy is a next reasonable step.
[2019-12-21 14:00] VITALS: BP 119/63
[2019-12-21] MEDS: ERTAPENEM SODIUM 1 GM in NS MINI-BAG PLUS 50 ML IV SCH (15:14)
[2019-12-21] MEDS: ACETAMINOPHEN TAB 650MG DOSE (2X325MG) PO PRN (18:20)
[2019-12-21] MEDS: LEVEMIR (INSULIN DETEMIR) 1 UNITS/0.01ML SC SCH (20:40)
[2019-12-21 22:00] VITALS: BP 112/59
[2019-12-22 06:00] VITALS: BP 134/91
[2019-12-22] MEDS: HumaLOG INSULIN (NovoLOG) PER UNIT SC SCH ×4 (07:30→21:00)
[2019-12-22] MEDS ORDERED: POTASSIUM CHLORIDE 10 MEQ SR TABLET PO ONE (08:00)
[2019-12-22] MEDS: PREGABALIN 25 MG CAP (LYRICA) PO SCH ×2 (08:15→21:39)
[2019-12-22] MEDS: LOSARTAN 50MG TABLET PO SCH (08:19)
[2019-12-22] MEDS: ATORVASTATIN 20 MG TAB PO SCH (08:20)
[2019-12-22] MEDS: FLUoxetine 20 MG CAP PO SCH (08:20)
[2019-12-22] MEDS: risperiDONE 1 MG TAB PO SCH ×2 (08:23→21:39)
[2019-12-22] MEDS: PANTOPRAZOLE 40MG VIAL (C9113 PER 1) IV SCH (08:24)
[2019-12-22] MEDS: ERTAPENEM SODIUM 1 GM in NS MINI-BAG PLUS 50 ML IV SCH (10:18)
--- NOTE | 2019-12-22 10:53 | IPNPDOC ---
Subjective Date Seen The patient was seen on 12/22/19. Subjective Chief Complaint/HPI Patient is much more comfortable asymptomatic at the present time, in no apparent distress General: Denies: ROS Unobtainable, Chills, Night Sweats, Fatigue, Malaise, Normal Appetite, Other Symptoms Constitutional: Denies: Chills, Fever, Malaise, Night Sweats, Weakness, Fatigue, Weight Loss, Lethargy, Other Pulmonary: Denies: Dyspnea, Cough, Pleuritic Chest Pain, Other Symptoms Cardiovascular: Denies: Chest Pain, Palpitations, Orthopnea, Paroxysmal Noc. Dyspnea, Edema, Lt Headedness, Other Symptoms Gastrointestinal: Denies: Nausea, Vomiting, Abdominal Pain, Diarrhea, Constipation, Melena, Hematochezia, Other Symptoms Musculoskeletal: Denies: Neck Pain, Back Pain, Shoulder Pain, Arm Pain, Hand Pain, Leg Pain, Foot Pain, Joint Pain, Muscle Pain, Spasms, Other Symptoms Neurological: Denies: Weakness, Numbness, Incoordination, Change in speech, Confusion, Seizures, Other Symptoms Objective Physical Examination General Exam: Positive: Alert, Cooperative Neck Exam: Positive: Supple Chest Exam: Positive: Clear to auscultation, Normal air movement Heart Exam: Positive: Rate Normal, Normal S2 Abdomen Exam: Positive: Normal bowel sounds, Soft, Other (minimal tenderness right upper quadrant on deep palpation) Extremity Exam: Positive: Normal pulses Skin Exam: Positive: Nl turgor and temperature Neuro Exam: Positive: Strength at 5/5 X4 ext, Sensation Intact, Cranial Nerves 3-12 NL Assessment /Plan Problems (1) Cholelithiasis with acute cholecystitis Status: Acute Problem Text: Surgery consult appreciated Patient has improved a lot with no nausea, vomiting, abdominal pain at the present time Off IV fluids and continue morphine and Zofran as needed. Patient's WBC count today is 10.4 which is improved with IV antibiotics Awaiting decision from surgery whether they will approach and surgical intervention on continue conservative medical management till then Xarelto will be on hold Will place patient on nothing by mouth of surgery decided to take her to OR (2) HTN (hypertension) Status: Acute Problem Text: Continue home meds and hydralazine when necessary (3) Dementia Status: Chronic Problem Text: Continue home meds (4) Diabetes mellitus Status: Chronic Problem Text: Fingerstick blood sugar every before meals and at bedtime with coverage Continue home meds (5) A-fib Status: Acute Problem Text: Continue home meds Plan/VTE VTE Prophylaxis Ordered?: Yes VS, I&O, 24H, Fishbone Vital Signs/I&O Vital Signs Date Time Temp Pulse Resp B/P (MAP) Pulse Ox O2 Delivery O2 Flow Rate FiO2 12/22/19 08:19 144/82 12/22/19 06:00 97.9 90 17 94 Room Air I&O- Last 24 Hours up to 6 AM 12/22/19 06:00 Intake Total 5260 ml Balance 5260 ml Laboratory Data 24H LABS Laboratory Tests 2 12/21/19 11:31: Bedside Glucose (Misc Panel) 180H 12/21/19 16:26: Bedside Glucose (Misc Panel) 206H 12/21/19 20:12: Bedside Glucose (Misc Panel) 233H 12/22/19 05:18: Bedside Glucose (Misc Panel) 177H DEN LEMA MD Dec 22, 2019 10:53
[2019-12-22] MEDS: MORPHINE 2 MG/ML 1ML VIAL (J2270) IV PRN (12:35)
[2019-12-22 14:00] VITALS: BP 123/60
--- NOTE | 2019-12-22 18:00 | IPN ---
DATE: 12/22/2019 HISTORY: The patient was admitted with acute cholecystitis by the hospitalist service on December 18, 2019. She had some other medical issues as well, particularly hypertension and hyperglycemia secondary to her diabetes, which is poorly controlled. She also was on Xarelto for atrial fibrillation (a fib), and I was waiting for this to lose its effect. I saw her on Sunday and would have considered cholecystectomy on Sunday if I was here. My covering physician over the weekend, Dr. Ellison, did not feel pressed to remove her gallbladder. Today she appears fairly comfortable, and her white cell count has diminished with continuing antibiotics. Vital signs: Show that she has been afebrile over the past 24 hours. Her pulse is in the high 80s to 90. Blood pressure is acceptable, and her room air oxygen saturation is normal. Intake and output yesterday shows that she had 5500 recorded in orally with multiple voids and several bowel movements recorded but not measured. Physical exam today shows that she is alert. Skin is warm and dry. She does report some discomfort in the right upper quadrant. Heart exam shows a regular rhythm. The lungs are clear. The abdomen is obese, and she has some mild tenderness in the right subcostal area down to about 7-8 cm below the costal margin. No mass is appreciated. The patient has no laboratory studies today to followup. Yesterday her white blood cell count was 10.4, and her chemistries showed normal liver function tests. IMPRESSION: The patient has acute cholecystitis. I would have operated on her 2 days ago had I been here this weekend. Now she continues with some mild tenderness and does complain of pain when asked. Her white blood cell count is down to 10. I suspect that this still represents acute cholecystitis, though she has responded to some degree to the antibiotics with an improvement in her white blood cell count. Also, since it is now a week since she started having symptoms, the degree of scarring and inflammation around her gallbladder may have worsened to a point to make a laparoscopic approach more difficult. PLAN: I will order a HIDA scan for tomorrow. If this confirms acute cholecystitis as I expect, then I will recommend a repeat CT scan to assess the degree of inflammation. If she has little inflammation, then I think continuing the antibiotics to try a nonoperative approach to her care would be reasonable. If there is still marked inflammation, then I believe it will probably be better in the long run to proceed to cholecystectomy before discharge. DIRK
[2019-12-22] MEDS: NORCO, ANEXSIA 5/325MG TABLET (HYDROcodone/ACETAMINOPHEN) PO PRN (21:39)
[2019-12-22] MEDS: LEVEMIR (INSULIN DETEMIR) 1 UNITS/0.01ML SC SCH (21:39)
[2019-12-22 22:00] VITALS: BP 152/75
[2019-12-23 06:00] VITALS: BP 144/74
[2019-12-23 06:41] LABS: BASO # 0.1 10^3/uL (0.0-0.2); BASO % 0.6 % (0.0-1.0); EOS # 0.5 10^3/uL (0.0-0.5); EOS % 4.7 % (0.0-3.0); HEMATOCRIT 39.9 % (36.0-47.0); HEMOGLOBIN 13.4 g/dl (12.0-15.5); LYMPH # 2.3 10^3/uL (1.5-5.0); LYMPH % 24.2 % (24.0-44.0); MEAN CORPUSCULAR HEMOGLOBIN 31.6 pg (27.0-33.0); MEAN CORPUSCULAR HGB CONC 33.6 g/dl (32.0-36.5); MEAN CORPUSCULAR VOLUME 94.1 fl (80.0-96.0); MONO % 10.2 % (0.0-5.0); NEUTROPHILS # 5.7 10^3/uL (1.5-8.5); NEUTROPHILS % 59.7 % (36.0-66.0); PLATELET COUNT, AUTOMATED 287 10^3/uL (150-450); RED BLOOD COUNT 4.24 10^6/uL (4.00-5.40); WHITE BLOOD COUNT 9.5 10^3/uL (4.0-10.0)
[2019-12-23 07:03] LABS: ALBUMIN 2.3 GM/DL (3.2-5.2); BILIRUBIN,TOTAL 0.3 MG/DL (0.2-1.0); CALCIUM LEVEL 9.3 MG/DL (8.8-10.2); CREATININE FOR GFR 1.11 MG/DL (0.55-1.30); GLOMERULAR FILTRATION RATE 52.5 (>45); POTASSIUM SERUM 4.5 MEQ/L (3.5-5.1); TOTAL PROTEIN 6.5 GM/DL (6.4-8.2)
[2019-12-23] MEDS: HumaLOG INSULIN (NovoLOG) PER UNIT SC SCH ×4 (07:59→21:00)
[2019-12-23] MEDS: risperiDONE 1 MG TAB PO SCH ×2 (08:00→21:29)
[2019-12-23] MEDS: FLUoxetine 20 MG CAP PO SCH (08:00)
[2019-12-23] MEDS: PREGABALIN 25 MG CAP (LYRICA) PO SCH ×2 (08:00→21:29)
[2019-12-23] MEDS: ATORVASTATIN 20 MG TAB PO SCH (08:02)
[2019-12-23] MEDS: LOSARTAN 50MG TABLET PO SCH (08:02)
[2019-12-23] MEDS: PANTOPRAZOLE 40MG VIAL (C9113 PER 1) IV SCH (08:08)
[2019-12-23] MEDS ORDERED: ISOVUE-370 76% 100ML VIAL As Ordered ONE (14:37)
--- NOTE | 2019-12-23 15:56 | REP ---
REASON FOR EXAM: Assess for acute cholecystitis. There are no priors for comparison. After the intravenous administration of 6.6 mCi of technetium 99m Choletec, hepatobiliary imaging was performed. There is symmetric distribution of the radiotracer throughout the hepatocytes. The gallbladder appears to be visualized at 50 minutes. The lateral view shows activity anterior to the liver. There is distribution of the radiotracer in the proximal biliary tree and in the small bowel normally. IMPRESSION: No definite scintigraphic evidence of acute cholecystitis. Electronically Signed by Grant Koch DO 12/23/2019 04:57 P
[2019-12-23] MEDS: ERTAPENEM SODIUM 1 GM in NS MINI-BAG PLUS 50 ML IV SCH (16:10)
--- NOTE | 2019-12-23 16:58 | REP ---
REASON: Persistent right upper quadrant pain. COMPARISON: CT 12/15/2019. CONTRAST TODAY: 40 mL of Isovue-370. The examination was performed in my absentia. Lung bases are clear and unchanged. The gallbladder wall has thickened since the last exam and enhances along with pericholecystic fatty infiltration. Small choleliths are noted, status quo. There is no free fluid in the gallbladder fossa or within Morison pouch. The liver and spleen are unchanged. The pancreas, adrenal glands, and kidneys are unchanged. The abdominal aorta and para-aortic regions are unchanged. The bowel loops and their mesenteries are unchanged. There is no free fluid or free air. There is no change in the osseous structures. IMPRESSION: Gallbladder findings as described above suggest acute cholecystitis, however, hepatobiliary imaging exam performed today showed evidence of visualization of the gallbladder within 1 hour. That finding is not definitive, however. Since the CT scan of 12/15/2019 shows a thin-walled gallbladder, and today's exam shows a thickened edematous wall, certainly, the CT findings are consistent with acute cholecystitis and that would be the diagnosis. These findings were discussed with Dr. Francis Levin at the time of this dictation. Electronically Signed by Grant Koch DO 12/23/2019 05:11 P
[2019-12-23] MEDS: NORCO, ANEXSIA 5/325MG TABLET (HYDROcodone/ACETAMINOPHEN) PO PRN (19:55)
--- NOTE | 2019-12-23 20:20 | IPNPDOC ---
Date Seen The patient was seen on 12/23/19. Progress Note SUBJECTIVE: Mild tenderness of exam of RUQ, improved as per patient. F/u on surgery recommendations but improving with abx. C/w current treatment. She denies chest pain, n/v/d, shortness of breath. OBJECTIVE: VITAL SIGNS: Please see below PHYSICAL EXAMINATION: CONSTITUTIONAL: No acute distress, resting comfortably, AAO x 3 EYES: PERRLA, EOM intact HENT, MOUTH: Normocephalic, atraumatic, moist mucous membranes NECK: SUPPLE, no JVD, no lymphadenopathy, no carotid bruit CV: Regular rate and rhythm, S1S2 normal, no murmurs/rubs/gallops RESPIRATORY: Clear to auscultation bilaterally, no rales/rhonchi/wheezes GI: obese abdomen, RUQ pain tender to touch, BS positive in 4 quadrants, soft, nontender, nondistended, no organomegaly : Deferred MUSCULOSKELETAL: Normal ROM. No cyanosis, clubbing, swelling, joint deformity, extremity edema INTEGUMENTARY: Intact, no rashes, no lesions, no erythema NEUROLOGIC: Cranial Nerves II-XII are intact, no focal deficits PSYCHIATRIC: Mood and affect are normal CURRENT MEDICATIONS: Please see below LABORATORY DATA: Please see below IMAGING: No new imaging. ASSESSMENT: 64 y/o F admitted for cholelithiasis with acute cholecystitis. PLAN: (1) Cholelithiasis with acute cholecystitis Status: Acute Problem Text: Surgery following. Will touch base to see if HIDA scan needed if improving on abx alone. WBC wnl this AM with mild tenderness still present. No n/v/d. (2) HTN (hypertension) Status: Chronic, stable Problem Text: Continue home meds and hydralazine when necessary (3) Dementia Status: Chronic Problem Text: Continue home meds (4) Diabetes mellitus Status: Chronic Problem Text: Fingerstick blood sugar every before meals and at bedtime with coverage Continue home meds (5) A-fib Status: Chronic, stable Problem Text: Continue home meds DISPOSITION: Currently admitted under inpatient status. Plan will be discussed with surgery in the AM. VS, I&O, 24H, Fishbone Vital Signs/I&O Vital Signs Date Time Temp Pulse Resp B/P (MAP) Pulse Ox O2 Delivery O2 Flow Rate FiO2 12/23/19 19:55 16 12/23/19 08:02 119/66 12/23/19 06:00 97.3 84 95 Room Air I&O- Last 24 Hours up to 6 AM 12/23/19 06:00 Intake Total 2565 ml Output Total 0 ml Balance 2565 ml Laboratory Data 24H LABS Laboratory Tests 2 12/22/19 21:13: Bedside Glucose (Misc Panel) 199H 12/23/19 05:55: Immature Granulocyte % (Auto) 0.6, Neutrophils (%) (Auto) 59.7, Lymphocytes (%) (Auto) 24.2, Monocytes (%) (Auto) 10.2H, Eosinophils (%) (Auto) 4.7H, Basophils (%) (Auto) 0.6, Neutrophils # (Auto) 5.7, Lymphocytes # (Auto) 2.3, Monocytes # (Auto) 1.0H, Eosinophils # (Auto) 0.5, Basophils # (Auto) 0.1, Nucleated Red Blood Cells % (auto) 0.0, Anion Gap 8, Glomerular Filtration Rate 52.5, Calcium Level 9.3, Total Bilirubin 0.3, Aspartate Amino Transf (AST/SGOT) 8, Alanine Aminotransferase (ALT/SGPT) 12, Alkaline Phosphatase 121H, Total Protein 6.5, Albumin 2.3L, Albumin/Globulin Ratio 0.55L 12/23/19 16:44: Bedside Glucose (Misc Panel) 88 CBC/BMP Laboratory Tests 12/23/19 05:55 Current Medications Current Medications Medications (Trade) Dose Ordered Sig/Martín Route PRN Reason Start Time Stop Time Status Last Admin Dose Admin Acetaminophen (Tylenol Tab) 650 mg Q4H PRN PO PAIN OR FEVER 12/18/19 13:45 12/21/19 18:20 Acetaminophen/ Hydrocodone Bitart ([place], Anexsia 5/325) 1 tab Q6HP PRN PO MILD/MODERATE PAIN (PS 1-7) 12/22/19 17:30 12/23/19 19:55 Atorvastatin Calcium (Lipitor) 20 mg DAILY PO 12/19/19 09:00 12/23/19 08:02 Dextrose (Dextrose 50%) 25 ml ASDIRECTED PRN IV SEE LABEL COMMENTS 12/18/19 14:00 Ertapenem 1 gm/ Sodium Chloride 50 ml @ 100 mls/hr Q24H IV 12/18/19 15:00 12/23/19 16:10 Fluoxetine HCl (PROzac) 40 mg DAILY PO 12/19/19 09:00 12/23/19 08:00 Glucagon (Glucagon) 1 mg ASDIRECTED PRN SC SEE LABEL COMMENTS 12/18/19 14:00 Glucose (Glucose) 16 GM ASDIRECTED PRN PO SEE LABEL COMMENTS 12/18/19 14:00 Home Med (Med Rec Complete!) ASDIRECTED XX 12/18/19 22:45 12/18/19 22:35 DC Hydralazine HCl (Apresoline) 10 mg Q6H PRN PO SBP >150 12/18/19 14:00 12/18/19 14:42 Insulin Detemir (Levemir Insulin) 45 units QHS FL 12/22/19 21:00 12/22/19 21:39 Insulin Detemir (Levemir Insulin) 50 units QHS FL 12/20/19 21:00 12/22/19 07:48 DC 12/21/19 20:40 Insulin Detemir (Levemir Insulin) 60 units QHS FL 12/19/19 21:00 12/20/19 07:25 DC 12/19/19 21:12 Insulin Human Lispro (HumaLOG INSULIN) SEE PROTOCOL TABLE AC FL 12/18/19 17:30 UNV Insulin Human Lispro (HumaLOG INSULIN) SEE PROTOCOL TABLE Q6H FL 12/18/19 18:00 12/19/19 10:34 DC 12/19/19 05:48 Insulin Human Lispro (HumaLOG INSULIN) See Protocol Table AC FL 12/19/19 12:00 12/23/19 07:59 Insulin Human Lispro (HumaLOG INSULIN) See Protocol Table QHS FL 12/19/19 21:00 12/20/19 21:46 Losartan Potassium (Cozaar) 50 mg DAILY PO 12/19/19 09:00 12/23/19 08:02 Morphine Sulfate (Morphine Sulfate Inj) 2 mg Q4H PRN IV MODERATE PAIN (PS 5-7) 12/18/19 14:00 12/22/19 17:28 DC 12/22/19 12:35 Nystatin (Mycostatin Powder, Nystop) 1 dose DAILY PRN TOP RASH 12/19/19 07:30 Ondansetron HCl (ZOFRAN INJection) 4 mg Q4HP PRN IV NAUSEA OR VOMITING 12/18/19 14:00 12/19/19 12:39 Pantoprazole Sodium (Protonix) 40 mg Q24H IV 12/18/19 09:00 12/23/19 08:08 Pregabalin (Lyrica) 25 mg BID PO 12/19/19 09:00 12/23/19 08:00 Risperidone (RisperDAL) 1 mg BID PO 12/19/19 09:00 12/23/19 08:00 Rivaroxaban (Xarelto) 15 mg DAILY PO 12/19/19 09:00 12/19/19 07:32 DC Sodium Chloride 1,000 ml @ 75 mls/hr [id number] IV 12/18/19 13:45 12/19/19 12:12 DC 12/19/19 03:52 Sodium Chloride 1,000 ml @ 100 mls/hr Q10H IV 12/18/19 10:15 12/18/19 13:51 DC 12/18/19 11:04 Allergies Coded Allergies: Penicillins (Verified Allergy, Unknown, 03/21/19) erythromycin base (Verified Allergy, Unknown, 03/21/19) shellfish derived (Verified Allergy, Unknown, 03/21/19) amoxicillin (Verified Adverse Reaction, Mild, vomiting, 12/15/19) Sia Sears MD Dec 23, 2019 20:20
[2019-12-23] MEDS: LEVEMIR (INSULIN DETEMIR) 1 UNITS/0.01ML SC SCH (21:30)
[2019-12-23 22:00] VITALS: BP 123/66
--- NOTE | 2019-12-23 22:58 | IPN ---
DATE: 12/23/2019 HISTORY: The patient was admitted with acute cholecystitis on the . She had several medical issues to be addressed before we could consider surgery. Over the weekend she was continued on antibiotics and reported minimal discomfort. Her white count initially derrick after admission and then has gone back down toward normal. Vital signs: Show that she has been afebrile over the past 24 hours. Pulse is in the 80s and blood pressure is acceptable. Intake and output shows that yesterday she had 2600 in and five voids were noted but no volumes were recorded. She has not had a weight since admission. PHYSICAL EXAMINATION: The patient is lying quietly on the hospital bed. She denies any pain. She is alert. Abdomen is obese but soft and nontender without appreciable mass. Laboratory studies today showed a white count of 10, hemoglobin 13, hematocrit 40, and a platelet count of 287,000. Differential count today is normal with 60% neutrophils, 24% lymphocytes and 10% monocytes. Chemistry profile shows normal electrolytes, BUN, creatinine and a glucose of 115. Liver function tests are not significantly abnormal, and her total protein is 6.5 with an albumin of 2.3. IMAGING: The patient had a nuclear biliary scan today, which I reviewed personally. I also spoke with Dr. Koch in about this. My impression is that there was never definite filling of the gallbladder noted on the study. Dr. Koch felt that there was some visualization of the gallbladder at 50 minutes on the lateral view. It is my impression that this actually represents some tracer within the GI tract and not the gallbladder. Following this, she had a CT scan of the abdomen to further evaluate the gallbladder. This does show significant gallbladder wall thickening, which seems worse than what was seen on the , her prior CT. IMPRESSION: The patient clearly has acute cholecystitis. Her nuclear scan I believe shows no filling of the gallbladder. The repeat CT scan shows significant thickening of the body and fundus of the gallbladder. She is now 8 days since she initially complained of pain and was seen in the emergency department. At this point, she has no tenderness noted on exam and her white count has returned to normal with a normal differential. PLAN: The patient has responded quite well to her current antibiotics. And today has no complaints of pain. The abdomen is nontender. In general, the best approach to acute cholecystitis is to operate early in the course of the disease and remove the gallbladder to prevent later problems. However, in this patient's case, as she is now 8 days into her episode and is doing well with just antibiotics, I am inclined not to operate at this point. I cannot predict with certainty whether she will continue to respond well and resolve this episode, but I suspect that this will be the case. I would, therefore, recommend continuing her on antibiotics for perhaps another 5 days, although you could certainly consider converting her to oral antibiotics and discharging her home to complete her course of antibiotics. If she has a recurrence of pain, then further treatment might be warranted. It would be reasonable to reassess her in 6 weeks or so to consider whether an interval cholecystectomy is warranted or not. I will call the patient's daughter on the morning of the to discuss things with her, but at this point, I do not plan to intervene surgically during this hospital stay. DIRK
[2019-12-24 06:00] VITALS: BP 121/75
[2019-12-24 08:29] VITALS: BP 121/75
[2019-12-24] MEDS: HumaLOG INSULIN (NovoLOG) PER UNIT SC SCH ×2 (08:29→12:43)
[2019-12-24] MEDS: LOSARTAN 50MG TABLET PO SCH (08:29)
[2019-12-24] MEDS: PANTOPRAZOLE 40MG VIAL (C9113 PER 1) IV SCH (08:29)
[2019-12-24] MEDS: risperiDONE 1 MG TAB PO SCH (08:29)
[2019-12-24] MEDS: ATORVASTATIN 20 MG TAB PO SCH (08:29)
[2019-12-24] MEDS: FLUoxetine 20 MG CAP PO SCH (08:30)
[2019-12-24] MEDS: PREGABALIN 25 MG CAP (LYRICA) PO SCH (08:30)
[2019-12-24 08:52] LABS: HEMATOCRIT 40.3 % (36.0-47.0); HEMOGLOBIN 13.3 g/dl (12.0-15.5); MEAN CORPUSCULAR HEMOGLOBIN 31.6 pg (27.0-33.0); MEAN CORPUSCULAR VOLUME 95.7 fl (80.0-96.0); PLATELET COUNT, AUTOMATED 374 10^3/uL (150-450); RED BLOOD COUNT 4.21 10^6/uL (4.00-5.40)
[2019-12-24 09:14] LABS: ALBUMIN 2.5 GM/DL (3.2-5.2); BILIRUBIN,TOTAL 0.3 MG/DL (0.2-1.0); CALCIUM LEVEL 9.7 MG/DL (8.8-10.2); CREATININE FOR GFR 1.12 MG/DL (0.55-1.30); POTASSIUM SERUM 4.8 MEQ/L (3.5-5.1); TOTAL PROTEIN 6.3 GM/DL (6.4-8.2)
[2019-12-24] MEDS ORDERED: LEVO500T3 PO (11:30)
[2019-12-24] MEDS ORDERED: FLAG500T PO (11:30)
--- NOTE | 2019-12-24 17:42 | DS.PDOC ---
Discharge Summary General Date of Admission Dec 18, 2019 at 13:43 Date of Discharge 12/24/19 Primary Care Physician: MIGUEL ONOFRE DO Attending Physician: Sia Sears MD Specialist/Consultants Involve: A Discharge Summary HISTORY OF PRESENT ILLNESS: This is a 64 years old white female with past medical history of diabetes mellitus, peripheral neuropathy of diabetes. Is status post and tubal ligation, status post clipping of brain aneurysm, bipolar disorder, depression, atrial fibrillation on anticoagulation, and dementia was seen in the ED second time with chief complaints of nausea, vomiting and abdominal pain. On her first visit on December 14. She was diagnosed with cholelithiasis with mild gallbladder distention and was discharged home to follow-up as an outpatient with surgery, but patient again presented today with complaining of right upper quadrant pain and vomiting. Patient has advanced dementia very poor historian. History was obtained from [facility] old records were reviewed EMS records also reviewed. Patient responded some portion, but otherwise she does not remember. When I ask about the intensity and duration of the pain and radiation, timing ,factors modifying either worsening or improving the pain, patient is unable to explain it to me secondary to advanced dementia. In the ER, patient was diagnosed with cholelithiasis with acute cholecystitis, started on abx and admitted for further treatment. HOSPITAL COURSE: Dr. Paulson, general surgery, was consulted for aforementioned diagnosis. Antibiotics were continued and WBC improved gradually. Surgery was held off on. Ultimately it was decided that patient was not in need of surgery but continued antibiotic course. She was evaluated by PT/OT who cleared her for return home with home health services. On 12/24/19 patient was discharged back home with 5 additional days of PO flagyl, levofloxacin. She is to follow up with PCP as scheduled. As per surgery, if she has a recurrence of pain, then further treatment with surgery might be warranted. It would be reasonable to reassess her in 6 weeks or so to consider whether an interval cholecystectomy is warranted or not. Surgery was to call the patient's daughter today. At the time of discharge, patient denied abdominal pain, n/v/d, fevers or chills. REVIEW OF SYSTEMS: CONSTITUTIONAL: Denies lack of energy, unexplained weight gain or weight loss, loss of appetite, fever, night sweats EYES: Denies eye drainage, eye pain, visual changes, dry/irritated eye EARS, NOSE, MOUTH, THROAT: Denies difficulty hearing, ringing in ears, mouth sores, loose teeth, sore throat, facial numbness or pain NECK: Denies swollen glands CARDIOVASCULAR: Denies irregular heartbeat, racing heart, chest pains, swelling of feet or legs, pain in legs with walking RESPIRATORY: Denies shortness of breath, night sweats, wheezing, sputum production, oxygen at home, coughing up blood, cough lasting > 1 month GASTROINTESTINAL: Denies abdominal pain, constipation, bloody stool, diarrhea, heartburn, nausea, vomiting GENITOURINARY: Denies painful urination, bloody urine, frequent urination, urgency, leaking urine, impotence MUSCULOSKELETAL: Denies joint pain, muscle pain, leg swelling INTEGUMENTARY: Denies rash, itching, new skin lesion, change in existing skin lesion, hair loss or increase, breast changes. NEUROLOGICAL: Denies headaches, dizziness, difficulty walking, numbness or tingling PSYCHIATRIC: Denies depression, anxiety, recurrent bad thoughts, mood swings, hallucinations PAST MEDICAL HISTORY: Diabetes mellitus, peripheral neuropathy, status post brain aneurysm clipping, bipolar disorder, manic depressive illness, atrial fibrillation and dementia PAST SURGICAL HISTORY: Status post 2. Bartholin's gland surgery and tubal ligation FAMILY HISTORY: Patient was unable to provide family medical history, poor historian SOCIAL HISTORY: * Smoker: Denies Alcohol: Denies Drugs: denies ALLERGIES: Please see below. DISCHARGE MEDICATIONS: Please see below. PHYSICAL EXAMINATION: CONSTITUTIONAL: No acute distress, resting comfortably, AAO x 2-baseline EYES: PERRLA, EOM intact HENT, MOUTH: Normocephalic, atraumatic, moist mucous membranes NECK: SUPPLE, no JVD, no lymphadenopathy, no carotid bruit CV: Regular rate and rhythm, S1S2 normal, no murmurs/rubs/gallops RESPIRATORY: Clear to auscultation bilaterally, no rales/rhonchi/wheezes GI: obese abdomen, no pain on palpation, BS positive in 4 quadrants, soft, nondistended, no organomegaly : Deferred MUSCULOSKELETAL: Normal ROM. No cyanosis, clubbing, swelling, joint deformity, extremity edema INTEGUMENTARY: Intact, no rashes, no lesions, no erythema NEUROLOGIC: Cranial Nerves II-XII are intact, no focal deficits PSYCHIATRIC: Mood and affect are normal CURRENT MEDICATIONS: Please see below LABORATORY DATA: Please see below IMAGING: No new imaging. ASSESSMENT: 64 y/o F admitted for cholelithiasis with acute cholecystitis. PLAN: (1) Cholelithiasis with acute cholecystitis Status: Acute Problem Text: Much improved. no surgical intervention. Per surgery, if she has a recurrence of pain, then further treatment with surgery might be warranted. Her PCP should reassess on f/u to consider whether an interval cholecystectomy is warranted or not. Surgery was to call the patient's daughter today. D/c home with 5 days of PO flagyl, levofloxacin. (2) HTN (hypertension) Status: Chronic, stable Problem Text: Continue home meds and hydralazine when necessary (3) Dementia Status: Chronic Problem Text: Continue home meds (4) Diabetes mellitus Status: Chronic Problem Text: Fingerstick blood sugar every before meals and at bedtime with coverage Continue home meds (5) A-fib Status: Chronic, stable Problem Text: Continue home meds DISPOSITION: Discharged home in improved condition and f/u with PCP. TIME SPENT ON DISCHARGE: 35 minutes. Vital Signs/I&Os Vital Signs Date Time Temp Pulse Resp B/P (MAP) Pulse Ox O2 Delivery O2 Flow Rate FiO2 12/24/19 08:29 121/75 12/24/19 06:00 96.8 70 19 95 Room Air I&O- Last 24 Hours up to 6 AM 12/24/19 06:00 Intake Total 1781 ml Output Total 200 ml Balance 1581 ml Laboratory Data Labs 24H Laboratory Tests 2 12/23/19 20:18: Bedside Glucose (Misc Panel) 209H 12/24/19 06:00: Bedside Glucose (Misc Panel) 130H 12/24/19 08:32: Nucleated Red Blood Cells % (auto) 0.0 12/24/19 08:33: Anion Gap 4L, Glomerular Filtration Rate 52.0, Calcium Level 9.7, Total Bilirubin 0.3, Aspartate Amino Transf (AST/SGOT) 12, Alanine Aminotransferase (ALT/SGPT) 14, Alkaline Phosphatase 128H, Total Protein 6.3L, Albumin 2.5L, Albumin/Globulin Ratio 0.66L 12/24/19 11:27: Bedside Glucose (Misc Panel) 151H CBC/BMP Laboratory Tests 12/24/19 08:32 12/24/19 08:33 FSBS Laboratory Tests Test 12/23/19 20:18 12/24/19 06:00 12/24/19 11:27 Range/Units Bedside Glucose (Misc Panel) 209 130 151 80-115 MG/DL Discharge Medications Scheduled Atorvastatin Calcium (Atorvastatin Calcium) 20 Mg Tablet, 20 MG PO DAILY, (Reported) Fluoxetine HCl (Prozac) 40 Mg Cap, 40 MG PO DAILY, (Reported) Insulin Glargine,Hum.rec.anlog (Basaglar Kwikpen U-100) 100 Unit/1 Ml Insuln.pen, 60 UNITS SC QPM, (Reported) Insulin Human Lispro (Novolog) 100 Unit/1 Ml Vial, 15 UNITS SC TID, (Reported) Levofloxacin (Levofloxacin) 500 Mg Tablet, 500 MG PO DAILY Losartan Potassium (Losartan Potassium) 50 Mg Tablet, 50 MG PO DAILY, (Reported) Metronidazole (Flagyl) 500 Mg Tablet, 500 MG PO Q8H FOR 10 DAYS Pregabalin (Lyrica) 25 Mg Cap, 25 MG PO BID, (Reported) Risperidone (Risperidone) 1 Mg Tab, 1 MG PO BID, (Reported) Rivaroxaban (Xarelto) 15 Mg Tab, 15 MG PO DAILY, (Reported) Scheduled PRN Acetaminophen (Acetaminophen) 325 Mg Tablet, 650 MG PO Q4H PRN for PAIN, (Reported) Nystatin (Nystatin Powder) 15 Gm Powder, 1 DOSE TOP DAILY PRN for RASH, (Reported) APPLY UNDER BREASTS Miscellaneous Medications [Med Rec Comment] , (Reported) WAS NOT ABLE TO GET IN CONTACT WITH PATIENTS DAUGHTER. LEFT VOICE MAIL TO CALL Allergies Coded Allergies: Penicillins (Verified Allergy, Unknown, 03/21/19) erythromycin base (Verified Allergy, Unknown, 03/21/19) shellfish derived (Verified Allergy, Unknown, 03/21/19) amoxicillin (Verified Adverse Reaction, Mild, vomiting, 12/15/19) Sia Sears MD Dec 24, 2019 17:42
== END 2019-12-24 13:43 | disposition home or self-care (01) | DRG 445 ==
LOC: EDBD 10:03 → M ED 10:03 → M ED INP 13:43 → ENRESERV 14:46 → M MSPAV 15:37
PROVIDERS: ADMIT Internal Medicine; ATTEND Internal Medicine
DX: K80.00 Calculus of gallbladder with acute cholecystitis without obstruction (principal); I48.20 Chronic atrial fibrillation, unspecified; F03.90 Unspecified dementia, unspecified severity, without behavioral disturbance, psychotic disturbance, mood disturbance, and anxiety; E11.42 Type 2 diabetes mellitus with diabetic polyneuropathy; I10 Essential (primary) hypertension; E11.65 Type 2 diabetes mellitus with hyperglycemia; F31.9 Bipolar disorder, unspecified; Z79.82 Long term (current) use of aspirin; Z79.4 Long term (current) use of insulin; Z79.899 Other long term (current) drug therapy; Z88.0 Allergy status to penicillin; Z88.1 Allergy status to other antibiotic agents; Z91.013 Allergy to seafood

== ENCOUNTER 2020-03-29 14:37 | Emergency (ER) | payer MEDICARE ==
[~2020-03-29 14:37] MED LIST changes: -AMLO10TA5 PO; +AMLO1TAB25 PO; +FLAG500T PO; +LEVO500T3 PO; +MED REC COMMENT
[2020-03-29] MEDS ORDERED: ONDANSETRON 4MG/2ML VIAL As Ordered ONE (16:26)
[2020-03-29] MEDS ORDERED: KETOROLAC 30 MG/ML 1ML VIAL As Ordered ONE (16:27)
[2020-04-25 17:14] LABS: CALCIUM LEVEL 9.8 MG/DL (8.8-10.2); CREATININE FOR GFR 1.37 MG/DL (0.55-1.30); GLOMERULAR FILTRATION RATE 41.2 (>45); POTASSIUM SERUM 3.5 MEQ/L (3.5-5.1)
[2020-05-02 11:26] LABS: APPEARANCE, URINE CLEAR (CLEAR); BACTERIA, URINE AUTO 2+ (NEGATIVE); BILIRUBIN, URINE AUTO NEGATIVE (NEGATIVE); BLOOD, URINE BLOOD NEGATIVE (NEGATIVE); COLOR, URINE STRAW (YELLOW); GLUCOSE, URINE (UA) AUTO 3+ mg/dL (NEGATIVE); KETONE, URINE AUTO NEGATIVE (NEGATIVE); LEUKOCYTE ESTERASE, URINE AUTO TRACE (NEGATIVE); NITRITE, URINE AUTO NEGATIVE (NEGATIVE); PROTEIN, URINE AUTO NEGATIVE (NEGATIVE); RBC, URINE AUTO 4 /HPF (0-3); SPECIFIC GRAVITY URINE AUTO 1.003 (1.002-1.035); SQUAMOUS EPITHELIAL CELL UR AU 0 /HPF (0-6); UROBILINOGEN, URINE AUTO 0.2 mg/dL (0.0-2.0); WBC, URINE AUTO 6 /HPF (0-3)
[2020-05-02 11:28] LABS: HEMATOCRIT 46.6 % (36.0-47.0); HEMOGLOBIN 15.3 g/dl (12.0-15.5); MEAN CORPUSCULAR HEMOGLOBIN 31.8 pg (27.0-33.0); MEAN CORPUSCULAR HGB CONC 32.8 g/dl (32.0-36.5); MEAN CORPUSCULAR VOLUME 96.9 fl (80.0-96.0); PLATELET COUNT, AUTOMATED 348 10^3/uL (150-450); RED BLOOD COUNT 4.81 10^6/uL (4.00-5.40); WHITE BLOOD COUNT 11.8 10^3/uL (4.0-10.0)
== END 2020-03-29 19:25 | disposition home or self-care (01) ==
LOC: M ED 14:37
DX: N39.0 Urinary tract infection, site not specified (principal); M54.9 Dorsalgia, unspecified; G89.29 Other chronic pain; I10 Essential (primary) hypertension; Z79.899 Other long term (current) drug therapy; Z79.84 Long term (current) use of oral hypoglycemic drugs; Z79.82 Long term (current) use of aspirin; Z79.01 Long term (current) use of anticoagulants; Z88.0 Allergy status to penicillin; Z88.1 Allergy status to other antibiotic agents; Z91.013 Allergy to seafood
CPT/HCPCS: 71045; 80048; 81001; 85027; 87086; 96361; 96374; 96375; 99283; J1885; J2405

== ENCOUNTER → 2022-10-16 | Outpatient (REF) | payer MEDICARE, MEDICAID ==
[~2022-10-16] MED LIST changes: -ACET-908 PO; +ACET-910 PO; +ASPI-569 PO; -ASPI81TAEC PO; -DOXY-350 PO; +DOXY-444 PO; +FEXO-117 PO; -FEXO180T58 PO; +LEVO1TAB39 PO; -LEVO500T3 PO; +LOSA25TA13 PO; -LOSA25TA14 PO; +LOSA50TA28 PO; -LOSA50TA88 PO; -MONT10TA4 PO; +MONT10TA97 PO; +OMEP40CA4 PO; -OMEP40CA97 PO; +RISP-8 PO; -RISP1TAB3 PO
[2022-10-16 16:18] LABS: ALBUMIN 3.4 G/DL (3.2-5.2); ALKALINE PHOSPHATASE 131 U/L (46-116); ALT/SGPT 17 U/L (7.0-40); AST/SGOT < 8 U/L (<34); BILIRUBIN,TOTAL 0.3 MG/DL (0.3-1.2); BLOOD UREA NITROGEN 18 MG/DL (9-23); CALCIUM LEVEL 10.1 MG/DL (8.3-10.6); CARBON DIOXIDE LEVEL 28 MMOL/L (20-31); CHLORIDE LEVEL 100 MMOL/L (98-107); CREATININE FOR GFR 0.88 MG/DL (0.55-1.30); GLOMERULAR FILTRATION RATE > 60.0 (>45); GLUCOSE, FASTING 344 MG/DL (74-106); POTASSIUM SERUM 4.6 MMOL/L (3.5-5.1); SODIUM LEVEL 130 MMOL/L (136-145); TOTAL PROTEIN 6.5 G/DL (5.7-8.2)
== END ==
LOC: SKLAB8 15:11
PROVIDERS: ATTEND Nurse Practitioner Family
DX: R63.8 Other symptoms and signs concerning food and fluid intake (principal)

== ENCOUNTER → 2022-11-09 | Outpatient (REF) | payer MEDICARE, MEDICAID ==
[2022-11-09 07:08] LABS: HEMATOCRIT 42.9 % (36.0-47.0); HEMOGLOBIN 14.1 g/dl (12.0-15.5); MEAN CORPUSCULAR HEMOGLOBIN 30.5 pg (27.0-33.0); MEAN CORPUSCULAR HGB CONC 32.9 g/dl (32.0-36.5); MEAN CORPUSCULAR VOLUME 92.7 fl (80.0-96.0); PLATELET COUNT, AUTOMATED 308 10^3/uL (150-450); RED BLOOD COUNT 4.63 10^6/uL (4.00-5.40); WHITE BLOOD COUNT 5.7 10^3/uL (4.0-10.0)
[2022-11-09 07:30] LABS: HEMOGLOBIN A1c 7.9 % (4.0-6.0)
[2022-11-09 07:34] LABS: ALKALINE PHOSPHATASE 121 U/L (46-116); ALT/SGPT 10 U/L (7.0-40); AST/SGOT 10 U/L (<34); BILIRUBIN,TOTAL 0.4 MG/DL (0.3-1.2); BLOOD UREA NITROGEN 17 MG/DL (9-23); CALCIUM LEVEL 10.3 MG/DL (8.3-10.6); CARBON DIOXIDE LEVEL 29 MMOL/L (20-31); CHLORIDE LEVEL 102 MMOL/L (98-107); CHOLESTEROL LEVEL 148 MG/DL (<200); CHOLESTEROL RISK RATIO 3.25 (<5); CREATININE FOR GFR 0.82 MG/DL (0.55-1.30); GLOMERULAR FILTRATION RATE > 60.0 (>45); GLUCOSE, FASTING 190 MG/DL (74-106); HDL CHOLESTEROL 45.5 MG/DL (>40); LDL CHOLESTEROL 87.5 MG/DL (<100); MAGNESIUM LEVEL 1.8 MG/DL (1.8-2.4); NON-HDL-C 102.5 MG/DL; PHOSPHORUS LEVEL 3.8 MG/DL (2.4-5.1); POTASSIUM SERUM 4.6 MMOL/L (3.5-5.1); PTH INTACT 52.7 PG/ML (18.5-88.0); SODIUM LEVEL 137 MMOL/L (136-145); THYROID STIMULATING HORMONE 2.566 uIU/ML (0.55-4.78); TOTAL 25(OH) VITAMIN D 38.7 NG/ML (20.0-100.0); TOTAL PROTEIN 6.3 G/DL (5.7-8.2); TRIGLYCERIDES LEVEL 75 MG/DL (<150); VITAMIN B12 LEVEL 519 PG/ML (211-911)
== END ==
LOC: SKLAB8 07:00
PROVIDERS: ATTEND Internal Medicine
DX: N18.9 Chronic kidney disease, unspecified (principal); E11.9 Type 2 diabetes mellitus without complications; Z79.899 Other long term (current) drug therapy

== ENCOUNTER → 2023-01-17 | Outpatient (REF) | payer MEDICARE, MEDICAID ==
[~2023-01-17] MED LIST changes: -COZA50TA PO; +LOSA-528 PO
== END ==
LOC: SKLAB8 13:45
PROVIDERS: ATTEND Internal Medicine
DX: R06.02 Shortness of breath (principal); U07.1 COVID-19

== ENCOUNTER → 2023-01-18 | Outpatient (REF) | payer MEDICARE, MEDICAID ==
[2023-01-18 09:04] LABS: HEMATOCRIT 41.7 % (36.0-47.0); HEMOGLOBIN 14.1 g/dl (12.0-15.5); MEAN CORPUSCULAR HEMOGLOBIN 31.1 pg (27.0-33.0); MEAN CORPUSCULAR HGB CONC 33.8 g/dl (32.0-36.5); MEAN CORPUSCULAR VOLUME 92.1 fl (80.0-96.0); PLATELET COUNT, AUTOMATED 195 10^3/uL (150-450); RED BLOOD COUNT 4.53 10^6/uL (4.00-5.40); WHITE BLOOD COUNT 6.1 10^3/uL (4.0-10.0)
[2023-01-18 09:24] LABS: ALBUMIN 3.1 G/DL (3.2-5.2); ALKALINE PHOSPHATASE 122 U/L (46-116); ALT/SGPT 21 U/L (7.0-40); AST/SGOT 14 U/L (<34); BILIRUBIN,TOTAL 0.3 MG/DL (0.3-1.2); BLOOD UREA NITROGEN 20 MG/DL (9-23); CALCIUM LEVEL 9.4 MG/DL (8.3-10.6); CARBON DIOXIDE LEVEL 28 MMOL/L (20-31); CHLORIDE LEVEL 99 MMOL/L (98-107); CREATININE FOR GFR 0.89 MG/DL (0.55-1.30); GLOMERULAR FILTRATION RATE > 60.0 (>45); GLUCOSE, FASTING 287 MG/DL (74-106); POTASSIUM SERUM 4.5 MMOL/L (3.5-5.1); SODIUM LEVEL 135 MMOL/L (136-145); TOTAL PROTEIN 5.9 G/DL (5.7-8.2)
== END ==
LOC: SKLAB8 07:00
PROVIDERS: ATTEND Internal Medicine
DX: U07.1 COVID-19 (principal); Z79.899 Other long term (current) drug therapy

== ENCOUNTER → 2023-01-25 | Outpatient (REF) | payer MEDICARE, MEDICAID ==
[2023-01-25 09:29] LABS: HEMOGLOBIN 13.3 g/dl (12.0-15.5); MEAN CORPUSCULAR HEMOGLOBIN 31.4 pg (27.0-33.0); MEAN CORPUSCULAR VOLUME 89.6 fl (80.0-96.0); PLATELET COUNT, AUTOMATED 206 10^3/uL (150-450); RED BLOOD COUNT 4.24 10^6/uL (4.00-5.40)
[2023-01-25 09:58] LABS: ALBUMIN 3.1 G/DL (3.2-5.2); ALKALINE PHOSPHATASE 89 U/L (46-116); ALT/SGPT 15 U/L (7.0-40); AST/SGOT 12 U/L (<34); BILIRUBIN,TOTAL 0.4 MG/DL (0.3-1.2); BLOOD UREA NITROGEN 21 MG/DL (9-23); CALCIUM LEVEL 9.8 MG/DL (8.3-10.6); CARBON DIOXIDE LEVEL 28 MMOL/L (20-31); CHLORIDE LEVEL 103 MMOL/L (98-107); CREATININE FOR GFR 0.84 MG/DL (0.55-1.30); GLOMERULAR FILTRATION RATE > 60.0 (>45); GLUCOSE, FASTING 141 MG/DL (74-106); POTASSIUM SERUM 4.3 MMOL/L (3.5-5.1); SODIUM LEVEL 138 MMOL/L (136-145); TOTAL PROTEIN 5.7 G/DL (5.7-8.2)
== END ==
LOC: SKLAB8 07:00
PROVIDERS: ATTEND Internal Medicine
DX: U07.1 COVID-19 (principal); Z79.899 Other long term (current) drug therapy

== ENCOUNTER 2023-01-31 02:51 | Emergency (ER) | payer MEDICARE, MEDICAID ==
[~2023-01-31] VITALS: Ht 167.6 cm; Wt 88.0 kg
[2023-01-31 03:07] VITALS: BP 127/67
[2023-01-31 03:18] LABS: BASO % 0.2 % (0.0-1.0); EOS % 0.2 % (0.0-3.0); HEMOGLOBIN 12.5 g/dl (12.0-15.5); LYMPH # 1.2 10^3/uL (1.5-5.0); LYMPH % 7.5 % (24.0-44.0); MEAN CORPUSCULAR HEMOGLOBIN 31.3 pg (27.0-33.0); MEAN CORPUSCULAR HGB CONC 34.7 g/dl (32.0-36.5); MEAN CORPUSCULAR VOLUME 90.2 fl (80.0-96.0); MONO # 1.5 10^3/uL (0.0-0.8); NEUTROPHILS # 13.5 10^3/uL (1.5-8.5); NEUTROPHILS % 82.7 % (36.0-66.0); PLATELET COUNT, AUTOMATED 258 10^3/uL (150-450); RED BLOOD COUNT 3.99 10^6/uL (4.00-5.40); WHITE BLOOD COUNT 16.4 10^3/uL (4.0-10.0)
[2023-01-31 03:33] LABS: CK-MB VALUE MASS < 1.0 NG/ML (<3.6); LIPASE 31 U/L (12-53)
[2023-01-31 03:36] LABS: ALBUMIN 2.9 G/DL (3.2-5.2); ALKALINE PHOSPHATASE 84 U/L (46-116); ALT/SGPT 10 U/L (7.0-40); AST/SGOT 20 U/L (<34); BILIRUBIN,DIRECT 0.2 MG/DL (<0.4); BILIRUBIN,TOTAL 0.6 MG/DL (0.3-1.2); BLOOD UREA NITROGEN 10 MG/DL (9-23); CALCIUM LEVEL 8.8 MG/DL (8.3-10.6); CARBON DIOXIDE LEVEL 24 MMOL/L (20-31); CHLORIDE LEVEL 102 MMOL/L (98-107); CREATININE FOR GFR 0.81 MG/DL (0.55-1.30); GLOMERULAR FILTRATION RATE > 60.0 (>45); GLUCOSE, FASTING 231 MG/DL (74-106); POTASSIUM SERUM 4.9 MMOL/L (3.5-5.1); SODIUM LEVEL 135 MMOL/L (136-145); TOTAL PROTEIN 5.5 G/DL (5.7-8.2)
[2023-01-31 03:37] LABS: THYROID STIMULATING HORMONE 1.807 uIU/ML (0.55-4.78)
[2023-01-31 03:38] LABS: CPK CREATINE PHOSPHOKINASE 20 U/L (34-145)
[2023-01-31 04:44] LABS: CK-MB VALUE MASS < 1.0 NG/ML (<3.6)
[2023-01-31 04:54] LABS: CPK CREATINE PHOSPHOKINASE < 15 U/L (34-145)
[2023-01-31] MEDS ORDERED: FOSFOMYCIN TROMETHAMINE 3 GM POWDER PACKET (MONUROL) PO ONE (05:05)
[2023-01-31 05:15] LABS: RSV AMPLIFICATION NEGATIVE (NEGATIVE)
== END 2023-01-31 05:47 | disposition home or self-care (01) ==
LOC: EEVIPCON 02:51 → M ED 02:51
DX: R07.89 Other chest pain (principal); N39.0 Urinary tract infection, site not specified; Z88.0 Allergy status to penicillin; Z91.013 Allergy to seafood; Z88.1 Allergy status to other antibiotic agents; Z79.899 Other long term (current) drug therapy; Z79.4 Long term (current) use of insulin; E11.9 Type 2 diabetes mellitus without complications; I50.20 Unspecified systolic (congestive) heart failure; I12.9 Hypertensive chronic kidney disease with stage 1 through stage 4 chronic kidney disease, or unspecified chronic kidney disease; E78.5 Hyperlipidemia, unspecified; J44.9 Chronic obstructive pulmonary disease, unspecified; F31.9 Bipolar disorder, unspecified; F32.A Depression, unspecified; Z79.01 Long term (current) use of anticoagulants

== ENCOUNTER → 2023-02-15 | Outpatient (REF) | payer MEDICARE, MEDICAID ==
[2023-02-15 10:32] LABS: HEMATOCRIT 35.6 % (36.0-47.0); HEMOGLOBIN 11.8 g/dl (12.0-15.5); MEAN CORPUSCULAR HEMOGLOBIN 31.1 pg (27.0-33.0); MEAN CORPUSCULAR HGB CONC 33.1 g/dl (32.0-36.5); MEAN CORPUSCULAR VOLUME 93.9 fl (80.0-96.0); PLATELET COUNT, AUTOMATED 235 10^3/uL (150-450); RED BLOOD COUNT 3.79 10^6/uL (4.00-5.40); WHITE BLOOD COUNT 7.2 10^3/uL (4.0-10.0)
[2023-02-15 10:44] LABS: HEMOGLOBIN A1c 8.5 % (4.0-6.0)
[2023-02-15 10:58] LABS: ALBUMIN 2.4 G/DL (3.2-5.2); ALKALINE PHOSPHATASE 80 U/L (46-116); ALT/SGPT < 9 U/L (7.0-40); AST/SGOT < 8 U/L (<34); BILIRUBIN,TOTAL 0.3 MG/DL (0.3-1.2); BLOOD UREA NITROGEN 22 MG/DL (9-23); CALCIUM LEVEL 10.2 MG/DL (8.3-10.6); CARBON DIOXIDE LEVEL 27 MMOL/L (20-31); CHLORIDE LEVEL 104 MMOL/L (98-107); CREATININE FOR GFR 0.84 MG/DL (0.55-1.30); GLOMERULAR FILTRATION RATE > 60.0 (>45); GLUCOSE, FASTING 154 MG/DL (74-106); POTASSIUM SERUM 4.4 MMOL/L (3.5-5.1); SODIUM LEVEL 136 MMOL/L (136-145)
== END ==
LOC: SKLAB8 07:00
PROVIDERS: ATTEND Internal Medicine
DX: E11.9 Type 2 diabetes mellitus without complications (principal)

== ENCOUNTER → 2023-05-17 | Outpatient (REF) | payer MEDICARE, MEDICAID ==
[2023-05-17 08:27] LABS: HEMATOCRIT 42.8 % (36.0-47.0); HEMOGLOBIN 14.2 g/dl (12.0-15.5); MEAN CORPUSCULAR HEMOGLOBIN 31.6 pg (27.0-33.0); MEAN CORPUSCULAR HGB CONC 33.2 g/dl (32.0-36.5); MEAN CORPUSCULAR VOLUME 95.1 fl (80.0-96.0); PLATELET COUNT, AUTOMATED 218 10^3/uL (150-450); WHITE BLOOD COUNT 6.8 10^3/uL (4.0-10.0)
[2023-05-17 08:58] LABS: ALBUMIN 3.1 G/DL (3.2-5.2); ALKALINE PHOSPHATASE 102 U/L (46-116); ALT/SGPT 33 U/L (7.0-40); AST/SGOT 14 U/L (<34); BILIRUBIN,TOTAL 0.4 MG/DL (0.3-1.2); BLOOD UREA NITROGEN 26 MG/DL (9-23); CARBON DIOXIDE LEVEL 29 MMOL/L (20-31); CHLORIDE LEVEL 106 MMOL/L (98-107); CREATININE FOR GFR 0.97 MG/DL (0.55-1.30); GLOMERULAR FILTRATION RATE > 60.0 (>45); GLUCOSE, FASTING 107 MG/DL (74-106); POTASSIUM SERUM 4.6 MMOL/L (3.5-5.1); SODIUM LEVEL 141 MMOL/L (136-145); TOTAL PROTEIN 5.6 G/DL (5.7-8.2)
== END ==
LOC: SKLAB8 07:00
PROVIDERS: ATTEND Internal Medicine
DX: E11.9 Type 2 diabetes mellitus without complications (principal)

== ENCOUNTER → 2023-08-11 | Outpatient (REF) | payer MEDICARE, MEDICAID ==
[~2023-08-11] MED LIST changes: +AMLO1TAB24 PO; +BISA10SU PR; +ECOT81TA5 PO; +FLEEENE12 PR; +FLUO1TAB3 PO; +FLUO40CA PO; +LISI30TA4 PO; +LISI40TA4 PO; +NITR4TASL SL; +PANT20TA6 PO; +RA A PO
[2023-08-11 03:07] LABS: APPEARANCE, URINE CLOUDY (CLEAR); BACTERIA, URINE AUTO 1+ (NEGATIVE); BILIRUBIN, URINE AUTO NEGATIVE (NEGATIVE); BLOOD, URINE BLOOD 1+ (NEGATIVE); COLOR, URINE YELLOW (YELLOW); GLUCOSE, URINE (UA) AUTO 1+ mg/dL (NEGATIVE); KETONE, URINE AUTO NEGATIVE (NEGATIVE); LEUKOCYTE ESTERASE, URINE AUTO 3+ (NEGATIVE); NITRITE, URINE AUTO NEGATIVE (NEGATIVE); PROTEIN, URINE AUTO NEGATIVE (NEGATIVE); RBC, URINE AUTO 25 /HPF (0-3); SPECIFIC GRAVITY URINE AUTO 1.003 (1.002-1.035); SQUAMOUS EPITHELIAL CELL UR AU 10 /HPF (0-6); UROBILINOGEN, URINE AUTO 0.2 mg/dL (0.0-2.0); WBC, URINE AUTO 59 /HPF (0-3)
== END ==
LOC: SKLAB8 02:10
PROVIDERS: ATTEND Internal Medicine
DX: N39.0 Urinary tract infection, site not specified (principal)

== ENCOUNTER → 2023-08-23 | Outpatient (REF) | payer MEDICARE, MEDICAID ==
[2023-08-23 09:32] LABS: HEMATOCRIT 42.1 % (36.0-47.0); HEMOGLOBIN 14.1 g/dl (12.0-15.5); MEAN CORPUSCULAR HEMOGLOBIN 31.8 pg (27.0-33.0); MEAN CORPUSCULAR HGB CONC 33.5 g/dl (32.0-36.5); PLATELET COUNT, AUTOMATED 283 10^3/uL (150-450); RED BLOOD COUNT 4.43 10^6/uL (4.00-5.40); WHITE BLOOD COUNT 7.5 10^3/uL (4.0-10.0)
[2023-08-23 10:05] LABS: ALBUMIN 3.1 G/DL (3.2-5.2); ALKALINE PHOSPHATASE 126 U/L (46-116); ALT/SGPT 11 U/L (7.0-40); AST/SGOT < 8 U/L (<34); BILIRUBIN,TOTAL 0.5 MG/DL (0.3-1.2); BLOOD UREA NITROGEN 17 MG/DL (9-23); CALCIUM LEVEL 10.2 MG/DL (8.3-10.6); CARBON DIOXIDE LEVEL 27 MMOL/L (20-31); CHLORIDE LEVEL 101 MMOL/L (98-107); CREATININE FOR GFR 0.86 MG/DL (0.55-1.30); GLOMERULAR FILTRATION RATE > 60.0 (>45); GLUCOSE, FASTING 190 MG/DL (74-106); POTASSIUM SERUM 4.3 MMOL/L (3.5-5.1); PTH INTACT 52.4 PG/ML (18.5-88.0); SODIUM LEVEL 136 MMOL/L (136-145); TOTAL PROTEIN 6.2 G/DL (5.7-8.2)
[2023-08-23 10:06] LABS: TOTAL 25(OH) VITAMIN D 33.4 NG/ML (20.0-100.0)
[2023-08-23 10:07] LABS: HEMOGLOBIN A1c 7.5 % (4.0-6.0)
== END ==
LOC: SKLAB8 08-21 10:39
PROVIDERS: ATTEND Internal Medicine
DX: Z13.29 Encounter for screening for other suspected endocrine disorder (principal); E11.9 Type 2 diabetes mellitus without complications; Z79.899 Other long term (current) drug therapy

== ENCOUNTER → 2023-11-22 | Outpatient (REF) | payer MEDICARE, MEDICAID ==
[~2023-11-22] MED LIST changes: +RISP-105 PO; -RISP-8 PO
[2023-11-22 09:48] LABS: HEMATOCRIT 41.4 % (36.0-47.0); HEMOGLOBIN 13.9 g/dl (12.0-15.5); MEAN CORPUSCULAR HEMOGLOBIN 32.1 pg (27.0-33.0); MEAN CORPUSCULAR HGB CONC 33.6 g/dl (32.0-36.5); MEAN CORPUSCULAR VOLUME 95.6 fl (80.0-96.0); PLATELET COUNT, AUTOMATED 224 10^3/uL (150-450); RED BLOOD COUNT 4.33 10^6/uL (4.00-5.40); WHITE BLOOD COUNT 6.6 10^3/uL (4.0-10.0)
[2023-11-22 10:23] LABS: ALBUMIN 3.2 G/DL (3.2-5.2); BILIRUBIN,TOTAL 0.4 MG/DL (0.3-1.2); CALCIUM LEVEL 10.2 MG/DL (8.3-10.6); CREATININE FOR GFR 1.02 MG/DL (0.55-1.30); GLOMERULAR FILTRATION RATE 57.2 (>45); POTASSIUM SERUM 4.7 MMOL/L (3.5-5.1); TOTAL PROTEIN 5.7 G/DL (5.7-8.2)
[2023-11-22 10:48] LABS: HEMOGLOBIN A1c 6.2 % (4.0-6.0)
== END ==
LOC: SKLAB8 07:00
PROVIDERS: ATTEND Internal Medicine
DX: E11.9 Type 2 diabetes mellitus without complications (principal)

== ENCOUNTER → 2023-12-16 | Outpatient (REF) | payer MEDICARE, MEDICAID ==
[2023-12-16 08:48] LABS: HEMATOCRIT 47.1 % (36.0-47.0); HEMOGLOBIN 15.7 g/dl (12.0-15.5); MEAN CORPUSCULAR HGB CONC 33.3 g/dl (32.0-36.5); MEAN CORPUSCULAR VOLUME 96.1 fl (80.0-96.0); PLATELET COUNT, AUTOMATED 280 10^3/uL (150-450); WHITE BLOOD COUNT 13.8 10^3/uL (4.0-10.0)
[2023-12-16 09:07] LABS: ALBUMIN 3.1 G/DL (3.2-5.2); BILIRUBIN,TOTAL 0.6 MG/DL (0.3-1.2); CREATININE FOR GFR 1.23 MG/DL (0.55-1.30); GLOMERULAR FILTRATION RATE 46.1 (>45); POTASSIUM SERUM 5.2 MMOL/L (3.5-5.1); TOTAL PROTEIN 6.4 G/DL (5.7-8.2)
== END ==
LOC: SKLAB8 07:00
PROVIDERS: ATTEND Internal Medicine
DX: R19.7 Diarrhea, unspecified (principal); R11.10 Vomiting, unspecified

== ENCOUNTER → 2023-12-19 | Outpatient (REF) | payer MEDICARE, MEDICAID ==
[2023-12-19 16:52] LABS: HEMATOCRIT 39.5 % (36.0-47.0); HEMOGLOBIN 13.8 g/dl (12.0-15.5); MEAN CORPUSCULAR HEMOGLOBIN 31.9 pg (27.0-33.0); MEAN CORPUSCULAR HGB CONC 34.9 g/dl (32.0-36.5); MEAN CORPUSCULAR VOLUME 91.4 fl (80.0-96.0); PLATELET COUNT, AUTOMATED 265 10^3/uL (150-450); RED BLOOD COUNT 4.32 10^6/uL (4.00-5.40); WHITE BLOOD COUNT 7.6 10^3/uL (4.0-10.0)
[2023-12-19 17:27] LABS: ALBUMIN 3.1 G/DL (3.2-5.2); ALKALINE PHOSPHATASE 115 U/L (46-116); ALT/SGPT 26 U/L (7.0-40); AST/SGOT 12 U/L (<34); BILIRUBIN,TOTAL 0.3 MG/DL (0.3-1.2); BLOOD UREA NITROGEN 26 MG/DL (9-23); CALCIUM LEVEL 10.1 MG/DL (8.3-10.6); CARBON DIOXIDE LEVEL 27 MMOL/L (20-31); CHLORIDE LEVEL 103 MMOL/L (98-107); CREATININE FOR GFR 0.93 MG/DL (0.55-1.30); GLOMERULAR FILTRATION RATE > 60.0 (>45); GLUCOSE, FASTING 199 MG/DL (74-106); POTASSIUM SERUM 4.7 MMOL/L (3.5-5.1); SODIUM LEVEL 133 MMOL/L (136-145); TOTAL PROTEIN 5.8 G/DL (5.7-8.2)
== END ==
LOC: SKLAB8 14:00
PROVIDERS: ATTEND Internal Medicine
DX: F03.90 Unspecified dementia, unspecified severity, without behavioral disturbance, psychotic disturbance, mood disturbance, and anxiety (principal)

== ENCOUNTER → 2024-02-21 | Outpatient (REF) | payer MEDICARE, MEDICAID ==
[~2024-02-21] MED LIST changes: +DOXY-440 PO; -DOXY-444 PO; +FLUO-365 PO; -FLUO20CA22 PO
[2024-02-21 08:32] LABS: HEMATOCRIT 41.6 % (36.0-47.0); HEMOGLOBIN 14.1 g/dl (12.0-15.5); MEAN CORPUSCULAR HGB CONC 33.9 g/dl (32.0-36.5); MEAN CORPUSCULAR VOLUME 94.5 fl (80.0-96.0); PLATELET COUNT, AUTOMATED 249 10^3/uL (150-450); WHITE BLOOD COUNT 8.1 10^3/uL (4.0-10.0)
[2024-02-21 08:53] LABS: HEMOGLOBIN A1c 6.5 % (4.0-6.0)
[2024-02-21 09:05] LABS: ALBUMIN 3.2 G/DL (3.2-5.2); ALKALINE PHOSPHATASE 93 U/L (46-116); ALT/SGPT 19 U/L (7.0-40); AST/SGOT 11 U/L (<34); BILIRUBIN,TOTAL 0.4 MG/DL (0.3-1.2); BLOOD UREA NITROGEN 26 MG/DL (9-23); CALCIUM LEVEL 10.4 MG/DL (8.3-10.6); CARBON DIOXIDE LEVEL 25 MMOL/L (20-31); CHLORIDE LEVEL 108 MMOL/L (98-107); CREATININE FOR GFR 0.96 MG/DL (0.55-1.30); GLOMERULAR FILTRATION RATE > 60.0 (>45); GLUCOSE, FASTING 90 MG/DL (74-106); POTASSIUM SERUM 4.6 MMOL/L (3.5-5.1); SODIUM LEVEL 139 MMOL/L (136-145)
== END ==
LOC: SKLAB8 06:45
PROVIDERS: ATTEND Internal Medicine
DX: F03.90 Unspecified dementia, unspecified severity, without behavioral disturbance, psychotic disturbance, mood disturbance, and anxiety (principal); Z79.899 Other long term (current) drug therapy

== ENCOUNTER → 2024-02-28 | Outpatient (REF) | payer MEDICARE, MEDICAID ==
[2024-02-28 12:39] LABS: HEMATOCRIT 44.4 % (36.0-47.0); HEMOGLOBIN 15.2 g/dl (12.0-15.5); MEAN CORPUSCULAR HEMOGLOBIN 32.3 pg (27.0-33.0); MEAN CORPUSCULAR HGB CONC 34.2 g/dl (32.0-36.5); MEAN CORPUSCULAR VOLUME 94.3 fl (80.0-96.0); PLATELET COUNT, AUTOMATED 254 10^3/uL (150-450); RED BLOOD COUNT 4.71 10^6/uL (4.00-5.40); WHITE BLOOD COUNT 7.3 10^3/uL (4.0-10.0)
[2024-02-28 13:16] LABS: CREATININE FOR GFR 1.01 MG/DL (0.55-1.30); GLOMERULAR FILTRATION RATE 57.9 (>45); POTASSIUM SERUM 4.7 MMOL/L (3.5-5.1)
== END ==
LOC: SKLAB8 07:09
PROVIDERS: ATTEND Internal Medicine
DX: E11.9 Type 2 diabetes mellitus without complications (principal)

== ENCOUNTER → 2024-05-13 | Outpatient (REF) | payer MEDICARE, MEDICAID ==
[2024-05-13 09:58] LABS: BASO % 0.3 % (0.0-1.0); EOS # 0.1 10^3/uL (0.0-0.5); EOS % 1.3 % (0.0-3.0); HEMATOCRIT 42.8 % (36.0-47.0); HEMOGLOBIN 14.4 g/dl (12.0-15.5); LYMPH # 1.6 10^3/uL (1.5-5.0); LYMPH % 22.3 % (24.0-44.0); MEAN CORPUSCULAR HEMOGLOBIN 32.9 pg (27.0-33.0); MEAN CORPUSCULAR HGB CONC 33.6 g/dl (32.0-36.5); MEAN CORPUSCULAR VOLUME 97.7 fl (80.0-96.0); MONO # 0.8 10^3/uL (0.0-0.8); MONO % 10.8 % (2.0-8.0); NEUTROPHILS # 4.5 10^3/uL (1.5-8.5); PLATELET COUNT, AUTOMATED 261 10^3/uL (150-450); RED BLOOD COUNT 4.38 10^6/uL (4.00-5.40); WHITE BLOOD COUNT 6.9 10^3/uL (4.0-10.0)
[2024-05-13 10:15] LABS: ALBUMIN 3.2 G/DL (3.2-5.2); BILIRUBIN,TOTAL 0.7 MG/DL (0.3-1.2); CALCIUM LEVEL 10.5 MG/DL (8.3-10.6); CREATININE FOR GFR 1.09 MG/DL (0.55-1.30); POTASSIUM SERUM 4.4 MMOL/L (3.5-5.1); TOTAL PROTEIN 6.3 G/DL (5.7-8.2)
== END ==
LOC: SKLAB8 07:36
PROVIDERS: ATTEND Internal Medicine
DX: R11.0 Nausea (principal)

== ENCOUNTER → 2024-05-22 | Outpatient (REF) | payer MEDICARE, MEDICAID ==
[2024-05-22 10:09] LABS: HEMATOCRIT 40.2 % (36.0-47.0); HEMOGLOBIN 13.2 g/dl (12.0-15.5); MEAN CORPUSCULAR HEMOGLOBIN 32.2 pg (27.0-33.0); MEAN CORPUSCULAR HGB CONC 32.8 g/dl (32.0-36.5); PLATELET COUNT, AUTOMATED 245 10^3/uL (150-450); WHITE BLOOD COUNT 7.3 10^3/uL (4.0-10.0)
[2024-05-22 10:37] LABS: ALBUMIN 3.1 G/DL (3.2-5.2); BILIRUBIN,TOTAL 0.4 MG/DL (0.3-1.2); CALCIUM LEVEL 10.3 MG/DL (8.3-10.6); CREATININE FOR GFR 1.09 MG/DL (0.55-1.30); POTASSIUM SERUM 4.5 MMOL/L (3.5-5.1); TOTAL PROTEIN 6.1 G/DL (5.7-8.2)
== END ==
LOC: SKLAB8 06:30
PROVIDERS: ATTEND Internal Medicine
DX: E11.9 Type 2 diabetes mellitus without complications (principal)

== ENCOUNTER → 2024-06-09 | Outpatient (REF) | payer MEDICARE, MEDICAID ==
[2024-06-09 08:35] LABS: HEMATOCRIT 41.8 % (36.0-47.0); HEMOGLOBIN 13.4 g/dl (12.0-15.5); MEAN CORPUSCULAR HEMOGLOBIN 32.4 pg (27.0-33.0); MEAN CORPUSCULAR HGB CONC 32.1 g/dl (32.0-36.5); PLATELET COUNT, AUTOMATED 217 10^3/uL (150-450); RED BLOOD COUNT 4.14 10^6/uL (4.00-5.40); WHITE BLOOD COUNT 5.5 10^3/uL (4.0-10.0)
[2024-06-09 09:00] LABS: CALCIUM LEVEL 10.3 MG/DL (8.3-10.6); CREATININE FOR GFR 1.06 MG/DL (0.55-1.30); GLOMERULAR FILTRATION RATE 54.7 (>45); POTASSIUM SERUM 4.6 MMOL/L (3.5-5.1)
== END ==
LOC: SKLAB8 06:40
PROVIDERS: ATTEND Internal Medicine
DX: K08.89 Other specified disorders of teeth and supporting structures (principal); Z79.899 Other long term (current) drug therapy

== ENCOUNTER → 2024-06-13 | Outpatient (REF) | payer MEDICARE, MEDICAID ==
[2024-06-13 14:19] LABS: CREATININE FOR GFR 0.99 MG/DL (0.55-1.30); GLOMERULAR FILTRATION RATE 59.2 (>45); POTASSIUM SERUM 4.5 MMOL/L (3.5-5.1)
== END ==
LOC: SKLAB8 08:27
PROVIDERS: ATTEND Internal Medicine
DX: E87.1 Hypo-osmolality and hyponatremia (principal)

== ENCOUNTER → 2024-08-26 | Outpatient (REF) | payer MEDICARE, MEDICAID ==
[~2024-08-26] MED LIST changes: -FEXO-117 PO; +FEXO-193 PO; +NYST1POW3 TOP; -NYST1POW9 TOP
[2024-08-26 08:44] LABS: HEMATOCRIT 40.8 % (36.0-47.0); MEAN CORPUSCULAR HEMOGLOBIN 31.5 pg (27.0-33.0); MEAN CORPUSCULAR HGB CONC 31.9 g/dl (32.0-36.5); MEAN CORPUSCULAR VOLUME 98.8 fl (80.0-96.0); PLATELET COUNT, AUTOMATED 227 10^3/uL (150-450); RED BLOOD COUNT 4.13 10^6/uL (4.00-5.40); WHITE BLOOD COUNT 6.7 10^3/uL (4.0-10.0)
[2024-08-26 09:10] LABS: ALBUMIN 2.9 G/DL (3.2-5.2); BILIRUBIN,TOTAL 0.3 MG/DL (0.3-1.2); CALCIUM LEVEL 10.4 MG/DL (8.3-10.6); CREATININE FOR GFR 1.02 MG/DL (0.55-1.30); GLOMERULAR FILTRATION RATE 57.2 (>45); PHOSPHORUS LEVEL 3.6 MG/DL (2.4-5.1); POTASSIUM SERUM 4.9 MMOL/L (3.5-5.1); PTH INTACT 75.4 PG/ML (18.5-88.0); TOTAL 25(OH) VITAMIN D 46.5 NG/ML (20.0-100.0)
[2024-08-26 09:30] LABS: HEMOGLOBIN A1c 6.5 % (4.0-6.0)
== END ==
LOC: SKLAB8 07:00
PROVIDERS: ATTEND Internal Medicine
DX: Z13.29 Encounter for screening for other suspected endocrine disorder (principal); E11.9 Type 2 diabetes mellitus without complications; Z79.899 Other long term (current) drug therapy

== ENCOUNTER → 2024-11-21 | Outpatient (REF) | payer MEDICARE, MEDICAID ==
[2024-11-21 08:12] LABS: HEMATOCRIT 38.1 % (36.0-47.0); HEMOGLOBIN 12.5 g/dl (12.0-15.5); MEAN CORPUSCULAR HEMOGLOBIN 31.3 pg (27.0-33.0); MEAN CORPUSCULAR HGB CONC 32.8 g/dl (32.0-36.5); MEAN CORPUSCULAR VOLUME 95.5 fl (80.0-96.0); PLATELET COUNT, AUTOMATED 255 10^3/uL (150-450); RED BLOOD COUNT 3.99 10^6/uL (4.00-5.40); WHITE BLOOD COUNT 6.7 10^3/uL (4.0-10.0)
[2024-11-21 08:27] LABS: HEMOGLOBIN A1c 6.7 % (4.0-6.0)
[2024-11-21 08:41] LABS: ALBUMIN 2.8 G/DL (3.2-5.2); BILIRUBIN,TOTAL 0.3 MG/DL (0.3-1.2); CALCIUM LEVEL 9.7 MG/DL (8.3-10.6); CREATININE FOR GFR 1.1 MG/DL (0.55-1.30); GLOMERULAR FILTRATION RATE 52.3 (>39); POTASSIUM SERUM 4.6 MMOL/L (3.5-5.1); TOTAL PROTEIN 5.9 G/DL (5.7-8.2)
== END ==
LOC: SKLAB8 06:39
PROVIDERS: ATTEND Internal Medicine
DX: E11.9 Type 2 diabetes mellitus without complications (principal); F03.90 Unspecified dementia, unspecified severity, without behavioral disturbance, psychotic disturbance, mood disturbance, and anxiety

== ENCOUNTER → 2025-05-28 | Outpatient (REF) | payer MEDICARE, MEDICAID ==
[~2025-05-28] MED LIST changes: +LISI40TA10 PO; -LISI40TA4 PO; -PREG25CA PO; +PREG25CA63 PO
[2025-05-28 11:08] LABS: PLATELET COUNT, AUTOMATED 264 10^3/uL (150-450)
[2025-05-28 11:51] LABS: ALT/SGPT 20.0 U/L (7.0-40); AST/SGOT 16.0 U/L (<34); CALCIUM LEVEL 9.9 MG/DL (8.3-10.6); CARBON DIOXIDE LEVEL 23.0 MMOL/L (20-31); CHLORIDE LEVEL 103.0 MMOL/L (98-107); CREATININE FOR GFR 1.13 MG/DL (0.55-1.30); GLOMERULAR FILTRATION RATE 52.3 (>39); POTASSIUM SERUM 4.5 MMOL/L (3.5-5.1); SODIUM LEVEL 136.0 MMOL/L (136-145)
[2025-05-28 12:53] LABS: ESTIMATED AVERAGE GLUCOSE 166.0 MG/DL (60-110)
== END ==
LOC: SKLAB8 07:00
PROVIDERS: ATTEND Internal Medicine
DX: E11.9 Type 2 diabetes mellitus without complications (principal)